=== PATIENT | female | born 1965 | race Caucasian/White ===

== ENCOUNTER 2016-12-15 19:32 | Emergency (ER) | payer OTHER ==
[2016-12-15 19:42] VITALS: BP 156/74; PULSE 81; RESP 16; TEMP 9
--- NOTE | 2016-12-15 20:02 | ED ---
Fall HPI - General Chief Complaint: Fall Stated Complaint: FALL Time Seen by Provider: 12/15/16 19:35 Source: patient, EMS, RN notes reviewed Mode of arrival: EMS - History of Present Illness Initial Comments: 51 yo female presents to the ER with cc of right elbow pain after a fall. Patient states [place] the [place] she missed a step and she fell onto her butt in her right elbow. Patient states she has little bit of right gluteal pain as well as right elbow pain. Worsening movement or touch at the back of the elbow. Patient states she's never had there is no loss of consciousness. Patient denies any lightheadedness or dizziness prior to the fall. Patient states she's other injuries from the fall. Patient denies any skin trauma.Patient denies any recent fever, chills, shortness of breath, chest pain, back pain, abdominal pain, nausea vomiting, numbness or tingling, dysuria or hematuria, constipation or diarrhea, headaches or visual changes, or any other current symptoms. - Related Data Home Medications Medication Instructions Recorded Confirmed Albuterol Inhaler [Ventolin 2 puff INHALATION RT-Q4H PRN 07/25/14 12/15/16 Inhaler] Omeprazole 40 mg PO DAILY 07/25/14 12/15/16 Ascorbic Acid [Vitamin C] 500 mg PO DAILY 12/15/16 12/15/16 Cholecalciferol [Vitamin D3] 1,000 unit PO DAILY 12/15/16 12/15/16 Citalopram Hydrobromide [CeleXA] 20 mg PO DAILY 12/15/16 12/15/16 Cyanocobalamin [Vitamin B-12] 500 mcg PO DAILY 12/15/16 12/15/16 Loratadine [Claritin] 10 mg PO DAILY 12/15/16 12/15/16 Magnesium 200 mg PO DAILY 12/15/16 12/15/16 Ranitidine HCl [Zantac] 150 mg PO DAILY 12/15/16 12/15/16 Previous Rx's Medication Instructions Recorded Hydrocodone/Acetaminophen [[place] 1 each PO Q6HR PRN #20 tab 12/15/16 5-325] Allergies Allergy/AdvReac Type Severity Reaction Status Date / Time clarithromycin [From Biaxin] Allergy Dyspnea Verified 12/15/16 19:58 Review of Systems ROS Statement: Those systems with pertinent positive or pertinent negative responses have been documented in the HPI. ROS Other: All systems not noted in ROS Statement are negative. Past Medical History Past Medical History: Asthma, GERD/Reflux, Hypertension Additional Past Medical History / Comment(s): frequent right ankle swelling History of Any Multi-Drug Resistant Organisms: None Reported Past Surgical History: Section, Hernia Repair, Hysterectomy, Orthopedic Surgery Additional Past Surgical History / Comment(s): right ankle surg Past Anesthesia/Blood Transfusion Reactions: Motion Sickness, Postoperative Nausea & Vomiting (PONV) Past Psychological History: Anxiety, Depression Smoking Status: Former smoker Past Alcohol Use History: None Reported Past Drug Use History: None Reported General Exam - General Exam Comments Initial Comments: General: The patient is awake and alert, in no distress, and does not appear acutely ill. Neck: The neck is supple, there is no tenderness. Cardiovascular: There is a regular rate and rhythm. No murmur, rub or gallop is appreciated. Respiratory: Lungs are clear to auscultation, respirations are non-labored, breath sounds are equal. No wheezes, stridor, rales, or rhonchi. Musculoskeletal: Sensation intact with 2+ pulses. Right upper joint. Full range motion of right shoulder right wrist and right hand with less than 2 capillary refill no bony deformity. Patient does have some tenderness to the posterior aspect of right elbow over the olecranon process as well as the needle epicondyles. There is no deformity noted. No skin trauma. Patient resists range of motion due to pain. Back: Patient does have some tenderness and abrasion over the right gluteal area. No tenderness over the lumbar midline. No paraspinal tenderness. No saddle anesthesia. Neurological: CN II-XII intact, There are no obvious motor or sensory deficits. Coordination appears grossly intact. Speech is normal. Skin: Skin is warm and dry and no rashes or lesions are noted. Psychiatric: Normal mood and affect. Limitations: no limitations Course Vital Signs 12/15/16 19:35 Temperature 9.0 F L Pulse Rate 81 Respiratory 16 Rate Blood Pressure 156/74 O2 Sat by Pulse 94 L Oximetry Medical Decision Making - Medical Decision Making 51-year-old female presents emergency Department chief complaint of fall. Patient's x-ray was reviewed that does not show any acute fracture at this time. Discussed with that she is right elbow contusion and lumbar strain from the fall. We did discuss that due to her tenderness on touch and unwillingness to range of motion of her sling to help with comfort we discussed the risk of frozen shoulder and when and how to use this as well as we discussed follow-up [place]. Patient stated that she understood she has been. The plan and all questions have been answered. She will be discharged. - Radiology Data Radiology results: report reviewed, image reviewed Disposition Clinical Impression: Fall, Contusion of right elbow, Lumbar strain Disposition: HOME SELF-CARE Condition: Stable Instructions: Contusion in Adults (ED) Additional Instructions: Please use medication as discussed. Please follow up with family doctor if symptoms have not improved over the next two days. Please return to the emergency room if your symptoms increase or worsen or for any other concerns. Prescriptions: Hydrocodone/Acetaminophen [[place] 5-325] 1 each PO Q6HR PRN #20 tab PRN Reason: Pain Referrals: Scottie De La Cruz DO [Primary Care Provider] - 1-2 days Obdulio Starkey DO [Doctor of Osteopathic Medicine] - 1-2 days Time of Disposition: 20:43
--- NOTE | 2016-12-15 20:33 | XR ---
Right elbow HISTORY: Trauma and pain 3 views of the right elbow Correlation to prior right elbow 19 December 2014 Bone mineralization, joint spaces and alignment are stable. Suspect an anterior fat pad sign, joint e ffusion. No acute fracture or dislocation is evident. IMPRESSION: Nonstandard views. No acute fracture or dislocation is evident. There may be joint effusi on, consider alternate imaging, elbow MRI as indicated for persistent symptoms.
--- NOTE | 2016-12-15 20:34 | XR ---
Lumbar spine HISTORY: Trauma and pain Correlation to prior exam December 3 views of the lumbar spine There is a dextroscoliosis centered at L2. Lumbar vertebral bodies show stable height, alignment, and bone mineralization. There is multilevel spondylosis. Sclerosis present in the posterior elements. IMPRESSION: Stable exam, no acute fracture or subluxation is evident
[2016-12-15] MEDS ORDERED: HYDROcodone/APAP 5-325MG 1 EACH TAB PO STA (20:56)
== END 2016-12-15 21:10 | disposition home or self-care (01) ==
LOC: EC 19:32
DX: S39.012A Strain of muscle, fascia and tendon of lower back, initial encounter (principal); S50.01XA Contusion of right elbow, initial encounter; J45.909 Unspecified asthma, uncomplicated; K21.9 Gastro-esophageal reflux disease without esophagitis; I10 Essential (primary) hypertension; F41.9 Anxiety disorder, unspecified; F32.9 Major depressive disorder, single episode, unspecified; Z87.891 Personal history of nicotine dependence; Z79.899 Other long term (current) drug therapy; Z88.1 Allergy status to other antibiotic agents; W10.9XXA Fall (on) (from) unspecified stairs and steps, initial encounter; Y92.254 Theater (live) as the place of occurrence of the external cause
CPT/HCPCS: 72100; 99284

== ENCOUNTER → 2016-12-21 | Outpatient (CLI) | payer OTHER ==
--- NOTE | 2016-12-21 17:32 | XR ---
EXAMINATION TYPE: XR lumbar spine 2 or 3V DATE OF EXAM: 12/21/2016 5:28 PM COMPARISON: 12/15/2016 HISTORY: Fell a week ago. Back pain. TECHNIQUE: 3 views FINDINGS: There is slight lumbar dextroscoliosis. The posterior elements are intact. I see no shari niko fracture. There is no significant disc space narrowing. There is mild spurring of the endplates. Sacroiliac joints appear normal. IMPRESSION: Minimal degenerative changes and dextroscoliosis. No fracture. No change compared to old exam.
== END | disposition home or self-care (01) ==
LOC: RADXRMAIN 17:13
PROVIDERS: ATTEND Family Medicine
DX: S39.92XD Unspecified injury of lower back, subsequent encounter (principal); M47.816 Spondylosis without myelopathy or radiculopathy, lumbar region; M41.9 Scoliosis, unspecified
CPT/HCPCS: 72100

== ENCOUNTER → 2017-11-12 | Outpatient (CLI) | payer OTHER ==
--- NOTE | 2017-11-14 13:53 | US ---
EXAMINATION TYPE: US carotid duplex BILAT DATE OF EXAM: 11/12/2017 COMPARISON: NONE CLINICAL HISTORY: R42 Dizziness and giddiness. htn EXAM MEASUREMENTS: RIGHT: Peak Systolic Velocity (PSV) cm/sec ----- Right CCA: 104.0 ----- Right ICA: 144.7 ----- Right ECA: 123.7 ICA/CCA ratio: 1.4 RIGHT: End Diastole cm/sec ----- Right CCA: 29.9 ----- Right ICA: 57.5 ----- Right ECA: 26.8 LEFT: Peak Systolic Velocity (PSV) cm/sec ----- Left CCA: 85.0 ----- Left ICA: 108.4 ----- Left ECA: 95.2 ICA/CCA ratio: 1.3 LEFT: End Diastole cm/sec ----- Left CCA: 24.5 ----- Left ICA: 45.8 ----- Left ECA: 18.3 VERTEBRALS (direction of flow): Right Vertebral: Antegrade Left Vertebral: Antegrade Rhythm: Normal Mild homogeneous plaque seen IMPRESSION: 1. Elevated peak systolic velocity and end-diastolic velocity in the right internal carotid artery in dicating a stenosis of 50-69%. This favored to be closer to 50% given the aleman scale images although further evaluation with CT neck could be performed for more accurate assessment. 2. No hemodynamically significant stenosis within the left visualized carotid arterial system.
== END | disposition home or self-care (01) ==
LOC: RADUSWWP 16:19
PROVIDERS: ATTEND Family Medicine
DX: I65.21 Occlusion and stenosis of right carotid artery (principal)
CPT/HCPCS: 93880

== ENCOUNTER → 2018-02-08 | Outpatient (CLI) | payer OTHER ==
--- NOTE | 2018-02-10 08:54 | MM ---
Reason for exam: screening (asymptomatic). Last mammogram was performed 14 years and 1 month ago. History: Family history of breast cancer. Excisional biopsy of the left breast. Excisional biopsy of the right breast. Physical Findings: A clinical breast exam by your physician is recommended on an annual basis and results should be correlated with mammographic findings. MG 3D Screening Mammo W/Cad Bilateral CC and MLO view(s) were taken. Prior study comparison: August 30, 2015, mammogram. August 08, 2014, mammogram. The breast tissue is extremely dense which could obscure a lesion on mammography. Finding: There are stable typically benign fine, grouped/clustered calcifications in the upper quadrant, middle position of the left breast seen on MLO view. There is a chronic nodularity bilaterally. No significant changes in finding since August 30, 2015 and August 08, 2014. ASSESSMENT: Benign, BI-RAD 2 RECOMMENDATION: Routine screening mammogram of both breasts in 1 year.
== END | disposition home or self-care (01) ==
LOC: RADMAMWWP 12:38
PROVIDERS: ATTEND Family Medicine
DX: Z12.31 Encounter for screening mammogram for malignant neoplasm of breast (principal)
CPT/HCPCS: 77063; 77067

== ENCOUNTER → 2018-05-23 | Outpatient (CLI) | payer OTHER ==
--- NOTE | 2018-05-23 12:36 | US ---
EXAMINATION TYPE: US gallbladder DATE OF EXAM: 05/23/2018 COMPARISON: NONE CLINICAL HISTORY: 52-year-old female Gallstones K80.20. Intermittent abdominal pain and heartburn x c ouple months TECHNIQUE: Multiple sonographic images of the right upper quadrant are obtained. FINDINGS: EXAM MEASUREMENTS: Liver Length: 15.4 cm Gallbladder Wall: 0.1 cm CBD: 0.3 cm Right Kidney: 11.4 x 4.7 x 6.2 cm Pancreas: visualized portions appear within normal limits. The tail is limited by overlying midline bowel gas Liver: Echogenic and slightly heterogeneous. No focal lesion is seen. Gallbladder: wnl Evidence for sonographic De La Cruz's sign: yes CBD: visualized portions wnl, limited by overlying bowel gas Right Kidney: Small cortical-based 1.2 x 0.9 x 1.3cm hypoechoic area medial mid pole. There is mild pelvicaliectasis. IMPRESSION: 1. Echogenic and slightly heterogeneous appearance to the liver suggests underlying fatty infiltratio n or nonspecific hepatocellular disease. Correlate with LFTs, lipid profile, and patient risk factors . 2. Positive sonographic De La Cruz's sign despite the normal appearance of the gallbladder. This could re flect referred pain. If further imaging evaluation of the gallbladder is desired, consider HIDA scan with ejection fraction. 3. Mild right-sided pelvicaliectasis, probably transient. Short interval follow-up could be considere d. 4. A 6 month follow-up renal ultrasound recommended to reassess the 1.3 cm right kidney mid pole lesi on, probable cyst. Internal echoes could be artifactual or could represent debris.
== END | disposition home or self-care (01) ==
LOC: RADUSWWP 06:52
PROVIDERS: ATTEND Surgery Plastic and Reconstructive Surgery
DX: K80.20 Calculus of gallbladder without cholecystitis without obstruction (principal)
CPT/HCPCS: 76705

== ENCOUNTER → 2018-06-07 | Outpatient (CLI) | payer OTHER ==
--- NOTE | 2018-06-07 16:31 | NM ---
EXAMINATION TYPE: NM hepatobiliary w EF DATE OF EXAM: 06/07/2018 COMPARISON: NONE INDICATION: Gallstones TECHNIQUE: After the intravenous administration of 5.2 mCi Tc 99m Mebrofenin hepatobiliary scintigrap hy is performed. Images were obtained immediately post injection. FINDINGS: There is prompt uptake and excretion of radiotracer by the liver. Extrahepatic ducts are identified at 7 minutes. The gallbladder is visualized within 7 minutes. Small bowel activity is noted within 63 minutes. At one hour 8 ounces of oral ensure plus is given to mimic CCK and gallbladder ejection fraction is c alculated at 79 %, which is in the normal range. (Normal >35% and <80%.). IMPRESSION: 1. Normal hepatobiliary scan 2. Ejection fraction 79% is at the upper limits of normal. Consider biliary hyperkinesia potentially within the differential
== END | disposition home or self-care (01) ==
LOC: RADNMMAIN 12:47
PROVIDERS: ATTEND Surgery Plastic and Reconstructive Surgery
DX: K80.20 Calculus of gallbladder without cholecystitis without obstruction (principal); Z88.1 Allergy status to other antibiotic agents
CPT/HCPCS: 78226; A9537

== ENCOUNTER 2018-06-08 11:28 | Emergency (ER) | payer OTHER ==
[2018-06-08 11:32] VITALS: RESP 18
[2018-06-08 12:01] LABS: Basophils # (A) 0.1 k/uL (0-0.2); Basophils % (A) 1 %; Eosinophils # (A) 0.2 k/uL (0-0.7); Eosinophils % (A) 3 %; HCT 40.5 % (34.0-46.0); HGB 13.2 gm/dL (11.4-16.0); Lymphocytes # (A) 1.9 k/uL (1.0-4.8); Lymphocytes % (A) 25 %; MCH 26.6 pg (25.0-35.0); MCHC 32.7 g/dL (31.0-37.0); MCV 81.5 fL (80.0-100.0); Mean Platelet Volume 6.6; Monocytes # (A) 0.4 k/uL (0-1.0); Monocytes % (A) 6 %; Neutrophils # (A) 4.9 k/uL (1.3-7.7); Neutrophils % (A) 64 %; Platelet Count 264 k/uL (150-450); RBC 4.97 m/uL (3.80-5.40); RDW 13.5 % (11.5-15.5); WBC 7.6 k/uL (3.8-10.6)
[2018-06-08 12:05] LABS: ALT 27 U/L (9-52); AST 18 U/L (14-36); Albumin 4.1 g/dL (3.5-5.0); Alkaline Phosphatase 121 U/L (38-126); Amylase 79 U/L (30-110); Anion Gap 9 mmol/L; Blood Urea Nitrogen 12 mg/dL (7-17); Calcium 9.4 mg/dL (8.4-10.2); Carbon Dioxide 23 mmol/L (22-30); Chloride 105 mmol/L (98-107); Glucose 160 mg/dL (74-99); Lipase 232 U/L (23-300); Potassium 4.4 mmol/L (3.5-5.1); Sodium 137 mmol/L (137-145); Total Bilirubin 0.4 mg/dL (0.2-1.3); Total Protein 6.5 g/dL (6.3-8.2)
[2018-06-08] MEDS ORDERED: ONDANSETRON 4 MG/2 ML VIAL IVP STA ×2 (12:48→12:53)
[2018-06-08] MEDS ORDERED: PANTOPRAZOLE 40 MG/10 ML VIAL IVP STA (12:48)
[2018-06-08] MEDS ORDERED: SODIUM CHLORIDE 0.9% 1,000 ML IV STA (12:48)
[2018-06-08] MEDS ORDERED: MAG HYDROX/AL HYDROX/SIMETH 30 ML, HYOSCYAMINE ELIXIR 10 ML, CIMETIDINE HCL 300 MG PO STA ×3 (12:53)
[2018-06-08] MEDS ORDERED: KETOROLAC 30 MG/ML 1 ML VIAL IVP STA (12:53)
--- NOTE | 2018-06-08 12:56 | ED ---
Abdominal Pain HPI - General Chief Complaint: Abdominal Pain Stated Complaint: abdominal pain, vomiting, diarrhea Time Seen by Provider: 06/08/18 12:46 Source: patient, RN notes reviewed Mode of arrival: wheelchair Limitations: no limitations - History of Present Illness Initial Comments: This a 53-year-old female presents emergency Department with chief complaint of upper abdominal pain. Patient's been having ongoing pain and heartburn issues in which she's had ultrasound of the gallbladder, HIDA scan yesterday. Patient states since morning she's had severe upper abdominal pain, nausea vomiting diarrhea. Patient states that this is different than her normal symptoms. Patient denies any chest pain, shortness breath. Patient states that she is scheduled for an EGD next week. Patient states her surgeon is Dr. Cannon. - Related Data Home Medications Medication Instructions Recorded Confirmed Citalopram Hydrobromide 40 mg PO DAILY 10/03/17 06/08/18 [Citalopram HBr] Omeprazole 20 mg PO BID 10/03/17 06/08/18 Albuterol Sulfate [Proair Hfa] 2 puff INHALATION RT-Q6H PRN 06/08/18 06/08/18 Aspirin 81 mg PO Q48H 06/08/18 06/08/18 Cetirizine HCl/Pseudoephedrine 1 tab PO Q12H 06/08/18 06/08/18 [Zyrtec-D Tablet] Irbesartan/Hydrochlorothiazide 1 tab PO DAILY 06/08/18 06/08/18 [Irbesartan-Hctz 300-12.5 mg Tb] L.acidoph,Paracasei, B.lactis 1 cap PO DAILY 06/08/18 06/08/18 [Probiotic] Ranitidine HCl [Zantac] 150 mg PO BID 06/08/18 06/08/18 Umeclidinium Brm/Vilanterol Tr 1 puff INHALATION RT-DAILY 06/08/18 06/08/18 [Anoro Ellipta 62.5-25 Mcg INH] Previous Rx's Medication Instructions Recorded Ondansetron Odt [Zofran Odt] 4 mg PO Q8HR PRN #10 tab 06/08/18 Allergies Allergy/AdvReac Type Severity Reaction Status Date / Time clarithromycin [From Biaxin] Allergy Severe Dyspnea Verified 08/08/18 13:24 Review of Systems ROS Statement: Those systems with pertinent positive or pertinent negative responses have been documented in the HPI. ROS Other: All systems not noted in ROS Statement are negative. Past Medical History Past Medical History: Asthma, GERD/Reflux, Hypertension Additional Past Medical History / Comment(s): frequent right ankle swelling History of Any Multi-Drug Resistant Organisms: None Reported Past Surgical History: Section, Hernia Repair, Hysterectomy, Orthopedic Surgery Additional Past Surgical History / Comment(s): right ankle surg Past Anesthesia/Blood Transfusion Reactions: Motion Sickness, Postoperative Nausea & Vomiting (PONV) Past Psychological History: Anxiety, Depression Smoking Status: Former smoker Past Alcohol Use History: None Reported Past Drug Use History: None Reported - Past Family History Mother Family Medical History: No Reported History General Exam Limitations: no limitations General appearance: alert, in no apparent distress Head exam: Present: atraumatic, normocephalic, normal inspection Respiratory exam: Present: normal lung sounds bilaterally. Absent: respiratory distress, wheezes, rales, rhonchi, stridor Cardiovascular Exam: Present: regular rate, normal rhythm, normal heart sounds. Absent: systolic murmur, diastolic murmur, rubs, gallop, clicks GI/Abdominal exam: Present: soft, tenderness (Moderate epigastric tenderness), normal bowel sounds. Absent: distended, guarding, rebound, rigid Back exam: Absent: CVA tenderness (R), CVA tenderness (L) Course Vital Signs 06/08/18 06/08/18 11:29 13:50 Temperature 98.3 F Pulse Rate 75 59 L Respiratory 18 18 Rate Blood Pressure 164/76 140/66 O2 Sat by Pulse 97 94 L Oximetry Medical Decision Making - Medical Decision Making 53-year-old female presented for ongoing abdominal issues, nausea vomiting. Patient had a HIDA scan yesterday which shows dysfunctional gallbladder. Patient will given antiemetics, Toradol and Protonix in her symptoms have resolved. Patient will be discharged with Zofran and she'll follow-up with her surgeon. - Lab Data Result diagrams: 06/08/18 11:36 06/08/18 11:36 Lab Results 06/08/18 06/08/18 06/08/18 Range/Units 11:36 11:36 13:45 WBC 7.6 (3.8-10.6) k/uL RBC 4.97 (3.80-5.40) m/uL Hgb 13.2 (11.4-16.0) gm/dL Hct 40.5 (34.0-46.0) % MCV 81.5 (80.0-100.0) fL MCH 26.6 (25.0-35.0) pg MCHC 32.7 (31.0-37.0) g/dL RDW 13.5 (11.5-15.5) % Plt Count 264 (150-450) k/uL Neutrophils % 64 % Lymphocytes % 25 % Monocytes % 6 % Eosinophils % 3 % Basophils % 1 % Neutrophils # 4.9 (1.3-7.7) k/uL Lymphocytes # 1.9 (1.0-4.8) k/uL Monocytes # 0.4 (0-1.0) k/uL Eosinophils # 0.2 (0-0.7) k/uL Basophils # 0.1 (0-0.2) k/uL Sodium 137 (137-145) mmol/L Potassium 4.4 (3.5-5.1) mmol/L Chloride 105 (98-107) mmol/L Carbon Dioxide 23 (22-30) mmol/L Anion Gap 9 mmol/L BUN 12 (7-17) mg/dL Creatinine 0.61 (0.52-1.04) mg/dL Est GFR (CKD-EPI)AfAm >90 (>60 ml/min/1.73 sqM) Est GFR (CKD-EPI)NonAf >90 (>60 ml/min/1.73 sqM) Glucose 160 H (74-99) mg/dL Calcium 9.4 (8.4-10.2) mg/dL Total Bilirubin 0.4 (0.2-1.3) mg/dL AST 18 (14-36) U/L ALT 27 (9-52) U/L Alkaline Phosphatase 121 (38-126) U/L Total Protein 6.5 (6.3-8.2) g/dL Albumin 4.1 (3.5-5.0) g/dL Amylase 79 (30-110) U/L Lipase 232 (23-300) U/L Urine Color Light Yellow Urine Appearance Clear (Clear) Urine pH 6.5 (5.0-8.0) Ur Specific [place] 1.007 (1.001-1.035) Urine Protein Negative (Negative) Urine Glucose (UA) Negative (Negative) Urine Ketones Negative (Negative) Urine Blood Negative (Negative) Urine Nitrite Negative (Negative) Urine Bilirubin Negative (Negative) Urine Urobilinogen <2.0 (<2.0) mg/dL Ur Leukocyte Esterase Small H (Negative) Urine WBC 2 (0-5) /hpf Ur Squamous Epith Cells <1 (0-4) /hpf Urine Mucus Rare H (None) /hpf Disposition Clinical Impression: Nausea & vomiting, Biliary dyskinesia Disposition: HOME SELF-CARE Condition: Stable Instructions: Acute Nausea and Vomiting (ED) Additional Instructions: Please return to the Emergency Department if symptoms worsen or any other concerns. Prescriptions: Ondansetron Odt [Zofran Odt] 4 mg PO Q8HR PRN #10 tab PRN Reason: Nausea Is patient prescribed a controlled substance at d/c from ED?: No Referrals: Scottie De La Cruz DO [Primary Care Provider] - 1-2 days Dora Knapp MD [STAFF PHYSICIAN] - 1-2 days Time of Disposition: 14:44
[2018-06-08 14:17] LABS: Appearance,Urine Clear (Clear); Bilirubin,Urine Negative (Negative); Blood,Urine Negative (Negative); Color,Urine Light Yellow; Glucose,Urine (UA) Negative (Negative); Ketones,Urine Negative (Negative); Leukocyte Esterase,Urine Small (Negative); Mucus,Urine Rare /hpf; Nitrite,Urine Negative (Negative); PH, Urine 6.5 (5.0-8.0); Protein,Urine Negative (Negative); Specific Gravity,Urine 1.007 (1.001-1.035); Squamous Epithelial Cell,Urine <1 /hpf (0-4); Urobilinogen,Urine <2.0 mg/dL (<2.0); WBC,Urine 2 /hpf (0-5)
[2018-06-08 15:02] VITALS: BP 126/77; PULSE 86; TEMP 98.5
== END 2018-06-08 15:01 | disposition home or self-care (01) ==
LOC: EC 11:28
DX: K82.8 Other specified diseases of gallbladder (principal); R11.2 Nausea with vomiting, unspecified; R19.7 Diarrhea, unspecified; R10.13 Epigastric pain; J45.909 Unspecified asthma, uncomplicated; K21.9 Gastro-esophageal reflux disease without esophagitis; I10 Essential (primary) hypertension; F32.9 Major depressive disorder, single episode, unspecified; F41.9 Anxiety disorder, unspecified; Z87.891 Personal history of nicotine dependence; Z79.82 Long term (current) use of aspirin; Z79.51 Long term (current) use of inhaled steroids; Z79.899 Other long term (current) drug therapy; Z88.1 Allergy status to other antibiotic agents
CPT/HCPCS: 36415; 80053; 82150; 83690; 85025; 81001; 99284; 96374; 96375 ×2; 96361; J2405; J1885; C9113

== ENCOUNTER 2018-06-20 13:01 | Day surgery (SDC) | payer OTHER ==
[2018-06-16 14:48] VITALS: BMI 31.7
--- NOTE | 2018-06-19 17:02 | P.GSHP ---
History of Present Illness H&P Date: 06/20/18 CHIEF COMPLAINT: GERD HISTORY OF PRESENT ILLNESS: The patient is a 53-year-old female who presents reports gastroesophageal reflux disease. Upper endoscopy was offered for further evaluation and management. PAST MEDICAL HISTORY: Please see list. PAST SURGICAL HISTORY: Please see list. MEDICATIONS: Please see list. ALLERGIES: Please see list. SOCIAL HISTORY: No illicit drug use FAMILY HISTORY: No reports of Crohn disease or ulcerative colitis. REVIEW OF ORGAN SYSTEMS: CONSTITUTIONAL: No reports of fevers or chills. GI: Denies any blood in stools or constipation. PHYSICAL EXAM: VITAL SIGNS: Stable GENERAL: Well-developed and pleasant in no acute distress. HEENT: No scleral icterus. Extraocular movements grossly intact. Moist buccal mucosa. NECK: Supple without lymphadenopathy. CHEST: Unlabored respirations. Equal bilateral excursions. CARDIOVASCULAR: Regular rate and rhythm. Distal 2+ pulses. ABDOMEN: Soft, nondistended. MUSCULOSKELETAL: No clubbing, cyanosis, or edema. ASSESSMENT: 1. Gastroesophageal reflux disease PLAN: 1. Recommend proceeding with an upper endoscopy Past Medical History Past Medical History: Asthma, GERD/Reflux, Hypertension Additional Past Medical History / Comment(s): frequent right ankle swelling. ABD PAIN WITH N/V History of Any Multi-Drug Resistant Organisms: None Reported Past Surgical History: Section, Hernia Repair, Hysterectomy, Orthopedic Surgery Additional Past Surgical History / Comment(s): right ankle surg Past Anesthesia/Blood Transfusion Reactions: Motion Sickness, Postoperative Nausea & Vomiting (PONV) Smoking Status: Former smoker - Past Family History Mother Family Medical History: No Reported History Medications and Allergies Home Medications Medication Instructions Recorded Confirmed Type Citalopram Hydrobromide 40 mg PO DAILY 10/03/17 06/16/18 History [Citalopram HBr] Omeprazole 20 mg PO BID 10/03/17 06/16/18 History Albuterol Sulfate [Proair Hfa] 2 puff INHALATION RT-Q6H PRN 06/08/18 06/16/18 History Aspirin 81 mg PO Q48H 06/08/18 06/16/18 History Cetirizine HCl/Pseudoephedrine 1 tab PO Q12H 06/08/18 06/16/18 History [Zyrtec-D Tablet] Irbesartan/Hydrochlorothiazide 1 tab PO DAILY 06/08/18 06/16/18 History [Irbesartan-Hctz 300-12.5 mg Tb] L.acidoph,Paracasei, B.lactis 1 cap PO DAILY 06/08/18 06/16/18 History [Probiotic] Ondansetron Odt [Zofran Odt] 4 mg PO Q8HR PRN #10 tab 06/08/18 06/16/18 Rx Ranitidine HCl [Zantac] 150 mg PO BID 06/08/18 06/16/18 History Umeclidinium Brm/Vilanterol Tr 1 puff INHALATION RT-DAILY 06/08/18 06/16/18 History [Anoro Ellipta 62.5-25 Mcg INH] Allergies Allergy/AdvReac Type Severity Reaction Status Date / Time clarithromycin [From Biaxin] Allergy Severe Dyspnea Verified 06/16/18 14:45
[2018-06-20 13:57] VITALS: RESP 18; TEMP 98.2
[2018-06-20] MEDS: LACTATED RINGERS 1,000 ML IV SCH ×2 (13:58→15:05)
[2018-06-20] MEDS ORDERED: LIDOCAINE 1% 20 ML VIAL (10MG/ML) FOR IV START INTRADERMA ONE (13:58)
[2018-06-20] MEDS ORDERED: PROPOFOL 10 MG/ML 20 ML VIAL IV ONE (15:10)
--- NOTE | 2018-06-20 15:27 | P.PCN ---
Date of Procedure: 06/20/18 Description of Procedure: PREOPERATIVE DIAGNOSIS: Gastroesophageal reflux disease. Epigastric abdominal pain POSTOPERATIVE DIAGNOSIS: Gastritis, with recent bleeding Acute gastric ulcer along antrum Gastroesophageal reflux disease. OPERATION: Esophagogastroduodenoscopy with biopsies along antrum. SURGEON: Dora Knapp MD ANESTHESIA: MAC. INDICATIONS: The patient is a 53-year-old female who presents with a history of reflux disease and epigastric abdominal pain. Benefits and risks of the procedure were described. Informed consent was obtained. DESCRIPTION: The patient was brought into the endoscopy suite and laid in the left lateral decubitus position. An Olympus gastroscope was passed along the posterior oropharynx down to the distal esophagus where the squamocolumnar junction was encountered at 41 cm from the incisors. The stomach was entered and no bile reflux was found. Additional findings are listed below. Biopsies with cold forceps were obtained of the antrum. The first through third portion of the duodenum was examined and unremarkable. Retroflexion of the scope confirmed Hill grade 1 lower esophageal valve. The squamocolumnar junction demonstrated no LA grade A erosive esophagitis. The stomach was desufflated. The patient tolerated the procedure well. FINDINGS: Squamocolumnar junction 41 cm from the incisors. Diaphragmatic hiatus at 41 cm. Hill grade 1 lower esophageal valve. No LA grade A erosive esophagitis. Gastric ulcer, acute along antrum biopsy obtained No active duodenitis. RECOMMENDATIONS: Upper endoscopy as needed. Plan - Discharge Summary New Discharge Prescriptions: No Action Omeprazole 20 mg PO BID Citalopram Hydrobromide [Citalopram HBr] 40 mg PO DAILY Ranitidine HCl [Zantac] 150 mg PO BID L.acidoph,Paracasei, B.lactis [Probiotic] 1 cap PO DAILY Albuterol Sulfate [Proair Hfa] 2 puff INHALATION RT-Q6H PRN PRN Reason: Shortness Of Breath Irbesartan/Hydrochlorothiazide [Irbesartan-Hctz 300-12.5 mg Tb] 1 tab PO DAILY Umeclidinium Brm/Vilanterol Tr [Anoro Ellipta 62.5-25 Mcg INH] 1 puff INHALATION RT-DAILY Cetirizine HCl/Pseudoephedrine [Zyrtec-D Tablet] 1 tab PO Q12H Aspirin 81 mg PO Q48H Ondansetron Odt [Zofran Odt] 4 mg PO Q8HR PRN #10 tab PRN Reason: Nausea Discharge Medication List Citalopram Hydrobromide [Citalopram HBr] 40 mg PO DAILY 10/03/17 [History] Omeprazole 20 mg PO BID 10/03/17 [History] Albuterol Sulfate [Proair Hfa] 2 puff INHALATION RT-Q6H PRN 06/08/18 [History] Aspirin 81 mg PO Q48H 06/08/18 [History] Cetirizine HCl/Pseudoephedrine [Zyrtec-D Tablet] 1 tab PO Q12H 06/08/18 [History ] Irbesartan/Hydrochlorothiazide [Irbesartan-Hctz 300-12.5 mg Tb] 1 tab PO DAILY 06/08/18 [History] L.acidoph,Paracasei, B.lactis [Probiotic] 1 cap PO DAILY 06/08/18 [History] Ondansetron Odt [Zofran Odt] 4 mg PO Q8HR PRN #10 tab 06/08/18 [Rx] Ranitidine HCl [Zantac] 150 mg PO BID 06/08/18 [History] Umeclidinium Brm/Vilanterol Tr [Anoro Ellipta 62.5-25 Mcg INH] 1 puff INHALATION RT-DAILY 06/08/18 [History]
[2018-06-20 15:34] VITALS: BP 138/78
[2018-06-20 15:48] VITALS: PULSE 68
== END 2018-06-20 16:03 | disposition home or self-care (01) ==
LOC: ORWHC2ENDO 13:01
PROVIDERS: ATTEND Surgery Plastic and Reconstructive Surgery
DX: K22.10 Ulcer of esophagus without bleeding (principal); K25.3 Acute gastric ulcer without hemorrhage or perforation; K29.71 Gastritis, unspecified, with bleeding; K21.9 Gastro-esophageal reflux disease without esophagitis; J45.909 Unspecified asthma, uncomplicated; I10 Essential (primary) hypertension; Z87.891 Personal history of nicotine dependence; Z79.899 Other long term (current) drug therapy; Z79.82 Long term (current) use of aspirin; Z88.1 Allergy status to other antibiotic agents
CPT/HCPCS: 43239; J2704; 88305

== ENCOUNTER 2018-07-14 10:19 | Day surgery (SDC) | payer OTHER ==
[2018-07-13 10:30] VITALS: BMI 31.7
--- NOTE | 2018-07-13 19:11 | P.GSHP ---
History of Present Illness H&P Date: 07/14/18 CHIEF COMPLAINT: Cholecystitis HISTORY OF PRESENT ILLNESS: The patient is a 53-year-old female who presents with history of epigastric including right upper quadrant abdominal pain. She underwent diagnostic studies for her gallbladder. Separately her clinical picture was consistent with cholecystitis. Now she presents for surgical intervention. PAST MEDICAL HISTORY: Please see list PAST SURGICAL HISTORY: Please see list MEDICATIONS: Please see list ALLERGIES: Denies. SOCIAL HISTORY: No illicit drug use or recent tobacco use FAMILY HISTORY: Pertinent for gallbladder disease REVIEW OF ORGAN SYSTEMS: CONSTITUTIONAL: No reports of fevers or chills. HEENT: Denies any troubles with the vision or hearing. PHYSICAL EXAM: VITAL SIGNS: Afebrile vital signs stable GENERAL: Well-developed pleasant in no acute distress. HEENT: No scleral icterus. Extraocular movements grossly intact. Moist buccal mucosa. NECK: Supple without lymphadenopathy. CHEST: Unlabored respirations. Equal bilateral excursions. CARDIOVASCULAR: Regular rate regular rhythm rhythm. Distal 2+ pulses. ABDOMEN: Soft, nondistended. Tender along the epigastrium and right upper quadrant. MUSCULOSKELETAL: No clubbing, cyanosis, or edema. NEURO: Cranial nerves II to XII within normal limits. No focal or lateralizing signs. PSYCH: Alert and oriented to person, place and time. SKIN: Well-perfused good skin turgor. ASSESSMENT: 1. Epigastric and right upper quadrant abdominal pain 2. Chronic cholecystitis 3. Symptomatic gallstones. PLAN: 1. Will need a robotic cholecystectomy possible open. Benefits and risks were described. 2. Heparin for DVT prophylaxis 5000 units. 3. Antibiotic prophylaxis. Past Medical History Past Medical History: Asthma, GERD/Reflux, Hypertension Additional Past Medical History / Comment(s): frequent right ankle swelling. ABD PAIN WITH N/V History of Any Multi-Drug Resistant Organisms: None Reported Past Surgical History: Section, Hernia Repair, Hysterectomy, Orthopedic Surgery Additional Past Surgical History / Comment(s): right ankle surg Past Anesthesia/Blood Transfusion Reactions: Motion Sickness, Postoperative Nausea & Vomiting (PONV) Smoking Status: Former smoker - Past Family History Mother Family Medical History: No Reported History Medications and Allergies Home Medications Medication Instructions Recorded Confirmed Type Citalopram Hydrobromide 40 mg PO QAM 10/03/17 07/13/18 History [Citalopram HBr] Albuterol Sulfate [Proair Hfa] 2 puff INHALATION RT-Q6H PRN 06/08/18 07/13/18 History Cetirizine HCl/Pseudoephedrine 1 tab PO Q12H PRN 06/08/18 07/13/18 History [Zyrtec-D Tablet] Irbesartan/Hydrochlorothiazide 1 tab PO QAM 06/08/18 07/13/18 History [Irbesartan-Hctz 300-12.5 mg Tb] L.acidoph,Paracasei, B.lactis 1 cap PO DAILY 06/08/18 07/13/18 History [Probiotic] Ondansetron Odt [Zofran Odt] 4 mg PO Q8HR PRN #10 tab 06/08/18 07/13/18 Rx Umeclidinium Brm/Vilanterol Tr 1 puff INHALATION RT-DAILY 06/08/18 07/13/18 History [Anoro Ellipta 62.5-25 Mcg INH] Omeprazole 40 mg PO QAM 07/13/18 07/13/18 History Sucralfate [Carafate] 1 gm PO ACHS 07/13/18 07/13/18 History Allergies Allergy/AdvReac Type Severity Reaction Status Date / Time clarithromycin [From Biaxin] Allergy Severe Dyspnea Verified 07/13/18 10:19
[~2018-07-14 10:19] MED LIST: DEXAMETHASONE SOD PHOSPHATE 10 MG/ML 1 ML VIAL IV ONE; HEPARIN SODIUM,PORCINE 5,000 UNIT/ML 1 ML VIAL SQ ONE; HEPARIN SODIUM,PORCINE 5,000 UNIT/ML 1 ML VIAL SQ STA; INDOCYANINE GREEN 25 MG VIAL IV STA; LACTATED RINGERS 1,000 ML IV SCH; MIDAZOLAM 2 MG/2 ML VIAL IV PRN; ONDANSETRON 4 MG/2 ML VIAL IVP ONE; SCOPOLAMINE 1.5MG/72HR PATCH TRANSDERM ONE; ceFAZolin IN SWFI 2 GM/20 ML SYRINGE IVP ONE
[2018-07-14] MEDS ORDERED: LIDOCAINE 1% 20 ML VIAL (10MG/ML) FOR IV START INTRADERMA ONE (11:05)
[2018-07-14] MEDS ORDERED: ePHEDrine SULFATE/0.9% NACL/PF 50 MG/5 ML SYRINGE IV ONE (12:26)
[2018-07-14] MEDS ORDERED: PROPOFOL 10 MG/ML 20 ML VIAL IV ONE (12:26)
[2018-07-14] MEDS ORDERED: INDOCYANINE GREEN 25 MG VIAL IV ONE (12:26)
[2018-07-14] MEDS ORDERED: GLYCOPYRROLATE 0.2 MG/ML 2 ML VIAL ONE (12:26)
[2018-07-14] MEDS ORDERED: NEOSTIGMINE 1 MG/ML 10 ML VIAL ONE (12:26)
[2018-07-14] MEDS ORDERED: fentaNYL (PF) 50 MCG/ML 2 ML AMP ONE (12:26)
[2018-07-14] MEDS ORDERED: HYDROmorphone (PF) 1 MG/ML ONE (12:26)
[2018-07-14] MEDS ORDERED: MIDAZOLAM 2 MG/2 ML VIAL ONE (12:26)
[2018-07-14] MEDS ORDERED: ROCURONIUM BROMIDE 10 MG/ML 10 ML VIAL IV ONE (12:26)
[2018-07-14] MEDS ORDERED: SUCCINYLCHOLINE CHLORIDE 100 MG/5 ML SYR IV ONE (12:26)
[2018-07-14] MEDS ORDERED: LIDOCAINE 1% INJ 10MG/ML (20 ML MDV) ONE (12:26)
[2018-07-14] MEDS ORDERED: BUPIVACAIN-EPI 0.25%-1:200,000 30 ML VIAL SQ ONE (12:48)
--- NOTE | 2018-07-14 13:45 | P.OP ---
Date of Procedure: 07/14/18 Description of Procedure: SURGEON: KARY KELLEY MD PREOPERATIVE DIAGNOSES: 1. Right upper quadrant abdominal pain 2. Chronic cholecystitis 3. Hypertensive heart disease 4. Depression 5. Asthma 6. Gastroesophageal reflux disease POSTOPERATIVE DIAGNOSES: 1. Right upper quadrant abdominal pain 2. Chronic cholecystitis 3. Hypertensive heart disease 4. Depression 5. Asthma 6. Gastroesophageal reflux disease 7. Severe peritoneal adhesions, midline and right upper quadrant OPERATION: 1. Robotic-assisted da Rachel Xi laparoscopic extensive lysis of adhesions 2. Robotic-assisted da Rachel Xi laparoscopic cholecystectomy, multiport with FIREFLY ESTIMATED BLOOD LOSS: 5 mL. SPECIMENS REMOVED: Gallbladder. COMPLICATIONS: None. OPERATIVE FINDINGS: 1. Chronic cholecystitis INDICATIONS: The patient is a 53-year-old female who presents with cholelcystitis. Surgical intervention with a laparoscopic cholecystectomy was described at length including injury to the biliary tree, bleeding, infection, need for further surgery. Informed consent was obtained. Robotic assisted laparoscopic approach was described. Benefits and risks of the procedure including but not limited to bleeding, infection, injury to the biliary tree was described. Informed consent was obtained. DESCRIPTION OF PROCEDURE: Patient was brought to the operating room, placed in supine position. After general induction, the abdomen had been prepped and draped in standard sterile fashion. The robotic da Rachel XI system was primed. After a timeout protocol was performed, the patient had been prepped and draped in standard sterile fashion. The patient was injected with indocyanine green. A 5 mm 0 degrees laparoscopic trocar entry was performed along the left upper quadrant. The abdomen insufflated to 15 mmHg pressure which she tolerated well. Diagnostic laparoscopy demonstrated no injury to bowel viscera or mesentery. Severe midline peritoneal adhesions of greater omentum to abdominal wall was found from previous open laparotomy. Severe adhesions involving the liver including shan-hepatic lesions were found. Next, two 8 mm robotic ports were placed along the right upper abdomen. The camera 8-mm port was maintained along the epigastrium. Another 8 mm port was placed along the left upper abdominal wall after exchanging the 5 mm port. Please note that the ports were placed at least 10 to 15 cm away from the target anatomy of the gallbladder. The robot was docked along the left lateral abdomen. The patient was repositioned in reverse Trendelenburg position. Using a grasper for arm 3, a grasper for arm 4, including hook cautery for arm 1 , the robotic system was docked and primed as described. Instruments were interchanged by the preschool teacher assistant including vessel sealer, Bovie cautery and clip appliers. I had sat at the console. Extensive lysis of adhesions over 10 minutes were performed using vessel sealer to address the midline, right upper quadrant and shan-hepatic adhesions. Adhesions were identified along the infundibulum of the gallbladder and addressed using hook cautery. The gallbladder fundus was retracted over the dome of the liver. Initial attention was brought to the infundibulum which was gently retracted in the inferior lateral approach. Using a grasper, the cystic duct including the cystic artery was carefully skeletonized. FIREFLY was used to identify the cystic artery and cystic structures. Large PLASTIC clips were used throughout the entire case. Using a clip ramp flight attendant 2 clips were placed proximally, and 1 clip was placed distally along the cystic duct and then cauterized with the cautery. Again care was taken to avoid any injury to the biliary tree as the common bile duct was clearly visualized during this portion of dissection. Next, the cystic artery was similarly clipped and cauterized. Electro-Bovie cautery was used to remove the gallbladder from the hepatic fossa. Hemostasis was checked and found to be adequate. The robot was undocked. I re-scrubbed into the case. Using a 10 mm Endo Catch bag via the left upper quadrant incision, the specimen was removed from the abdominal cavity. All pneumoperitoneum instruments were evacuated from the abdominal cavity. The incisions were reapproximated using 4-0 Monocryl in an interrupted subcuticular fashion. Fascial defects were less than 8 mm in size. Please note along the trocar sites, local anesthetic was placed as a field block prior to insertion of all instruments. Liquid glue was applied to the skin. At the end of the procedure needle, sponge, and instrument count had been verified correct by the ophthalmic surgical assistant. The patient was transferred to postanesthesia care unit in stable condition. Intraoperative films were shared with the patient's family who were very pleased with the level of care. Console time 29 minutes Plan - Discharge Summary New Discharge Prescriptions: New HYDROcodone/APAP 7.5-325MG [[place] 7.5-325] 1 tab PO Q4H PRN 3 Days #18 tab PRN Reason: Pain No Action Citalopram Hydrobromide [Citalopram HBr] 40 mg PO QAM L.acidoph,Paracasei, B.lactis [Probiotic] 1 cap PO DAILY Albuterol Sulfate [Proair Hfa] 2 puff INHALATION RT-Q6H PRN PRN Reason: Shortness Of Breath Irbesartan/Hydrochlorothiazide [Irbesartan-Hctz 300-12.5 mg Tb] 1 tab PO QAM Umeclidinium Brm/Vilanterol Tr [Anoro Ellipta 62.5-25 Mcg INH] 1 puff INHALATION RT-DAILY Cetirizine HCl/Pseudoephedrine [Zyrtec-D Tablet] 1 tab PO Q12H PRN PRN Reason: Allergy Symptoms Ondansetron Odt [Zofran Odt] 4 mg PO Q8HR PRN #10 tab PRN Reason: Nausea Sucralfate [Carafate] 1 gm PO ACHS Omeprazole 40 mg PO QAM Discharge Medication List Citalopram Hydrobromide [Citalopram HBr] 40 mg PO QAM 10/03/17 [History] Albuterol Sulfate [Proair Hfa] 2 puff INHALATION RT-Q6H PRN 06/08/18 [History] Cetirizine HCl/Pseudoephedrine [Zyrtec-D Tablet] 1 tab PO Q12H PRN 06/08/18 [ History] Irbesartan/Hydrochlorothiazide [Irbesartan-Hctz 300-12.5 mg Tb] 1 tab PO QAM 06/18 [History] L.acidoph,Paracasei, B.lactis [Probiotic] 1 cap PO DAILY 06/08/18 [History] Ondansetron Odt [Zofran Odt] 4 mg PO Q8HR PRN #10 tab 06/08/18 [Rx] Umeclidinium Brm/Vilanterol Tr [Anoro Ellipta 62.5-25 Mcg INH] 1 puff INHALATION RT-DAILY 06/08/18 [History] Omeprazole 40 mg PO QAM 07/13/18 [History] Sucralfate [Carafate] 1 gm PO ACHS 07/13/18 [History] HYDROcodone/APAP 7.5-325MG [[place] 7.5-325] 1 tab PO Q4H PRN 3 Days #18 tab 07/14 [Rx] Patient Instructions/Handouts: *Surgery [facility] - Scopalamine Patch Instructions
[2018-07-14 13:53] VITALS: TEMP 98.7
[2018-07-14 14:03] VITALS: RESP 16
[2018-07-14] MEDS: fentaNYL (PF) 50 MCG/ML 2 ML AMP IV PRN ×2 (14:22→14:59)
[2018-07-14] MEDS ORDERED: HYDROcodone/APAP 7.5-325MG 1 EACH TAB PO ONE (16:45)
[2018-07-14] MEDS ORDERED: HALOPERIDOL LACTATE 5 MG/ML 1 ML VIAL IVP ONE (17:49)
[2018-07-14] MEDS ORDERED: ONDANSETRON 4 MG/2 ML VIAL IVP ONE (17:55)
[2018-07-14] MEDS ORDERED: LACTATED RINGERS 1,000 ML IV ONE (18:14)
[2018-07-14 18:27] VITALS: BP 137/76; PULSE 76
== END 2018-07-14 19:51 | disposition home or self-care (01) ==
LOC: OR 10:19
PROVIDERS: ATTEND Surgery Plastic and Reconstructive Surgery
DX: K81.1 Chronic cholecystitis (principal); K66.0 Peritoneal adhesions (postprocedural) (postinfection); I11.9 Hypertensive heart disease without heart failure; F32.9 Major depressive disorder, single episode, unspecified; J45.909 Unspecified asthma, uncomplicated; K21.9 Gastro-esophageal reflux disease without esophagitis; Z79.899 Other long term (current) drug therapy; Z88.1 Allergy status to other antibiotic agents; Z87.891 Personal history of nicotine dependence
CPT/HCPCS: 47562; J2250; J1644; J1100; J2710; J2405; J2001; J3010; J1170; J0330; J2704; J0690; 88304

== ENCOUNTER → 2018-11-08 | Outpatient (CLI) | payer OTHER ==
--- NOTE | 2018-11-08 14:41 | XR ---
EXAMINATION TYPE: XR chest 2V DATE OF EXAM: 11/08/2018 COMPARISON: 10/04/2017 HISTORY: 53-year-old female moderate persistent asthma TECHNIQUE: Frontal and lateral views FINDINGS: Heart normal size. Aorta and pulmonary vasculature within normal limits. Some strandy atelectasis at the left base. Mild hyperinflation. No consolidation or pleural effusion. IMPRESSION: Mild hyperinflation may reflect asthma. Strandy atelectasis at the left base. No acute cardiopulmonar y process.
== END ==
LOC: RADXRMAIN 10:38
PROVIDERS: ATTEND Family Medicine
DX: J98.11 Atelectasis (principal)
CPT/HCPCS: 71046

== ENCOUNTER → 2018-11-21 | Outpatient (CLI) | payer OTHER ==
--- NOTE | 2018-11-21 13:54 | US ---
EXAMINATION TYPE: US carotid duplex BILAT DATE OF EXAM: 11/21/2018 COMPARISON: 11/12/2017 CLINICAL HISTORY: 53-year-old female I65.29 occlusion stenosis. TECHNIQUE: Carotid duplex ultrasound examination. Indirect Doppler criteria was utilized. FINDINGS: EXAM MEASUREMENTS: RIGHT: Peak Systolic Velocity (PSV) cm/sec ----- Right CCA: 92.8 ----- Right ICA: 117.4 ----- Right ECA: 88.6 ICA/CCA ratio: 1.3 RIGHT: End Diastole cm/sec ----- Right CCA: 24.1 ----- Right ICA: 44.8 ----- Right ECA: 10.0 LEFT: Peak Systolic Velocity (PSV) cm/sec ----- Left CCA: 80.3 ----- Left ICA: 98.0 ----- Left ECA: 80.3 ICA/CCA ratio: 1.2 LEFT: End Diastole cm/sec ----- Left CCA: 22.2 ----- Left ICA: 41.2 ----- Left ECA: 10.9 VERTEBRALS (direction of flow): Right Vertebral: Antegrade Left Vertebral: Antegrade Rhythm: Normal IMPRESSION: No hemodynamically significant stenosis appreciated in either internal carotid artery. Criteria for Assigning % of Stenosis / Diameter reduction (Estimation based on the indirect measurements of the internal carotid artery velocities (ICA PSV). 1. Normal (no stenosis)=ICA PSV < 125 cm/s: ratio < 2.0: ICA EDV<40 cm/s. 2. Less than 50% stenosis=ICA PSV < 125 cm/s: ratio < 2.0: ICA EDV<40 cm/s. 3. 50 to 69% stenosis=ICA PSV of 125 to 230 cm/s: ration 2.0 ? 4.0: ICA EDV 40-100 cm/s. 4. Greater than 70% stenosis to near occlusion= ICA PSV > 230 cm/s: ratio > 4.0: ICA EDV > 100 cm/s. 5. Near occlusion= ICA PSV velocities may be low or undetectable: variable ratio and ICA EDV. 6. Total occlusion=unable to detect flow.
== END | disposition home or self-care (01) ==
LOC: RADUSWWP 08:21
PROVIDERS: ATTEND Family Medicine
DX: I65.29 Occlusion and stenosis of unspecified carotid artery (principal)
CPT/HCPCS: 93880

== ENCOUNTER 2019-01-26 13:10 | Emergency (ER) | payer OTHER ==
--- NOTE | 2019-01-26 14:27 | XR ---
EXAMINATION TYPE: XR ribs LT w pa chest xray DATE OF EXAM: 01/26/2019 COMPARISON: November 08, 2018 HISTORY: Pain TECHNIQUE: Single view of the chest and 5 views of the ribs are submitted. FINDINGS: Left basilar linear atelectasis and pleural thickening noted. No Evidence for pneumothorax. No evidence for focal contusion. Mediastinal structures are midline. Evaluation of the ribs fails to demonstrate evidence for displaced rib fracture or secondary sign of rib fracture. IMPRESSION: No evidence for displaced rib fracture or left-sided pneumothorax. Left basilar atelectas is and mild pleural thickening.
--- NOTE | 2019-01-26 14:48 | ED ---
Chest Pain HPI - General Chief Complaint: Chest Pain Stated Complaint: Rib pain Time Seen by Provider: 01/26/19 13:27 Source: patient, RN notes reviewed, old records reviewed Mode of arrival: ambulatory Limitations: no limitations - History of Present Illness Initial Comments: This is a 32-year-old female the ER for evaluation. This patient resents today for evaluation regarding left-sided rib pain. Patient did have traumatic injury while trying to put a been a chronic car seat, did have injury to left rib. No shortness of breath she has been doing with upper a for infection and chronic cough which is also causing her worsening pain there. Patient's help with Motrin, no fevers. No other complaints of pain or injury MD Complaint: chest pain (R rib pain) -: days(s) Onset: during rest, during exertion Pain Location: left chest Pain Radiation: none Severity: moderate Severity scale (1-10): 4 Quality: aching Consistency: constant Improves With: nothing Worsens With: nothing Context: trauma/injury Anginal Symptoms: dyspnea Other Symptoms: cough Treatments Prior to Arrival: none - Related Data Home Medications Medication Instructions Recorded Confirmed Citalopram Hydrobromide 40 mg PO QAM 10/03/17 01/26/19 [Citalopram HBr] Albuterol Sulfate [Proair Hfa] 2 puff INHALATION RT-Q6H PRN 06/08/18 01/26/19 Cetirizine HCl/Pseudoephedrine 1 tab PO Q12H PRN 06/08/18 01/26/19 [Zyrtec-D Tablet] Irbesartan/Hydrochlorothiazide 1 tab PO QAM 06/08/18 01/26/19 [Irbesartan-Hctz 300-12.5 mg Tb] L.acidoph,Paracasei, B.lactis 1 cap PO DAILY 06/08/18 01/26/19 [Probiotic] Umeclidinium Brm/Vilanterol Tr 1 puff INHALATION RT-DAILY 06/08/18 01/26/19 [Anoro Ellipta 62.5-25 Mcg INH] Omeprazole 40 mg PO QAM 07/13/18 01/26/19 Sucralfate [Carafate] 1 gm PO ACHS 07/13/18 01/26/19 Previous Rx's Medication Instructions Recorded Ondansetron Odt [Zofran Odt] 4 mg PO Q8HR PRN #10 tab 06/08/18 HYDROcodone/APAP 7.5-325MG [[place] 1 tab PO Q4H PRN 3 Days #18 tab 07/14/18 7.5-325] Allergies Allergy/AdvReac Type Severity Reaction Status Date / Time clarithromycin [From Biaxin] Allergy Severe Dyspnea Verified 01/26/19 13:26 Review of Systems ROS Statement: Those systems with pertinent positive or pertinent negative responses have been documented in the HPI. ROS Other: All systems not noted in ROS Statement are negative. Past Medical History Past Medical History: Asthma, GERD/Reflux, Hypertension Additional Past Medical History / Comment(s): frequent right ankle swelling. ABD PAIN WITH N/V History of Any Multi-Drug Resistant Organisms: None Reported Past Surgical History: Section, Hernia Repair, Hysterectomy, Orthopedic Surgery Additional Past Surgical History / Comment(s): right ankle surg Past Anesthesia/Blood Transfusion Reactions: Motion Sickness, Postoperative Nausea & Vomiting (PONV) Past Psychological History: Anxiety, Depression Smoking Status: Former smoker - Past Family History Mother Family Medical History: No Reported History General Exam Limitations: no limitations General appearance: alert, in no apparent distress Head exam: Present: atraumatic, normocephalic, normal inspection Eye exam: Present: normal appearance, PERRL, EOMI. Absent: scleral icterus, conjunctival injection, periorbital swelling ENT exam: Present: normal exam, mucous membranes moist Neck exam: Present: normal inspection. Absent: tenderness, meningismus, lymphadenopathy Respiratory exam: Present: normal lung sounds bilaterally. Absent: respiratory distress, wheezes, rales, rhonchi, stridor Cardiovascular Exam: Present: regular rate, normal rhythm, normal heart sounds. Absent: systolic murmur, diastolic murmur, rubs, gallop, clicks GI/Abdominal exam: Present: soft, normal bowel sounds. Absent: distended, tenderness, guarding, rebound, rigid Extremities exam: Present: normal inspection, full ROM, normal capillary refill. Absent: tenderness, pedal edema, joint swelling, calf tenderness Back exam: Present: normal inspection Neurological exam: Present: alert, oriented X3, CN II-XII intact Psychiatric exam: Present: normal affect, normal mood Skin exam: Present: warm, dry, intact, normal color. Absent: rash Course Vital Signs 01/26/19 13:24 Temperature 98.4 F Pulse Rate 64 Respiratory 20 Rate Blood Pressure 150/79 O2 Sat by Pulse 99 Oximetry Chest Pain MDM - MDM 53 female the ER for evaluation presents today for evaluation with regards to rib pain left rib pain x-rays negative for traumatic injury. Patient to continue take Motrin Tylenol for pain at home and can be discharged home Disposition Clinical Impression: Contusion of rib on left side Disposition: HOME SELF-CARE Condition: Good Instructions (If sedation given, give patient instructions): Costochondritis (ED), Rib Contusion (ED) Is patient prescribed a controlled substance at d/c from ED?: No Referrals: Scottie De La Cruz DO [Primary Care Provider] - 1-2 days
[2019-01-26 15:12] VITALS: BP 141/74; PULSE 56; RESP 18; TEMP 98.3
== END 2019-01-26 15:00 | disposition home or self-care (01) ==
LOC: EC 13:10
DX: S20.212A Contusion of left front wall of thorax, initial encounter (principal); J45.909 Unspecified asthma, uncomplicated; K21.9 Gastro-esophageal reflux disease without esophagitis; I10 Essential (primary) hypertension; F41.9 Anxiety disorder, unspecified; F32.9 Major depressive disorder, single episode, unspecified; Z79.899 Other long term (current) drug therapy; Z88.1 Allergy status to other antibiotic agents; Z87.891 Personal history of nicotine dependence; X58.XXXA Exposure to other specified factors, initial encounter
CPT/HCPCS: 99285

== ENCOUNTER → 2019-03-28 | Outpatient (CLI) | payer OTHER ==
--- NOTE | 2019-03-28 20:59 | CONS ---
CONSULTATION REASON FOR CONSULTATION: Sleep apnea. This patient is 53, she reports loud snoring. She reports fragmented sleep and she wakes up on multiple occasions throughout the night. She goes to bed around 9 p.m., wakes up at 6 a.m. in the morning. She has trouble waking up in the morning and she is waking up very tired and sleepy and somnolent during the day. No history of motor vehicular accident because of feeling drowsy or sleepy. The patient is known to have hypertension, acid reflux and depression and she is currently on Celexa. She has been involved in thumb sucking and this is a behavior that she has done for many years while asleep. She suckles on her thumb. She is a nose breather. Her weight has been up over the years and currently she carries a BMI of 32.0. PAST MEDICAL HISTORY: Of hypertension, acid reflux, and depression. PAST SURGICAL HISTORY: Includes cholecystectomy, torn rotator cuff, partial hysterectomy and . DRUG ALLERGIES: TO MACROBID. SOCIAL HISTORY: The patient is a ex-smoker. No history of alcohol. No history of IV drugs. FAMILY HISTORY: Negative for sleep apnea. REVIEW OF SYSTEMS: Fourteen-point review of system was done. Positive findings are mentioned above in history of present illness. PHYSICAL EXAMINATION: BP 144/76, pulse 72, respirations 16, temperature 98.4. Saturation 97% on room air. Height 5 feet 8 inches, weight is 214. BMI of 22. Neck size 16 inches. General appearance: Calm, comfortable. HEENT: Head is atraumatic, normocephalic. NECK: Supple. There is no JVD. No goiter or neck masses. LUNGS: Clear to auscultation. HEART: Sounds are regular rate and rhythm. Normal S1, S2. No S3. No murmurs. ABDOMEN: Soft, nontender. No organomegaly. EXTREMITIES: No edema. No cyanosis or clubbing. IMPRESSION: 1. Loud snoring. 2. Hypersomnia [place] score of 11. 3. Sleep fragmentation. 4. Thumb suckling, (nighttime behaviors that may promote sleep in this patient.). 5. Hypertension. 6. Acid reflux. 7. Depression. PLAN: 1. Proceed with a screening polysomnogram. 2. Encourage weight loss. 3. Implement good sleep hygiene measures. 4. We will continue to follow and make further recommendations based on results of the sleep study. MMODL / IJN: [id number] /
== END | disposition home or self-care (01) ==
LOC: SLEEP 13:15
PROVIDERS: ATTEND Internal Medicine Critical Care Medicine
DX: G47.10 Hypersomnia, unspecified (principal); R06.83 Snoring; I10 Essential (primary) hypertension; K21.9 Gastro-esophageal reflux disease without esophagitis; F32.9 Major depressive disorder, single episode, unspecified; F91.8 Other conduct disorders; Z87.891 Personal history of nicotine dependence
CPT/HCPCS: 99211

== ENCOUNTER 2019-06-03 13:54 | Emergency (ER) | payer OTHER ==
[2019-06-03 13:58] VITALS: BP 141/80; PULSE 78; RESP 16; TEMP 99.5
[2019-06-03] MEDS ORDERED: predniSONE 50 MG TAB PO STA (14:35)
--- NOTE | 2019-06-03 14:50 | ED ---
General Adult HPI - General Chief complaint: Skin/Abscess/Foreign Body Stated complaint: rash Time Seen by Provider: 06/03/19 14:05 Source: patient Mode of arrival: ambulatory Limitations: no limitations - History of Present Illness Initial comments: Patient is a 54-year-old male presenting to the emergency department with a chief complaint of a rash on her legs. Patient reports the rash started 2 days ago and has not resolved. Patient reports the rash is very itchy. Patient reports the rash is above the sock line bilaterally. Patient denies fever, nausea or vomiting. Patient denies any recent changes to her detergent or hygiene products. Patient reports she was not exposed to any insects recently. Patient is not on blood thinners. Patient does not report using any new medications. - Related Data Home Medications Medication Instructions Recorded Confirmed Citalopram Hydrobromide 40 mg PO QAM 10/03/17 01/26/19 [Citalopram HBr] Albuterol Sulfate [Proair Hfa] 2 puff INHALATION RT-Q6H PRN 06/08/18 01/26/19 Cetirizine HCl/Pseudoephedrine 1 tab PO Q12H PRN 06/08/18 01/26/19 [Zyrtec-D Tablet] Irbesartan/Hydrochlorothiazide 1 tab PO QAM 06/08/18 01/26/19 [Irbesartan-Hctz 300-12.5 mg Tb] L.acidoph,Paracasei, B.lactis 1 cap PO DAILY 06/08/18 01/26/19 [Probiotic] Umeclidinium Brm/Vilanterol Tr 1 puff INHALATION RT-DAILY 06/08/18 01/26/19 [Anoro Ellipta 62.5-25 Mcg INH] Omeprazole 40 mg PO QAM 07/13/18 01/26/19 Sucralfate [Carafate] 1 gm PO ACHS 07/13/18 01/26/19 Previous Rx's Medication Instructions Recorded Ondansetron Odt [Zofran Odt] 4 mg PO Q8HR PRN #10 tab 06/08/18 HYDROcodone/APAP 7.5-325MG [[place] 1 tab PO Q4H PRN 3 Days #18 tab 07/14/18 7.5-325] predniSONE 10 mg PO DAILY #3 tab 06/03/19 Allergies Allergy/AdvReac Type Severity Reaction Status Date / Time clarithromycin [From Biaxin] Allergy Severe Dyspnea Verified 06/03/19 13:58 Review of Systems ROS Statement: Those systems with pertinent positive or pertinent negative responses have been documented in the HPI. ROS Other: All systems not noted in ROS Statement are negative. Past Medical History Past Medical History: Asthma, GERD/Reflux, Hypertension Additional Past Medical History / Comment(s): frequent right ankle swelling. ABD PAIN WITH N/V History of Any Multi-Drug Resistant Organisms: None Reported Past Surgical History: Section, Hernia Repair, Hysterectomy, Orthopedic Surgery Additional Past Surgical History / Comment(s): right ankle surg Past Anesthesia/Blood Transfusion Reactions: Motion Sickness, Postoperative Nausea & Vomiting (PONV) Past Psychological History: Anxiety, Depression Smoking Status: Former smoker - Past Family History Mother Family Medical History: No Reported History General Exam Limitations: no limitations General appearance: alert, in no apparent distress Head exam: Present: atraumatic, normocephalic, normal inspection Eye exam: Present: normal appearance, PERRL, EOMI Pupils: Present: normal accommodation ENT exam: Present: normal exam, mucous membranes moist, normal external ear exam Neck exam: Present: normal inspection, full ROM Respiratory exam: Present: normal lung sounds bilaterally Cardiovascular Exam: Present: regular rate, normal rhythm, normal heart sounds GI/Abdominal exam: Present: soft, normal bowel sounds Extremities exam: Present: normal inspection, full ROM Back exam: Present: normal inspection, full ROM Neurological exam: Present: alert, oriented X3 Psychiatric exam: Present: normal affect, normal mood Skin exam: Present: warm, intact, normal color, rash (Petechial rash on bilateral lower legs that appears only above the sock line.) Course Vital Signs 06/03/19 13:56 Temperature 99.5 F Pulse Rate 78 Respiratory 16 Rate Blood Pressure 141/80 O2 Sat by Pulse 97 Oximetry Medical Decision Making - Medical Decision Making Patient is a 54-year-old male presenting to emergency Department with a chief complaint of a rash on her feet. Based on physical examination the rash appears to be vasculitis possibly due to wearing tight socks and standing for prolonged periods of time. I suspect the itchiness to resolve of mild edema collecting above the sock line. Patient advised to follow-up with primary care. Strict return parameters were thoroughly discussed patient was understanding and agreeable. Case discussed with physician. Disposition Clinical Impression: Vasculitis limited to the skin, unspecified Disposition: HOME SELF-CARE Condition: Stable Instructions (If sedation given, give patient instructions): [place] (ED) Additional Instructions: Please take prescribed medication as directed. Please follow up with primary care. Please return to emergency department if symptoms worsen. Prescriptions: predniSONE 10 mg PO DAILY #3 tab Is patient prescribed a controlled substance at d/c from ED?: No Referrals: Scottie De La Cruz DO [Primary Care Provider] - 1-2 days Time of Disposition: 14:50
== END 2019-06-03 14:55 | disposition home or self-care (01) ==
LOC: EC 13:54
DX: L95.9 Vasculitis limited to the skin, unspecified (principal); J45.909 Unspecified asthma, uncomplicated; K21.9 Gastro-esophageal reflux disease without esophagitis; I10 Essential (primary) hypertension; F32.9 Major depressive disorder, single episode, unspecified; F41.9 Anxiety disorder, unspecified; Z87.891 Personal history of nicotine dependence; Z88.1 Allergy status to other antibiotic agents; Z79.899 Other long term (current) drug therapy
CPT/HCPCS: 99282; J7512

== ENCOUNTER 2019-08-26 08:04 | Emergency (ER) | payer OTHER ==
[2019-08-26 08:10] VITALS: BP 130/70; PULSE 68; RESP 18; TEMP 98.3
[2019-08-26] MEDS ORDERED: IBUPROFEN 600 MG STARTER PACK 4 TAB BTL PO STA (08:18)
--- NOTE | 2019-08-26 08:27 | ED ---
Burn/Smoke HPI - General Chief complaint: Burn/Smoke Inhalation Stated complaint: [facility] - burn rt hand Time Seen by Provider: 08/26/19 08:11 Source: patient, RN notes reviewed, old records reviewed Mode of arrival: ambulatory Limitations: no limitations - History of Present Illness Initial comments: Patient is a 54-year-old female, presents emergency room stay for a burn over her right wrist and the dorsum of her right third fourth and fifth digit after some grease splattered and injured her hand. Patient reports she is right- handed. She denies any palmar solorio. Patient states she has full range of motion of her fingers and sensation distally. She does complain of some pain over the dorsum of the third digit mostly. Patient states that she is up-to-date on tetanus vaccine. - Related Data Home Medications Medication Instructions Recorded Confirmed Citalopram Hydrobromide 40 mg PO QAM 10/03/17 01/26/19 [Citalopram HBr] Albuterol Sulfate [Proair Hfa] 2 puff INHALATION RT-Q6H PRN 06/08/18 01/26/19 Cetirizine HCl/Pseudoephedrine 1 tab PO Q12H PRN 06/08/18 01/26/19 [Zyrtec-D Tablet] Irbesartan/Hydrochlorothiazide 1 tab PO QAM 06/08/18 01/26/19 [Irbesartan-Hctz 300-12.5 mg Tb] L.acidoph,Paracasei, B.lactis 1 cap PO DAILY 06/08/18 01/26/19 [Probiotic] Umeclidinium Brm/Vilanterol Tr 1 puff INHALATION RT-DAILY 06/08/18 01/26/19 [Anoro Ellipta 62.5-25 Mcg INH] Omeprazole 40 mg PO QAM 07/13/18 01/26/19 Sucralfate [Carafate] 1 gm PO ACHS 07/13/18 01/26/19 Previous Rx's Medication Instructions Recorded Ondansetron Odt [Zofran Odt] 4 mg PO Q8HR PRN #10 tab 06/08/18 HYDROcodone/APAP 7.5-325MG [[place] 1 tab PO Q4H PRN 3 Days #18 tab 07/14/18 7.5-325] predniSONE 10 mg PO DAILY #3 tab 06/03/19 Mupirocin 2% Oint [Bactroban 2% 1 applic TOPICAL TID #60 gm 08/26/19 Oint] Allergies Allergy/AdvReac Type Severity Reaction Status Date / Time clarithromycin [From Biaxin] Allergy Severe Dyspnea Verified 08/26/19 08:06 Review of Systems ROS Statement: Those systems with pertinent positive or pertinent negative responses have been documented in the HPI. ROS Other: All systems not noted in ROS Statement are negative. Past Medical History Past Medical History: Asthma, GERD/Reflux, Hypertension Additional Past Medical History / Comment(s): frequent right ankle swelling. ABD PAIN WITH N/V History of Any Multi-Drug Resistant Organisms: None Reported Past Surgical History: Section, Hernia Repair, Hysterectomy, Orthopedic Surgery Additional Past Surgical History / Comment(s): right ankle surg Past Anesthesia/Blood Transfusion Reactions: Motion Sickness, Postoperative Nausea & Vomiting (PONV) Past Psychological History: Anxiety, Depression Smoking Status: Former smoker Past Alcohol Use History: None Reported Past Drug Use History: None Reported - Past Family History Mother Family Medical History: No Reported History General Exam - General Exam Comments Initial Comments: This patient's a 54-year-old female. No distress. Limitations: no limitations General appearance: alert, in no apparent distress Head exam: Present: atraumatic, normocephalic, normal inspection Eye exam: Present: normal appearance, PERRL, EOMI. Absent: scleral icterus, conjunctival injection, periorbital swelling ENT exam: Present: normal exam, mucous membranes moist Neck exam: Present: normal inspection. Absent: tenderness, meningismus, lymphadenopathy Respiratory exam: Present: normal lung sounds bilaterally. Absent: respiratory distress, wheezes, rales, rhonchi, stridor Cardiovascular Exam: Present: regular rate, normal rhythm, normal heart sounds. Absent: systolic murmur, diastolic murmur, rubs, gallop, clicks GI/Abdominal exam: Present: soft, normal bowel sounds. Absent: distended, tenderness, guarding, rebound, rigid Extremities exam: Present: full ROM, other (partial 1st degree burn over right 3-5 digit and dorsum of r wrist. Patient has full ROM. ) Back exam: Present: normal inspection Neurological exam: Present: alert, oriented X3, CN II-XII intact Psychiatric exam: Present: normal affect, normal mood Skin exam: Present: warm, dry, intact, normal color Course Vital Signs 08/26/19 08:06 Temperature 98.3 F Pulse Rate 68 Respiratory 18 Rate Blood Pressure 130/70 O2 Sat by Pulse 99 Oximetry Medical Decision Making - Medical Decision Making Patient is a 54-year-old female with first-degree burn over the right third fourth and fifth digit and wrist. A splatter burn from grease while at work. Patient has full range of motion. Discussed if her cerebrum. He can put bacitracin and wet-to-dry dressings. Discussed Motrin and Tylenol. Discussed monitoring for any signs of infection or severe blistering. Disposition Clinical Impression: First degree burn of hand Disposition: HOME SELF-CARE Condition: Good Instructions (If sedation given, give patient instructions): Superficial Burn (ED) Additional Instructions: Please use medication as discussed. Please follow up with family doctor if symptoms have not improved over the next two days. Please return to the emergency room if your symptoms increase or worsen or for any other concerns. Prescriptions: Mupirocin 2% Oint [Bactroban 2% Oint] 1 applic TOPICAL TID #60 gm Is patient prescribed a controlled substance at d/c from ED?: No Referrals: Scottie De La Cruz DO [Primary Care Provider] - 1-2 days Time of Disposition: 08:27
== END 2019-08-26 08:40 | disposition home or self-care (01) ==
LOC: EC 08:04
DX: T23.191A Burn of first degree of multiple sites of right wrist and hand, initial encounter (principal); J45.909 Unspecified asthma, uncomplicated; K21.9 Gastro-esophageal reflux disease without esophagitis; I10 Essential (primary) hypertension; F32.9 Major depressive disorder, single episode, unspecified; F41.9 Anxiety disorder, unspecified; Z87.891 Personal history of nicotine dependence; Z88.1 Allergy status to other antibiotic agents; Z79.899 Other long term (current) drug therapy; X10.2XXA Contact with fats and cooking oils, initial encounter; Y92.69 Other specified industrial and construction area as the place of occurrence of the external cause; Y99.0 Civilian activity done for income or pay
CPT/HCPCS: 99283

== ENCOUNTER → 2019-09-12 | Outpatient (CLI) | payer OTHER ==
--- NOTE | 2019-09-12 13:14 | PN ---
PROGRESS NOTE Mera is 54 and coming to see me for followup regarding her obstructive sleep apnea. The patient is doing extremely well. She has severe CLAUS with an AHI of 36 and she is currently being treated with a CPAP pressure of 12 cm of water. This is her compliancy check and the first evaluation after she was given her CPAP machine. She is doing great. Her only issue is the leak around the mask which is a DreamWear full face mask. I checked the compliance data and the patient is able to approach 6.8 hours of CPAP use per night and her CPAP use for more than 4 hours is 26 out of 30. The leak is 66 liters per minute. An AHI is down to 2.3. As such, despite her leak she is well treated and she has been feeling better. REVIEW OF SYSTEMS: Fourteen-point review of system was done. Negative other than things mentioned above. Her snoring has subsided and resolved. She is a mouth breather. She is using a full- face mask. Blood pressure is under good control. No nighttime chest pain, shortness of breath or heartburn. No major hypersomnia or sleepiness during the day. Her [place] score is still elevated despite some subjective improvement that was reported today by the patient. PHYSICAL EXAMINATION: VITAL SIGNS: BP is 138/72, pulse 72, respirations 16, temperature is 97.9, saturation 95% on room air. Weight was 232. GENERAL APPEARANCE: Calm, comfortable. HEAD: Atraumatic. Normocephalic. NECK: Supple. There is no JVD. There is no goiter or neck mass. LUNGS: Clear to auscultation. HEART: Heart sounds regular rate and rhythm. Normal S1, S2. No S3, S4. No murmurs. ABDOMEN: Soft, nontender. No organomegaly. EXTREMITIES: No edema. No cyanosis or clubbing. NEUROLOGICALLY: Awake and alert. There is no focal neurological deficit. PSYCHIATRIC: Negative for anxiety and depression. IMPRESSION: 1. Severe symptomatic obstructive sleep apnea AHI of 36, currently currently on CPAP pressure of 12 cm of water. 2. Hypersomnia, improving. 3. Increased leak around the mask. PLAN: 1. Encourage weight loss. 2. Switch this patient to a small size DreamWear mask which should improve her mask fit. 3. Implement good sleep hygiene measures. 4. Compliance data was checked. 5. Treatment is successful. 6. We will continue to follow and see the patient back in my office in a year's time and followup earlier if needed. MMODL / IJN: [id number] / ALAN
== END ==
LOC: SLEEP 10:56
PROVIDERS: ATTEND Internal Medicine Critical Care Medicine
DX: G47.33 Obstructive sleep apnea (adult) (pediatric) (principal); Z99.89 Dependence on other enabling machines and devices

== ENCOUNTER → 2019-09-14 | Outpatient (CLI) | payer OTHER ==
--- NOTE | 2019-09-14 14:32 | XR ---
EXAMINATION TYPE: XR shoulder complete RT DATE OF EXAM: 09/14/2019 CLINICAL HISTORY: pain TECHNIQUE: Three views of the right shoulder are obtained. COMPARISON: None FINDINGS: There is no acute fracture/dislocation evident. The acromioclavicular and glenohumeral franklin int spaces appear within normal limits. The visualized ribs are intact and unremarkable. IMPRESSION: 1. There is no acute fracture or dislocation. ICD 10 NO FRACTURE, INITIAL EVALUATION
== END | disposition home or self-care (01) ==
LOC: RADXRMAIN 14:10
PROVIDERS: ATTEND Family Medicine
DX: M25.511 Pain in right shoulder (principal)

== ENCOUNTER → 2019-11-27 | Outpatient (CLI) | payer OTHER ==
--- NOTE | 2019-11-27 13:03 | XR ---
EXAMINATION TYPE: XR chest 2V DATE OF EXAM: 11/27/2019 COMPARISON: 01/18/2019 HISTORY: Pneumonia. Shortness of breath. TECHNIQUE: Frontal and lateral views of the chest are obtained. FINDINGS: Patchy opacity at the left lung base is chronic and seen on the prior. Remainder the lungs are clear. Cardiomediastinal silhouette is within normal limits. Osseous structures are grossly inta ct. Minimal degenerative disc disease of the spine. IMPRESSION: Chronic left basilar opacity as seen on the prior of 2018. This likely represents chroni c atelectasis. No new focal consolidation.
== END | disposition home or self-care (01) ==
LOC: RADXRMAIN 12:20
PROVIDERS: ATTEND Family Medicine
DX: J98.4 Other disorders of lung (principal)
CPT/HCPCS: 71046

== ENCOUNTER → 2019-12-12 | Outpatient (CLI) | payer OTHER ==
--- NOTE | 2019-12-12 22:30 | PN ---
PROGRESS NOTE DATE OF SERVICE: 12/12/2019 This is a very pleasant 54-year-old female patient who is seen today at the sleep center for CPAP compliance evaluation. She was diagnosed as having very severe obstructive sleep apnea with an AHI of 36, which was worse in the supine position. Her [place] score was 11 with hypersomnia. She was recommended CPAP with initial pressure of 12 cm of water with a C-Flex of 3. She was fitted with a medium size DreamWear full face mask and encouraged regarding weight loss. She is seen today in followup. She is doing fairly well. She is having some issues with the mask and is frequently needing to adjust it. Compliance evaluation revealed 16 out of 30 days use with 13 out of 30 at 4+ hours averaging about 6 hours. There was a leak of 55 L/minute. Her AHI is down to 3.2, however. Total AHI is 2.2 with central AHI of 0.5. She feels she is sleeping better and is feeling less daytime sleepiness. PHYSICAL EXAM: She is alert and oriented, in no acute distress. Vital signs revealed blood pressure 134/73, heart rate 76, respirations 16, temperature is 98. She is 95% O2 saturation on room air. She is 5 feet 9 inches tall with a weight of 230 and a BMI of 33.9. However, her [place] Sleepiness Scale score remains elevated at 19. Her head is normocephalic. Sclerae anicteric. There is crowding of the posterior pharynx. Her neck is supple. Trachea midline. Her lungs are clear anterior and posteriorly. Her heart is regular S1, S2. Abdomen is obese, soft, nontender. Bowel sounds are present. There is no significant peripheral edema. No clubbing. No cyanosis. Peripheral pulses are intact. CURRENT MEDICATIONS: Simvastatin 20 mg daily, Ventolin HFA p.r.n., citalopram 40 mg daily, losartan 50 mg daily, simvastatin 20 mg at bedtime, hydrochlorothiazide 25 mg daily, omeprazole 40 mg daily. IMPRESSION: 1. Severe obstructive sleep apnea with an AHI of 36 with successful CPAP titration and the AHI improved to 3.2. 2. Hypersomnia with [place] score of 19 secondary to obstructive sleep apnea. 3. Hypertension. 4. Gastroesophageal reflux disease. 5. Depression. 6. Hyperlipidemia. PLAN: The patient's case was reviewed and discussed with Dr. Dailey. We have adjusted her medium-sized DreamWear full face mask and it is working better for her here in the office. She is educated regarding its use and how to adjust the straps to fit more comfortably. She will continue to utilize this and continue her CPAP at 12 cm of water with a C-Flex of 3. If she continues to have any issues she will return to that clinic for further evaluation and possible other types of sleepwear for her CPAP. We need to improve on the leak score. Her AHI remains at 3.2. She verbalizes understanding and is agreeable to the plan. I, the cosigning physician, performed a history and physical examination on the patient. Lungs are clear. Maintain O2 saturation at 95% on room air. I discussed the assessment and plan of care with my nurse practitioner, Danika Morris. I attest to the above note as dictated by her. MMALAINA / JOANN: [id number] /
== END | disposition home or self-care (01) ==
LOC: SLEEP 13:20
PROVIDERS: ATTEND Internal Medicine Critical Care Medicine
DX: G47.33 Obstructive sleep apnea (adult) (pediatric) (principal); I10 Essential (primary) hypertension; K21.9 Gastro-esophageal reflux disease without esophagitis; F32.9 Major depressive disorder, single episode, unspecified; E78.5 Hyperlipidemia, unspecified; Z79.899 Other long term (current) drug therapy; Z99.89 Dependence on other enabling machines and devices

== ENCOUNTER → 2020-05-02 | Outpatient (CLI) | payer OTHER ==
--- NOTE | 2020-05-03 09:43 | MM ---
Reason for exam: screening (asymptomatic). Last mammogram was performed 2 years and 3 months ago. History: Patient history of other cancer. Family history of breast cancer in aunt. Excisional biopsy of the left breast. Excisional biopsy of the right breast. Physical Findings: A clinical breast exam by your physician is recommended on an annual basis and results should be correlated with mammographic findings. MG 3D Screening Mammo W/Cad Bilateral CC and MLO view(s) were taken. Prior study comparison: February 08, 2018, bilateral MG 3d screening mammo w/cad. August 30, 2015, mammogram. The breast tissue is heterogeneously dense. This may lower the sensitivity of mammography. Stable oil cyst calcifications, some are new. Stable central punctate calcifications on the left. Asymmetric densities on the right incompletely disperse on 3D. ASSESSMENT: Incomplete: need additional imaging evaluation, BI-RAD 0 RECOMMENDATION: Special view mammogram of the right breast. (3D) If lesion persists on supplemental views, image directed ultrasound is recommended. [facility] will attempt to contact patient to return for supplemental views and ultrasound if indicated.
== END | disposition home or self-care (01) ==
LOC: RADMAMWWP 14:12
PROVIDERS: ATTEND Family Medicine
DX: Z12.31 Encounter for screening mammogram for malignant neoplasm of breast (principal)
CPT/HCPCS: 77063; 77067

== ENCOUNTER 2020-05-07 23:39 | Emergency (ER) | payer OTHER ==
--- NOTE | 2020-05-08 00:56 | US ---
EXAMINATION TYPE: US venous doppler duplex LE RT DATE OF EXAM: 05/08/2020 12:09 AM COMPARISON: NONE CLINICAL HISTORY: calf pain. Right calf pain x 1 week. No hx of DVT. Patient does not take blood thin ners. SIDE PERFORMED: Right TECHNIQUE: The lower extremity deep venous system is examined utilizing real time linear array sonog adilia with graded compression, doppler sonography and color-flow sonography. VESSELS IMAGED: External Iliac Vein (EIV) Common Femoral Vein Deep Femoral Vein Greater Saphenous Vein * Femoral Vein Popliteal Vein Small Saphenous Vein * Proximal Calf Veins (* superficial vessels) Right Leg: No evidence of DVT in veins imaged at this time from prox calf veins to EIV. IMPRESSION: No sign of deep vein thrombosis in the right leg.
[2020-05-08 01:27] LABS: ALT 33 U/L (4-34); AST 29 U/L (14-36); African American GFR (CKD) >90 (>60 ml/min/1.73 sqM); Albumin 3.9 g/dL (3.5-5.0); Alkaline Phosphatase 135 U/L (38-126); Anion Gap 7 mmol/L; Blood Urea Nitrogen 14 mg/dL (7-17); Carbon Dioxide 28 mmol/L (22-30); Chloride 101 mmol/L (98-107); Glucose 111 mg/dL (74-99); Non-African American GFR(CKD) >90 (>60 ml/min/1.73 sqM); Potassium 3.6 mmol/L (3.5-5.1); Sodium 136 mmol/L (137-145); Total Bilirubin 0.5 mg/dL (0.2-1.3); Total Protein 6.2 g/dL (6.3-8.2)
--- NOTE | 2020-05-08 01:29 | ED ---
Extremity Problem HPI - General Chief complaint: Extremity Problem,Nontraumatic Stated complaint: Rt leg pain Time Seen by Provider: 05/07/20 23:48 Source: patient Mode of arrival: ambulatory Limitations: no limitations - History of Present Illness Initial comments: 54-year-old female presenting for right calf pains patient states the past 2 days she has had right calf pain. Patient denies any coolness pallor loss of sensation or weakness of the extremity. Denies any low back pain. Patient denies any direct injury trauma or falls. Denies any redness or breaks the skin. Patient denies chest pain, SOB or history of DVT/PE/clotting disorders. Patient dneies known peripheral vascular disease. Patient has no additional complaints. Patient is ambulatory and does not appear in acute distress on arrival. - Related Data Home Medications Medication Instructions Recorded Confirmed Citalopram Hydrobromide 40 mg PO QAM 10/03/17 01/26/19 [Citalopram HBr] Albuterol Sulfate [Proair Hfa] 2 puff INHALATION RT-Q6H PRN 06/08/18 01/26/19 Cetirizine HCl/Pseudoephedrine 1 tab PO Q12H PRN 06/08/18 01/26/19 [Zyrtec-D Tablet] Irbesartan/Hydrochlorothiazide 1 tab PO QAM 06/08/18 01/26/19 [Irbesartan-Hctz 300-12.5 mg Tb] L.acidoph,Paracasei, B.lactis 1 cap PO DAILY 06/08/18 01/26/19 [Probiotic] Umeclidinium Brm/Vilanterol Tr 1 puff INHALATION RT-DAILY 06/08/18 01/26/19 [Anoro Ellipta 62.5-25 Mcg INH] Omeprazole 40 mg PO QAM 07/13/18 01/26/19 Sucralfate [Carafate] 1 gm PO ACHS 07/13/18 01/26/19 Previous Rx's Medication Instructions Recorded Ondansetron Odt [Zofran Odt] 4 mg PO Q8HR PRN #10 tab 06/08/18 HYDROcodone/APAP 7.5-325MG [[place] 1 tab PO Q4H PRN 3 Days #18 tab 07/14/18 7.5-325] predniSONE 10 mg PO DAILY #3 tab 06/03/19 Mupirocin 2% Oint [Bactroban 2% 1 applic TOPICAL TID #60 gm 08/26/19 Oint] Allergies Allergy/AdvReac Type Severity Reaction Status Date / Time clarithromycin [From Biaxin] Allergy Severe Dyspnea Verified 05/07/20 23:48 Review of Systems ROS Statement: Those systems with pertinent positive or pertinent negative responses have been documented in the HPI. ROS Other: All systems not noted in ROS Statement are negative. Past Medical History Past Medical History: Asthma, GERD/Reflux, Hypertension Additional Past Medical History / Comment(s): frequent right ankle swelling. ABD PAIN WITH N/V. emphysema History of Any Multi-Drug Resistant Organisms: None Reported Past Surgical History: Section, Hernia Repair, Hysterectomy, Orthopedic Surgery Additional Past Surgical History / Comment(s): right ankle surg Past Anesthesia/Blood Transfusion Reactions: Motion Sickness, Postoperative Nausea & Vomiting (PONV) Past Psychological History: Anxiety, Depression Smoking Status: Former smoker Past Alcohol Use History: None Reported Past Drug Use History: None Reported - Past Family History Mother Family Medical History: No Reported History General Exam - General Exam Comments Initial Comments: General: The patient is awake and alert, in no distress Eye: Pupils are equal, round and reactive to light, extra-ocular movements are intact. No nystagmus. There is normal conjunctiva bilaterally. No signs of icterus. Cardiovascular: There is a regular rate and rhythm. No murmur, rub or gallop is appreciated. Respiratory: Lungs are clear to auscultation, respirations are non-labored, breath sounds are equal. No wheezes, stridor, rales, or rhonchi. Musculoskeletal: Normal ROM, no tenderness. Strength 5/5. Sensation intact. + DP pulses equal bilaterally 2+. No LE edema appreciated.Leg appear symmetrical. Patient has tenderness to palpation of the eright calf. NO masses. No lesions noted. Neurological: A&O x 3. CN II-XII intact grossly, There are no obvious motor or sensory deficits. Coordination appears grossly intact. Speech is normal. Skin: Skin is warm and dry and no rashes or lesions are noted. Psychiatric: Cooperative, appropriate mood & affect, normal judgment. Limitations: no limitations Course Vital Signs 05/07/20 23:46 Temperature 98.7 F Pulse Rate 72 Respiratory 18 Rate Blood Pressure 151/80 O2 Sat by Pulse 95 Oximetry Medical Decision Making - Medical Decision Making 54yo female presenting for right calf pain. No injury. No redness, no signif icant changes in comparison to two legs. no edema. Patient achillles appears intact. No masses. Patient US (-) for DVT. Patient pulses normal strong b/l. No coolness or pallor b/l Patient evaluated by attending Dr. Tay who is agreeable to discharge with PCP f/u. CMP no significant derrangement. Patient is agreeable to outpatient symptomatic treatment and f/u. - Lab Data Result diagrams: 05/08/20 01:04 Lab Results 05/08/20 Range/Units 01:04 Sodium 136 L (137-145) mmol/L Potassium 3.6 (3.5-5.1) mmol/L Chloride 101 (98-107) mmol/L Carbon Dioxide 28 (22-30) mmol/L Anion Gap 7 mmol/L BUN 14 (7-17) mg/dL Creatinine 0.67 (0.52-1.04) mg/dL Est GFR (CKD-EPI)AfAm >90 (>60 ml/min/1.73 sqM) Est GFR (CKD-EPI)NonAf >90 (>60 ml/min/1.73 sqM) Glucose 111 H (74-99) mg/dL Calcium 9.0 (8.4-10.2) mg/dL Total Bilirubin 0.5 (0.2-1.3) mg/dL AST 29 (14-36) U/L ALT 33 (4-34) U/L Alkaline Phosphatase 135 H (38-126) U/L Total Protein 6.2 L (6.3-8.2) g/dL Albumin 3.9 (3.5-5.0) g/dL Disposition Clinical Impression: Calf pain Disposition: HOME SELF-CARE Condition: Good Instructions (If sedation given, give patient instructions): Leg Pain (ED) Additional Instructions: Please use medication as discussed. Please follow-up with family doctor in the next 2 days.. Please return to emergency room if the symptoms increase or worsen or for any other concerns. Is patient prescribed a controlled substance at d/c from ED?: No Referrals: Scottie De La Cruz DO [Primary Care Provider] - 1-2 days Time of Disposition: 01:28
[2020-05-08 02:12] VITALS: BP 141/77; PULSE 69; RESP 17; TEMP 98.6
== END 2020-05-08 02:11 | disposition home or self-care (01) ==
LOC: EC 23:39
DX: M79.661 Pain in right lower leg (principal); J45.909 Unspecified asthma, uncomplicated; K21.9 Gastro-esophageal reflux disease without esophagitis; I10 Essential (primary) hypertension; F41.9 Anxiety disorder, unspecified; F32.9 Major depressive disorder, single episode, unspecified; Z87.891 Personal history of nicotine dependence; Z79.899 Other long term (current) drug therapy; Z88.1 Allergy status to other antibiotic agents
CPT/HCPCS: 36415; 80053; 99284

== ENCOUNTER → 2020-05-16 | Outpatient (CLI) | payer OTHER ==
--- NOTE | 2020-05-17 08:38 | MM ---
Reason for exam: additional evaluation requested from abnormal screening. Last mammogram was performed less than 1 month ago. History: Patient history of other cancer. Family history of breast cancer in aunt. Excisional biopsy of the left breast. Excisional biopsy of the right breast. Physical Findings: Nurse did not find any significant physical abnormalities on exam. MG 3D Work Up W/Cad RT Spot compression CC, spot compression MLO, and LM view(s) were taken of the right breast. Prior study comparison: May 02, 2020, bilateral MG 3d screening mammo w/cad. February 08, 2018, bilateral MG 3d screening mammo w/cad. The breast tissue is heterogeneously dense. This may lower the sensitivity of mammography. There is no discrete abnormality. These results were verbally communicated with the patient and result sheet given to the patient on 05/16/20. ASSESSMENT: Negative, BI-RAD 1 RECOMMENDATION: Return to routine screening mammogram schedule for both breasts.
== END | disposition home or self-care (01) ==
LOC: RADMAMWWP 14:57
PROVIDERS: ATTEND Family Medicine
DX: R92.8 Other abnormal and inconclusive findings on diagnostic imaging of breast (principal)
CPT/HCPCS: 77065; G0279; 77061

== ENCOUNTER 2020-06-05 10:40 | Observation (INO) | payer OTHER ==
[2020-06-05] MEDS ORDERED: SODIUM CHLORIDE 0.9% 1,000 ML IV STA (11:00)
[2020-06-05] MEDS ORDERED: IPRATROPIUM-ALBUTEROL 3 ML NEB INHALATION STA (11:03)
--- NOTE | 2020-06-05 11:03 | ED ---
SOB HPI - General Chief Complaint: Shortness of Breath Stated Complaint: SOB, cough Time Seen by Provider: 06/05/20 10:48 Source: patient Mode of arrival: ambulatory Limitations: no limitations - History of Present Illness Initial Comments: Patient is a 55-year-old female with history of emphysema presenting to the emergency department with a chief complaint of shortness of breath, sore throat and runny nose. Patient states initially symptoms began with a sore throat and some sinus congestion approximately one week ago. She states there has been a gradual increase in severity of the past week. Patient does report taking [id number] antihistamines and Tylenol with minimal improvement in her symptoms. Patient reports a few days after the onset of symptoms, she developed a nonproductive cough and shortness of breath. Patient reports using her inhaled steroids daily along with albuterol with no significant improvement in symptoms. She denies any chest pain, back pain, nausea, vomiting. She does report chills but no fevers at home. - Related Data Home Medications Medication Instructions Recorded Confirmed Citalopram Hydrobromide 40 mg PO QAM 10/03/17 06/05/20 [Citalopram HBr] Albuterol Sulfate [Proair Hfa] 2 puff INHALATION RT-QID PRN 06/08/18 06/05/20 Biotin 5,000 mcg PO DAILY 06/05/20 06/05/20 Fluticasone/Salmeterol 1 puff INHALATION RT-DAILY 06/05/20 06/05/20 [Fluticasone-Salmeterol 232-14] Furosemide [Lasix] 20 mg PO BID 06/05/20 06/05/20 Ketobooster Vitamin 1 cap PO DAILY 06/05/20 06/05/20 Ketofit Vitamin 1 cap PO DAILY 06/05/20 06/05/20 Losartan Potassium 50 mg PO DAILY 06/05/20 06/05/20 Multivitamins, Thera [Multivitamin 1 tab PO DAILY 06/05/20 06/05/20 (formulary)] Omeprazole 20 mg PO DAILY 06/05/20 06/05/20 Simvastatin [Zocor] 20 mg PO HS 06/05/20 06/05/20 Umeclidinium [place] [Incruse 1 puff INHALATION RT-DAILY 08/05/20 08/05/20 Ellipta] hydroCHLOROthiazide [Hydrodiuril] 25 mg PO DAILY 06/05/20 06/05/20 Previous Rx's Medication Instructions Recorded Amoxicillin/Potassium Clav 1 tab PO Q12HR #20 tab 06/05/20 [Augmentin 875-125 Tablet] Allergies Allergy/AdvReac Type Severity Reaction Status Date / Time clarithromycin [From Biaxin] Allergy Severe Dyspnea Verified 06/05/20 12:00 Review of Systems ROS Statement: Those systems with pertinent positive or pertinent negative responses have been documented in the HPI. ROS Other: All systems not noted in ROS Statement are negative. Past Medical History Past Medical History: Asthma, GERD/Reflux, Hypertension Additional Past Medical History / Comment(s): frequent right ankle swelling, emphysema History of Any Multi-Drug Resistant Organisms: None Reported Past Surgical History: Section, Hernia Repair, Hysterectomy, Orthopedic Surgery Additional Past Surgical History / Comment(s): right ankle surg Past Anesthesia/Blood Transfusion Reactions: Motion Sickness, Postoperative Nausea & Vomiting (PONV) Past Psychological History: Anxiety, Depression Smoking Status: Never smoker Past Alcohol Use History: None Reported Past Drug Use History: None Reported - Past Family History Mother Family Medical History: No Reported History General Exam Limitations: no limitations General appearance: alert, in no apparent distress, obese Head exam: Present: atraumatic, normocephalic, normal inspection Eye exam: Present: normal appearance, PERRL, EOMI Pupils: Present: normal accommodation ENT exam: Present: normal exam, normal oropharynx, mucous membranes moist, TM's normal bilaterally (Hearing aids bilaterally), normal external ear exam Neck exam: Present: normal inspection, full ROM. Absent: tenderness Respiratory exam: Present: prolonged expiratory (Course breath sounds bilaterally). Absent: respiratory distress Cardiovascular Exam: Present: regular rate, normal rhythm, normal heart sounds Extremities exam: Present: normal inspection, full ROM, normal capillary refill, other (+2 ulnar and radial pulses bilateral.) Back exam: Present: normal inspection, full ROM. Absent: tenderness Neurological exam: Present: alert, oriented X3, CN II-XII intact, normal gait Psychiatric exam: Present: normal affect, normal mood Skin exam: Present: warm, dry, intact, normal color Course Vital Signs 06/05/20 06/05/20 06/05/20 10:43 11:13 11:18 Temperature 99.3 F Pulse Rate 90 96 Respiratory 18 22 Rate Blood Pressure 134/80 O2 Sat by Pulse 99 Oximetry 06/05/20 06/05/20 11:25 12:23 Temperature 100.7 F H Pulse Rate 90 72 Respiratory 18 Rate Blood Pressure 132/64 O2 Sat by Pulse 96 Oximetry Medical Decision Making - Medical Decision Making Patient is a 55 year old female presenting to the emergency department with a chief complaint of shortness of breath. Patient does have history of emphysema and is a former smoker. On exam patient did have bilateral coarse breathing but no signs of wheezing. Patient was not in any respiratory distress. Cough with sputum production along with sinus congestion and sore throat. ENT examination unremarkable. Patient was given a DuoNeb treatment and started on IV steroids. Patient also given antibiotics. X-ray reveals subsegmental basilar atelectasis. Covid testing pending. D-dimer negative. CBC unremarkable. Patient is hypokalemic at 3.4. k-dur 10 given. Patient will be admitted for further medical management. Case discussed with admitting is Dr tinsley. - Lab Data Result diagrams: 06/05/20 11:17 06/05/20 11:17 Lab Results 06/05/20 06/05/20 06/05/20 Range/Units 11:17 11:17 11:17 WBC 10.0 (3.8-10.6) k/uL RBC 5.05 (3.80-5.40) m/uL Hgb 13.5 (11.4-16.0) gm/dL Hct 42.3 (34.0-46.0) % MCV 83.7 (80.0-100.0) fL MCH 26.7 (25.0-35.0) pg MCHC 31.9 (31.0-37.0) g/dL RDW 14.7 (11.5-15.5) % Plt Count 244 (150-450) k/uL Neutrophils % 82 % Lymphocytes % 10 % Monocytes % 6 % Eosinophils % 1 % Basophils % 1 % Neutrophils # 8.2 H (1.3-7.7) k/uL Lymphocytes # 1.0 (1.0-4.8) k/uL Monocytes # 0.6 (0-1.0) k/uL Eosinophils # 0.1 (0-0.7) k/uL Basophils # 0.1 (0-0.2) k/uL D-Dimer 0.34 (<0.60) mg/L FEU Sodium 136 L (137-145) mmol/L Potassium 3.4 L (3.5-5.1) mmol/L Chloride 101 (98-107) mmol/L Carbon Dioxide 26 (22-30) mmol/L Anion Gap 9 mmol/L BUN 11 (7-17) mg/dL Creatinine 0.56 (0.52-1.04) mg/dL Est GFR (CKD-EPI)AfAm >90 (>60 ml/min/1.73 sqM) Est GFR (CKD-EPI)NonAf >90 (>60 ml/min/1.73 sqM) Glucose 129 H (74-99) mg/dL Calcium 8.6 (8.4-10.2) mg/dL Total Bilirubin 0.5 (0.2-1.3) mg/dL AST 38 H (14-36) U/L ALT 56 H (4-34) U/L Alkaline Phosphatase 161 H (38-126) U/L Total Protein 6.6 (6.3-8.2) g/dL Albumin 4.0 (3.5-5.0) g/dL - EKG Data EKG Comments: Sinus rhythm with QTC prolonged issue. Ventricular rate 70, MO 150, QRS 82, QTC 481. Disposition Clinical Impression: Shortness of breath, COPD exacerbation, Hypokalemia, Fever Disposition: ADMITTED IP TO THIS HOSP Condition: Stable Additional Instructions: Patient will be admitted Prescriptions: Amoxicillin/Potassium Clav [Augmentin 875-125 Tablet] 1 tab PO Q12HR #20 tab Is patient prescribed a controlled substance at d/c from ED?: No Referrals: Scottie De La Cruz DO [Primary Care Provider] - 1-2 days Time of Disposition: 13:02
[2020-06-05 11:44] LABS: Basophils # (A) 0.1 k/uL (0-0.2); Basophils % (A) 1 %; Eosinophils # (A) 0.1 k/uL (0-0.7); Eosinophils % (A) 1 %; HCT 42.3 % (34.0-46.0); HGB 13.5 gm/dL (11.4-16.0); Lymphocytes % (A) 10 %; MCH 26.7 pg (25.0-35.0); MCHC 31.9 g/dL (31.0-37.0); MCV 83.7 fL (80.0-100.0); Monocytes # (A) 0.6 k/uL (0-1.0); Monocytes % (A) 6 %; Neutrophils # (A) 8.2 k/uL (1.3-7.7); Neutrophils % (A) 82 %; Platelet Count 244 k/uL (150-450); RBC 5.05 m/uL (3.80-5.40); RDW 14.7 % (11.5-15.5)
--- NOTE | 2020-06-05 11:47 | XR ---
EXAMINATION TYPE: XR chest 2V DATE OF EXAM: 06/05/2020 COMPARISON: 11/27/2019 INDICATION: Difficulty breathing TECHNIQUE: Frontal and lateral views of the chest are obtained. FINDINGS: The heart size is normal. The pulmonary vasculature is normal. Minimal infiltrate is along the bilateral diaphragms more so on the left. Correlate for subsegmental atelectasis. IMPRESSION: 1. Minimal bibasilar subsegmental atelectasis.
[2020-06-05 11:52] LABS: ALT 56 U/L (4-34); AST 38 U/L (14-36); African American GFR (CKD) >90 (>60 ml/min/1.73 sqM); Alkaline Phosphatase 161 U/L (38-126); Anion Gap 9 mmol/L; Blood Urea Nitrogen 11 mg/dL (7-17); Calcium 8.6 mg/dL (8.4-10.2); Carbon Dioxide 26 mmol/L (22-30); Chloride 101 mmol/L (98-107); Glucose 129 mg/dL (74-99); Non-African American GFR(CKD) >90 (>60 ml/min/1.73 sqM); Potassium 3.4 mmol/L (3.5-5.1); Sodium 136 mmol/L (137-145); Total Bilirubin 0.5 mg/dL (0.2-1.3); Total Protein 6.6 g/dL (6.3-8.2)
[2020-06-05] MEDS ORDERED: POTASSIUM CHLORIDE ER 10 MEQ TAB.ER.PRT PO STA (12:14)
[2020-06-05] MEDS ORDERED: ACETAMINOPHEN TAB 500 MG TAB PO STA (12:20)
[2020-06-05] MEDS ORDERED: AMOXIC-POT CLAV 875-125MG 1 EACH TAB PO STA (12:22)
[2020-06-05] MEDS ORDERED: predniSONE 20 MG TAB PO STA (12:56)
[2020-06-05] MEDS ORDERED: NALOXONE 0.4 MG/ML 1 ML VIAL IV PRN (12:56)
[2020-06-05] MEDS ORDERED: MORPHINE SULFATE 4 MG/ML SYRINGE IV PRN (12:56)
[2020-06-05] MEDS ORDERED: LORazepam 2 MG/ML INJ IV PRN (12:56)
[2020-06-05] MEDS ORDERED: methylPREDNISolone SOD SUCCI 125 MG/2 ML VIAL IV STA (12:59)
[2020-06-05] MEDS ORDERED: cefTRIAXone IN SWFI 1,000 MG/10 ML SYRINGE IVP STA (12:59)
[2020-06-05] MEDS: SODIUM CHLORIDE 0.9% 1,000 ML IV SCH (16:52)
[2020-06-05] MEDS ORDERED: ALBUTEROL NEBULIZED 2.5 MG/3 ML INHALATION PRN (18:05)
[2020-06-05] MEDS: FUROSEMIDE 20 MG TAB PO SCH (18:36)
[2020-06-05 19:54] LABS: Glucose,Whole Blood 243 mg/dL (75-99)
[2020-06-05] MEDS: ATORVASTATIN 10 MG TAB PO SCH (21:44)
[2020-06-05] MEDS: INSULIN ASPART (NovoLOG) 100 UNIT/ML VIAL SQ SCH (21:44)
[2020-06-05] MEDS: methylPREDNISolone SOD SUCCI 125 MG/2 ML VIAL IV SCH (23:28)
[2020-06-06] MEDS: SODIUM CHLORIDE 0.9% 1,000 ML IV SCH ×2 (03:39→15:03)
[2020-06-06] MEDS: ACETAMINOPHEN TAB 325 MG TAB PO PRN ×2 (03:42→20:38)
[2020-06-06] MEDS: methylPREDNISolone SOD SUCCI 125 MG/2 ML VIAL IV SCH (05:01)
[2020-06-06 06:03] LABS: Glucose,Whole Blood 178 mg/dL (75-99)
[2020-06-06] MEDS: IPRATROPIUM 0.5 MG/2.5 ML NEBU INHALATION SCH ×2 (08:01→10:41)
[2020-06-06] MEDS: SYMBICORT 160-4.5 MCG INHALER INHALATION SCH ×3 (08:10→21:50)
[2020-06-06] MEDS: MULTIVITAMINS, THERA 1 EACH TAB PO SCH (08:33)
[2020-06-06] MEDS: PANTOPRAZOLE 40 MG TABLET PO SCH (08:34)
[2020-06-06] MEDS: hydroCHLOROthiazide 25 MG TAB PO SCH (08:34)
[2020-06-06] MEDS: FUROSEMIDE 20 MG TAB PO SCH ×2 (08:34→15:20)
[2020-06-06] MEDS: LOSARTAN 50 MG TAB PO SCH (08:34)
[2020-06-06] MEDS: CITALOPRAM HYDROBROMIDE 20 MG TAB PO SCH (08:34)
[2020-06-06] MEDS: INSULIN ASPART (NovoLOG) 100 UNIT/ML VIAL SQ SCH ×4 (08:35→22:32)
[2020-06-06] MEDS: ENOXAPARIN 40 MG/0.4 ML SYRINGE SQ SCH (11:28)
[2020-06-06] MEDS: LORATADINE-PSEUDOEPH 5-120 MG 1 EACH TAB.ER.12H PO SCH ×2 (11:29→20:39)
[2020-06-06 11:47] LABS: Glucose,Whole Blood 207 mg/dL (75-99)
[2020-06-06] MEDS: IPRATROPIUM-ALBUTEROL 3 ML NEB INHALATION SCH ×3 (14:27→21:50)
[2020-06-06] MEDS: methylPREDNISolone SOD SUCCI 40 MG/ML 1 ML VIAL IV SCH (15:20)
[2020-06-06 16:35] LABS: Glucose,Whole Blood 141 mg/dL (75-99)
--- NOTE | 2020-06-06 18:29 | P.HPIM ---
History of Present Illness H&P Date: 06/06/20 Chief Complaint: Short of breath History of presenting complaint: This is a pleasant [address] De La Cruz. Tonic stable medical conditions include GERD, hypertension, anxiety depression. Patient is ex-smoker. Patient about a week ago started off with a sore throat. Short of breath and wheezing. Also to fever and some chills. Cough with yellow sputum. Decreased appetite. Not getting better. Decided to present to the ER. Found to have COPD exacerbation. Started on bronchodilators. This morning some improvement. Still short of breath cough wheezing. Tired Review of systems: GEN.: Tired fever or chills EYES: None HEENT: Nasal stuffiness NECK: None RESPIRATORY: As above CARDIOVASCULAR: None GASTROINTESTINAL: None GENITOURINARY: None MUSCULOSKELETAL: None LYMPHATICS: None HEMATOLOGICAL: None PSYCHIATRY: Anxiety NEUROLOGICAL: None Past medical history to include: COPD, GERD, hypertension, anxiety depression, Social history: . Smoked about 3 packs a day for 28 years stopped about 15 years ago. No alcohol. Family history: Reviewed, noncontributory to presentation Physical examination: VITAL SIGNS: 100.7, 72, 18, 132/64, 96% room air GENERAL: BMI 35.1, sitting up, tired. EYES: Pupils equal. Conjunctiva normal. HEENT: External appearance of nose and ears normal, oral cavity grossly normal. NECK: JVD not raised; masses not palpable. HEART: First and second heart sounds are normal; no edema. LUNGS: Respiratory rate increased, diminished breath sounds on expiration wheezing. ABDOMEN: Soft, nontender, liver spleen not palpable, no masses palpable. PSYCH: Alert and oriented x3; mood and affect anxiousl. NEUROLOGICAL: Cranial nerves grossly intact; no facial asymmetry, power and sensation grossly intact. LYMPHATICS: No lymph nodes palpable in the axilla and neck INVESTIGATIONS, reviewed in the clinical context: White count and hemoglobin 13.5 platelets 244 potassium 3.4 creatinine 0.56 Accu-Cheks 243, 178 AST 38 ALT 56 EKG tracing personally reviewed by me-shows normal sinus rhythm some prolonged Q T interval. Chest x-ray film personally reviewed by me-prominent pulmonary artery, a bit coarse vasculature/interstitium Assessment: -Acute COPD exacerbation in an ex-smoker -Acute tracheal bronchitis -GERD -Essential hypertension -Anxiety depression not otherwise specified Plan: Patient be started on DuoNeb, Symbicort, IV Solu-Medrol in his steroids. Gentle hydration. For nasal stuffiness and itching the lactic Claritin-D. Patient needs at least 1 more night stay in the hospital. Care was discussed with the patient question also. Out of bed as tolerated. Lovenox for DVT prophylaxis. Past Medical History Past Medical History: Asthma, GERD/Reflux, Hypertension Additional Past Medical History / Comment(s): frequent right ankle swelling, emphysema History of Any Multi-Drug Resistant Organisms: None Reported Past Surgical History: Section, Cholecystectomy, Hernia Repair, Hysterectomy, Orthopedic Surgery Additional Past Surgical History / Comment(s): right ankle surg Past Anesthesia/Blood Transfusion Reactions: Motion Sickness, Postoperative Nausea & Vomiting (PONV) Past Psychological History: Anxiety, Depression Smoking Status: Never smoker Past Alcohol Use History: None Reported Past Drug Use History: None Reported - Past Family History Mother Family Medical History: No Reported History Medications and Allergies Home Medications Medication Instructions Recorded Confirmed Type Citalopram Hydrobromide 40 mg PO QAM 10/03/17 06/05/20 History [Citalopram HBr] Albuterol Sulfate [Proair Hfa] 2 puff INHALATION RT-QID PRN 06/08/18 06/05/20 History Amoxicillin/Potassium Clav 1 tab PO Q12HR #20 tab 06/05/20 Rx [Augmentin 875-125 Tablet] Biotin 5,000 mcg PO DAILY 06/05/20 06/05/20 History Fluticasone/Salmeterol 1 puff INHALATION RT-DAILY 06/05/20 06/05/20 History [Fluticasone-Salmeterol 232-14] Furosemide [Lasix] 20 mg PO BID 06/05/20 06/05/20 History Ketobooster Vitamin 1 cap PO DAILY 06/05/20 06/05/20 History Ketofit Vitamin 1 cap PO DAILY 06/05/20 06/05/20 History Losartan Potassium 50 mg PO DAILY 06/05/20 06/05/20 History Multivitamins, Thera [Multivitamin 1 tab PO DAILY 06/05/20 06/05/20 History (formulary)] Omeprazole 20 mg PO DAILY 06/05/20 06/05/20 History Simvastatin [Zocor] 20 mg PO HS 06/05/20 06/05/20 History Umeclidinium [place] [Incruse 1 puff INHALATION RT-DAILY 06/05/20 06/05/20 History Ellipta] hydroCHLOROthiazide [Hydrodiuril] 25 mg PO DAILY 06/05/20 06/05/20 History Allergies Allergy/AdvReac Type Severity Reaction Status Date / Time clarithromycin [From Biaxin] Allergy Severe Dyspnea Verified 06/05/20 12:00 Physical Exam Vitals: Vital Signs Temp Pulse Pulse Resp BP BP Pulse Ox 06/06/20 08:42 98.5 F 83 18 140/66 95 06/06/20 08:17 80 06/06/20 08:08 84 06/06/20 03:50 79 16 06/06/20 03:00 98.2 F 79 15 143/69 93 L 06/05/20 19:45 98.2 F 79 16 124/71 96 06/05/20 15:00 99.2 F 78 16 130/62 93 L 06/05/20 14:14 98.2 F 72 16 125/62 93 L 06/05/20 12:23 100.7 F H 72 18 132/64 96 06/05/20 11:25 90 06/05/20 11:18 22 06/05/20 11:13 96 06/05/20 10:43 99.3 F 90 18 134/80 99 Intake and Output 06/05/20 06/06/20 06/06/20 22:59 06:59 14:59 Intake Total 240 2000 Balance 240 2000 Intake: Intake, IV Titration 450 Amount Sodium Chloride 0.9% 1, 450 000 ml @ 75 mls/hr IV . [id number] [facility] Rx#:[id number] Oral 240 1550 Other: Voiding Method Toilet # Voids 2 1 2 Weight 107.955 kg Results CBC & Chem 7: 06/05/20 11:17 06/05/20 11:17 Labs: Abnormal Lab Results - Last 24 Hours (Table) 06/05/20 06/05/20 06/05/20 Range/Units 11:17 11:17 19:52 Neutrophils # 8.2 H (1.3-7.7) k/uL Sodium 136 L (137-145) mmol/L Potassium 3.4 L (3.5-5.1) mmol/L Glucose 129 H (74-99) mg/dL POC Glucose (mg/dL) 243 H (75-99) mg/dL AST 38 H (14-36) U/L ALT 56 H (4-34) U/L Alkaline Phosphatase 161 H (38-126) U/L 06/06/20 Range/Units 06:02 Neutrophils # (1.3-7.7) k/uL Sodium (137-145) mmol/L Potassium (3.5-5.1) mmol/L Glucose (74-99) mg/dL POC Glucose (mg/dL) 178 H (75-99) mg/dL AST (14-36) U/L ALT (4-34) U/L Alkaline Phosphatase (38-126) U/L
[2020-06-06] MEDS: ATORVASTATIN 10 MG TAB PO SCH (20:38)
[2020-06-06 22:29] LABS: Glucose,Whole Blood 143 mg/dL (75-99)
[2020-06-07] MEDS: ONDANSETRON 4 MG/2 ML VIAL IVP PRN ×2 (00:30→09:31)
[2020-06-07] MEDS: SODIUM CHLORIDE 0.9% 1,000 ML IV SCH (06:10)
[2020-06-07 06:18] LABS: Glucose,Whole Blood 133 mg/dL (75-99)
[2020-06-07] MEDS: IPRATROPIUM-ALBUTEROL 3 ML NEB INHALATION SCH ×3 (08:03→16:42)
[2020-06-07] MEDS: SYMBICORT 160-4.5 MCG INHALER INHALATION SCH (08:03)
[2020-06-07] MEDS: LOSARTAN 50 MG TAB PO SCH (09:29)
[2020-06-07] MEDS: CITALOPRAM HYDROBROMIDE 20 MG TAB PO SCH (09:29)
[2020-06-07] MEDS: MULTIVITAMINS, THERA 1 EACH TAB PO SCH (09:29)
[2020-06-07] MEDS: FUROSEMIDE 20 MG TAB PO SCH ×2 (09:29→15:37)
[2020-06-07] MEDS: PANTOPRAZOLE 40 MG TABLET PO SCH (09:30)
[2020-06-07] MEDS: hydroCHLOROthiazide 25 MG TAB PO SCH (09:30)
[2020-06-07] MEDS: LORATADINE-PSEUDOEPH 5-120 MG 1 EACH TAB.ER.12H PO SCH (09:30)
[2020-06-07] MEDS: ENOXAPARIN 40 MG/0.4 ML SYRINGE SQ SCH (09:31)
[2020-06-07] MEDS: INSULIN ASPART (NovoLOG) 100 UNIT/ML VIAL SQ SCH ×2 (09:31→14:29)
[2020-06-07] MEDS: methylPREDNISolone SOD SUCCI 40 MG/ML 1 ML VIAL IV SCH ×2 (09:31)
[2020-06-07] MEDS ORDERED: predniSONE 20 MG TAB PO SCH (10:45)
[2020-06-07 10:58] VITALS: TEMP 98.2
[2020-06-07 11:59] LABS: Glucose,Whole Blood 126 mg/dL (75-99)
[2020-06-07] MEDS: ACETAMINOPHEN TAB 325 MG TAB PO PRN (15:36)
[2020-06-07 15:44] VITALS: BP 178/86; PULSE 85; RESP 16
[2020-06-07 17:04] LABS: Glucose,Whole Blood 134 mg/dL (75-99)
--- NOTE | 2020-06-07 23:23 | P.DS ---
Providers Date of admission: 06/05/20 12:57 Expected date of discharge: 06/07/20 Attending physician: Jayjay Thomas Primary care physician: Scottie De La Cruz [facility] Course: Chief Complaint: Short of breath History of presenting complaint: This is a pleasant [address] De La Cruz. Tonic stable medical conditions include GERD, hypertension, anxiety depression. Patient is ex-smoker. Patient about a week ago started off with a sore throat. Short of breath and wheezing. Also to fever and some chills. Cough with yellow sputum. Decreased appetite. Not getting better. Decided to present to the ER. Found to have COPD exacerbation. Started on bronchodilators. steroids. Claritin-D. Today-from pulmonary status improved greatly. Did have some nausea vomiting felt to be from morphine she received. later in the day she improved quite a bit. Discussed with the patient.stable for discharge. Discussion and discharge planning more than 35 minutes Physical examination: VITAL SIGNS: 98.2, 85, 16, 162/81, 97% room air GENERAL:sitting up awake EYES: Pupils equal. Conjunctiva normal. HEENT: External appearance of nose and ears normal, oral cavity grossly normal. NECK: JVD not raised; masses not palpable. HEART: First and second heart sounds are normal; no edema. LUNGS: Respiratory rate increased, diminished breath sounds on expiration ABDOMEN: Soft, nontender, liver spleen not palpable, no masses palpable. PSYCH: Alert and oriented x3; mood and affect anxiousl. INVESTIGATIONS, reviewed in the clinical context: White count and hemoglobin 13.5 platelets 244 potassium 3.4 creatinine 0.56 Accu-Cheks 243, 178 AST 38 ALT 56 EKG tracing personally reviewed by me-shows normal sinus rhythm some prolonged QT interval. Chest x-ray film personally reviewed by me-prominent pulmonary artery, a bit coarse vasculature/interstitium COVID 19 PCR-not detected Assessment: -Acute COPD exacerbation in an ex-smoker -Acute tracheal bronchitis -GERD -Essential hypertension -Anxiety depression not otherwise specified -Nausea vomiting as side effect of morphine disposition: Home Patient Condition at Discharge: Stable Plan - Discharge Summary New Discharge Prescriptions: New Loratadine-Pseudoeph 5-120 mg [Claritin-D 12 Hour] 1 each PO Q12HR #10 tab.er.12h predniSONE 10 mg PO DAILY #30 tab guaiFENesin [Mucinex] 1,200 mg PO BID #30 tbmp.12hr Continue Citalopram Hydrobromide [Citalopram HBr] 40 mg PO QAM Albuterol Sulfate [Proair Hfa] 2 puff INHALATION RT-QID PRN PRN Reason: Shortness Of Breath Ketobooster Vitamin 1 cap PO DAILY Simvastatin [Zocor] 20 mg PO HS Multivitamins, Thera [Multivitamin (formulary)] 1 tab PO DAILY Biotin 5,000 mcg PO DAILY Umeclidinium [place] [Incruse Ellipta] 1 puff INHALATION RT-DAILY Omeprazole 20 mg PO DAILY Losartan Potassium 50 mg PO DAILY Furosemide [Lasix] 20 mg PO BID Fluticasone/Salmeterol [Fluticasone-Salmeterol 232-14] 1 puff INHALATION RT- DAILY Ketofit Vitamin 1 cap PO DAILY Discontinued hydroCHLOROthiazide [Hydrodiuril] 25 mg PO DAILY Discharge Medication List Citalopram Hydrobromide [Citalopram HBr] 40 mg PO QAM 10/03/17 [History] Albuterol Sulfate [Proair Hfa] 2 puff INHALATION RT-QID PRN 06/08/18 [History] Biotin 5,000 mcg PO DAILY 06/05/20 [History] Fluticasone/Salmeterol [Fluticasone-Salmeterol 232-14] 1 puff INHALATION RT- DAILY 06/05/20 [History] Furosemide [Lasix] 20 mg PO BID 06/05/20 [History] Ketobooster Vitamin 1 cap PO DAILY 06/05/20 [History] Ketofit Vitamin 1 cap PO DAILY 06/05/20 [History] Losartan Potassium 50 mg PO DAILY 06/05/20 [History] Multivitamins, Thera [Multivitamin (formulary)] 1 tab PO DAILY 06/05/20 [History] Omeprazole 20 mg PO DAILY 06/05/20 [History] Simvastatin [Zocor] 20 mg PO HS 06/05/20 [History] Umeclidinium [place] [Incruse Ellipta] 1 puff INHALATION RT-DAILY 06/05/20 [History] Loratadine-Pseudoeph 5-120 mg [Claritin-D 12 Hour] 1 each PO Q12HR #10 tab.er.12h 06/07/20 [Rx] guaiFENesin [Mucinex] 1,200 mg PO BID #30 tbmp.12hr 06/07/20 [Rx] predniSONE 10 mg PO DAILY #30 tab 06/07/20 [Rx] Follow up Appointment(s)/Referral(s): Scottie De La Cruz DO [Primary Care Provider] - 1-2 days Patient Instructions/Handouts: COPD (Chronic Obstructive Pulmonary Disease) (GEN) Activity/Diet/Wound Care/Special Instructions: Patient will be admitted
== END 2020-06-07 18:15 ==
LOC: EC 10:40 → 1SOBS 12:57
PROVIDERS: ADMIT Hospitalist; ATTEND Hospitalist
DX: J20.9 Acute bronchitis, unspecified (principal); J43.9 Emphysema, unspecified; E87.6 Hypokalemia; J45.909 Unspecified asthma, uncomplicated; K21.9 Gastro-esophageal reflux disease without esophagitis; I10 Essential (primary) hypertension; R11.2 Nausea with vomiting, unspecified; T40.2X5A Adverse effect of other opioids, initial encounter; J98.11 Atelectasis; F32.9 Major depressive disorder, single episode, unspecified; F41.9 Anxiety disorder, unspecified; E66.9 Obesity, unspecified; Z68.35 Body mass index [BMI] 35.0-35.9, adult; Z20.828 Contact with and (suspected) exposure to other viral communicable diseases; Z79.51 Long term (current) use of inhaled steroids; Z79.899 Other long term (current) drug therapy; Z88.1 Allergy status to other antibiotic agents; Z90.710 Acquired absence of both cervix and uterus; Z87.891 Personal history of nicotine dependence
CPT/HCPCS: 96361 ×3; 96372 ×2; 96375 ×3; 96376 ×2; 96374; 99285; 36415; 94640 ×3; 93005; 85379; 80053; 85025; 71046; G0378 ×3; U0003; J2270; J2920 ×2; J2930 ×2; J2405; J1650 ×2; 87324

== ENCOUNTER → 2020-08-29 | Outpatient (CLI) | payer OTHER | END | disposition home or self-care (01) | LOC: LABWHC1 15:28 | PROVIDERS: ATTEND Physician Assistant | DX: R05 Cough (principal) | CPT/HCPCS: U0003; C9803 ==

== ENCOUNTER → 2020-12-24 | Outpatient (CLI) | payer OTHER ==
--- NOTE | 2020-12-24 17:23 | PN ---
PROGRESS NOTE This is a progress note regarding sleep apnea. Mera is 55 with severe obstructive sleep apnea. She is coming in for an annual check. Since her last evaluation, her compliance has gone down and the patient has been having difficulty tolerating a full-face mask. She has severe CLAUS with an AHI of 36 and she is currently on a CPAP pressure of 12 cm of water. Note that over the past one year she has gained weight. Her current weight is 248 from a baseline of 232. She is a former smoker and she quit in 2008. I checked the compliance data, and over the past 365 days the patient has utilized the machine 65 days only and she achieved more than 4 hours only 45 days. Average usage is around 5 hours. The leak has been 34 L/minute and AHI is down to 2.7. As such, the treatment is successful as long as the patient is able to tolerate the treatment. I offered different masks today, and my intention is to switch this patient to a nose mask. Otherwise, she has COPD and her COPD is currently inactive and stable. Her blood pressure is also stable. She is somnolent and sleepy, as the patient has not been using her CPAP unit recently. DRUG ALLERGIES: NOT KNOWN. OUTPATIENT MEDICATIONS: Outpatient medications include: 1. Advair 230/21 two puffs twice a day. 2. Spiriva 1 inhalation a day. 3. Albuterol HFA on a p.r.n. basis. 4. Omeprazole 20 mg p.o. daily. 5. Tagamet 200 mg p.o. before dinner. 6. Citalopram 40 mg p.o. daily. 7. Lasix 20 mg p.o. daily. 8. Potassium supplements. 9. Zocor 20 mg p.o. daily. REVIEW OF SYSTEMS: Fourteen-point review of systems was done, and the positive findings are all mentioned in the history of present illness. She is somnolent and sleepy for now, as the patient's sleep apnea is suboptimally treated. SURGICAL HISTORY: Surgical history includes , cholecystectomy and previous history of foot surgery. PHYSICAL EXAMINATION: VITAL SIGNS: BP is 147/89, pulse 72, respirations 16, temperature 98.1, saturation 97% on room air. Height is 5 feet 4 inches, weight is 248 and BMI is 35.7. [place] score is 6. GENERAL APPEARANCE: Obese, calm, comfortable. HEAD: Atraumatic, normocephalic. NECK: Supple. No JVD. No goiter or neck masses. Mallampati class IV. LUNGS: Clear to auscultation. HEART: Heart sounds are regular rate and rhythm. Normal S1, S2. No S3, S4. No murmurs. ABDOMEN: Soft, nontender. No organomegaly. EXTREMITIES: No edema. No cyanosis or clubbing. NEUROLOGIC: Awake and alert. There is no focal neurological deficit. IMPRESSION: 1. Severe symptomatic obstructive sleep apnea with an apnea/hypopnea index of 36, currently on CPAP pressure of 12. Poor compliance has been noted, probably related to an uncomfortable mask. 2. Chronic hypersomnia secondary to above. 3. Obesity with interval weight gain on the order of 16 pounds. Current BMI is 35.7. 4. Hypertension. 5. Hyperlipidemia. 6. Acid reflux. 7. Chronic obstructive pulmonary disease. PLAN: Trialed different masks, and I am recommending switching this patient to a nasal mask. I gave her a sample of an AirFit N20 nasal mask, medium size, and the appropriate adjustments were made. The patient was educated on the use of this mask. We will keep the pressure setting at the same level of 12 cm of water and will proceed with the treatment. The patient will see me back in short-term followup to re-evaluate her compliance and clinical response. Encourage weight loss. She has gained 16 pounds. She was made aware. Rest of the medications were reviewed. No other changes from the pulmonary standpoint. Continue Advair. Continue Spiriva. Continue antihypertensive medications for now. BP is under good control. Will continue to follow. See me back in 2 months' time and hopefully will be able to achieve better compliance on this patient. MMODL / IJN: [id number] /
== END | disposition home or self-care (01) ==
LOC: SLEEP 15:17
PROVIDERS: ATTEND Internal Medicine Critical Care Medicine
DX: G47.33 Obstructive sleep apnea (adult) (pediatric) (principal); I10 Essential (primary) hypertension; E78.5 Hyperlipidemia, unspecified; K21.9 Gastro-esophageal reflux disease without esophagitis; J44.9 Chronic obstructive pulmonary disease, unspecified; E66.9 Obesity, unspecified; Z68.35 Body mass index [BMI] 35.0-35.9, adult; Z99.89 Dependence on other enabling machines and devices; Z79.899 Other long term (current) drug therapy; Z79.51 Long term (current) use of inhaled steroids

== ENCOUNTER → 2021-01-20 | Outpatient (CLI) | payer OTHER ==
--- NOTE | 2021-01-20 13:07 | CTL ---
EXAMINATION TYPE: CT Low Dose Lung DATE OF EXAM ORDERED: 01/20/2021 HISTORY: Personal history tobacco use. Lung cancer screening CT DLP: 105 mGycm Automated exposure control for dose reduction was used. SCREENING VISIT: Initial COMPARISON: None TECHNIQUE: Low dose computed tomography scan was performed through the chest at 1 mm thick sections a nd reconstructed images in the coronal plane at [address] DIAGNOSTIC QUALITY: Limited, but interpretable FINDINGS: LUNG NODULES: Present, detailed below: On reconstructed images at 5 mm thick sections there is a 0.4 cm nodule with lateral right lung. Seri es 3 image 27. LUNGS: COPD: Severity: None Fibrosis: Severity: None Lymph nodes: Non- Other findings: None RIGHT PLEURAL SPACE: Effusion: None Calcification: None Thickening: None Pneumothorax: None LEFT PLEURAL SPACE: Effusion: None Calcification: None Thickening: None Pneumothorax: None HEART: Heart Size: Normal Coronary calcification: None Pericardial effusion: Minimal OTHER FINDINGS: Upper abdomen: Normal Bony thorax: Normal Supraclavicular region: Normal Other: The ascending thoracic aorta at the level of the main pulmonary arteries 3.3 cm. Main pulmonar y artery the bifurcation is 2.8 cm. IMPRESSION: No suspicious changes FOLLOW UP CT CHEST RECOMMENDATION: Follow-up low-dose CT chest one year CT LUNG RAD: Lung-Rad 2 Benign Appearance or Behavior
== END | disposition home or self-care (01) ==
LOC: RADCTMAIN 08:23
PROVIDERS: ATTEND Family Medicine
DX: Z12.2 Encounter for screening for malignant neoplasm of respiratory organs (principal); Z87.891 Personal history of nicotine dependence
CPT/HCPCS: 71271

== ENCOUNTER → 2021-02-10 | Outpatient (CLI) | payer OTHER ==
--- NOTE | 2021-02-10 17:10 | XR ---
EXAMINATION TYPE: XR ankle complete RT DATE OF EXAM: 02/10/2021 COMPARISON: NONE HISTORY: Pain TECHNIQUE: 3 views FINDINGS: Ankle mortise is anatomic. I see no fracture nor dislocation. There is mild soft tissue swe lling around the ankle. There is a pin in the navicular bone. IMPRESSION: Mild soft tissue swelling. No fracture.
== END | disposition home or self-care (01) ==
LOC: RADXRMAIN 16:39
PROVIDERS: ATTEND Family Medicine
DX: M25.471 Effusion, right ankle (principal)

== ENCOUNTER → 2021-02-25 | Outpatient (CLI) | payer OTHER ==
--- NOTE | 2021-02-25 16:24 | PN ---
PROGRESS NOTE This patient was last seen a few months back here at the sleep center. She has severe obstructive sleep apnea with an AHI of 36 and patient has been treated with a CPAP pressure of 12 cm of water. She is overall demonstrating poor compliancy and for that reason, she was given a different mask which is AirFit N20 nose mask and the patient was asked to come back for a followup. I kept her pressure at 12 cm of water at that time. Note that she also has history of COPD, maintained on a combination of Advair and Spiriva on an outpatient basis. Based on a 30-day compliancy data, the patient has been averaging 4.9 hours of CPAP use per night and CPAP use for more than 4 hours is around 50%. AHI is down to 2.6. No significant leaks and the leak in order of 14 L/minute. Over the past 30 days the patient utilized the machine 23 out of 30 days. Upon further questioning, she is still having difficulties with the nose mask. She is still having hard time maintaining sleep, especially with that mask on her nose. She is looking for alternatives. Her weight has been stable. While on the machine, her treatment is successful and the patient is able to reduce her AHI under 5. PHYSICAL EXAMINATION: VITAL SIGNS: BP is 153/82, pulse 74, respirations 12, temperature 98.0, saturation 97% on room air. GENERAL APPEARANCE: Calm, comfortable. HEAD: Atraumatic, normocephalic. NECK: Supple. There is no JVD, no goiter or neck mass. Mallampati class 4. LUNGS: Clear to auscultation. HEART: Sounds are regular rate and rhythm. Normal S1, S2. No S3, no S4. No murmurs. ABDOMEN: Soft, nontender. No organomegaly. EXTREMITIES: No edema. No cyanosis or clubbing. MEDICATIONS: Medications include Spiriva 1 inhalation, Advair 230/21 two puffs twice a day, losartan 50 mg p.o. daily, albuterol HFA on a p.r.n. basis, omeprazole 20 mg p.o. daily, citalopram 40 mg p.o. daily, 20 mg p.o. daily, Lasix 20 mg p.o. daily, and simvastatin 40 mg p.o. daily. Kennedy score of 14. IMPRESSION: 1. Obstructive sleep apnea, severe AHI of 36. Compliance over the past 30 days is improved although still poor. Treatment has been successful as long as the patient is able to keep mask on. 2. Chronic hypersomnia. 3. Obesity with a body mass index of 35.2. 4. Hypertension. 5. Hyperlipidemia. 6. Chronic obstructive pulmonary disease. 7. Acid reflux. PLAN: 1. Offer the patient an AirFit N30i nose mask as an alternative mask. 2. Drop the CPAP pressure down to 10 cm of water. 3. I am hoping these above two mentioned adjustments is going to improve the patient's overall compliancy. 4. Will do a short-term followup in 3 months' time. MMODL / IJN: [id number] /
== END ==
LOC: SLEEP 11:46
PROVIDERS: ATTEND Internal Medicine Critical Care Medicine
DX: G47.33 Obstructive sleep apnea (adult) (pediatric) (principal); E66.9 Obesity, unspecified; Z3A.35 35 weeks gestation of pregnancy; I10 Essential (primary) hypertension; E78.5 Hyperlipidemia, unspecified; J44.9 Chronic obstructive pulmonary disease, unspecified; K21.9 Gastro-esophageal reflux disease without esophagitis

== ENCOUNTER → 2021-03-06 | Outpatient (CLI) | payer OTHER ==
--- NOTE | 2021-03-06 08:14 | US ---
EXAMINATION TYPE: US thyroid st tissue head/neck DATE OF EXAM: 03/06/2021 COMPARISON: NONE CLINICAL HISTORY: E04.9 Nontoxic goiter. Neck swelling x couple months GLAND SIZE: Right Lobe: 4.8 x 2.3 x 2.1 cm Overall Parenchyma: heterogenous Left Lobe: 5.4 x 2.4 x 1.7 cm Overall Parenchyma: heterogeneous Isthmus Thickness: 0.3 cm NODULES RIGHT: # of nodules measured on right: 0 LEFT: # of nodules measured on left: 0 ISTHMUS: # of nodules measured in the isthmus: 0 Bilateral neck scanned, no evidence of lymphadenopathy. Markedly heterogeneous normal-sized thyroid without discrete nodules. IMPRESSION: As above.
== END | disposition home or self-care (01) ==
LOC: RADUSWWP 07:30
PROVIDERS: ATTEND Family Medicine
DX: E04.9 Nontoxic goiter, unspecified (principal)
CPT/HCPCS: 76536

== ENCOUNTER → 2021-06-10 | Outpatient (CLI) | payer OTHER ==
--- NOTE | 2021-06-10 14:37 | PN ---
PROGRESS NOTE This patient was diagnosed having severe obstructive sleep apnea with an AHI of 36. During her last evaluation in January of 2021, the patient was having difficulties in tolerating CPAP therapy and her compliance data was not as good as expected. As such, I did a few changes. I offered the patient a different mask interface and I fitted to an air fit N30I small-sized nasal mask. I also lowered the CPAP pressure down to 10 cm of water. I asked the patient to come in for a followup for reevaluation. She is known to have COPD, maintained on a combination of Advair and Spiriva. During this time, the patient was offered a different blood pressure medication. She was given losartan in combination with amlodipine and she has achieved a tighter blood pressure control. She was also given trazodone for some chronic anxiety and depression and sleepy and she is taking 50 mg at bedtime, typically taking around 10 p.m. She is able to generate sleep. She is sleeping better while on CPAP therapy and currently she has been using her machine every night and compliancy for more than 4 hours has been in the order of 80%. This is based on a 30-day compliancy. The patient is averaging around 6.9 hours of CPAP use per night with a leak factor of 18 L/minute and her AHI is down to 2.0. As such the treatment has become much more successful and the patient is waking up refreshed and alert during the day without any significant hypersomnia or sleepiness. Does not wake up or chest pain, shortness of breath, headaches, or any other complaints otherwise. REVIEW OF SYSTEMS: Fourteen-point review of system was done and the positive findings are mentioned in history of present illness. PHYSICAL EXAMINATION: BP is 133/66, pulse 71, respirations 18, temperature 97.1. Saturation 97% on room air. Height is 5 feet 9 inches. Weight is 253, BMI 36.6. GENERAL APPEARANCE: Calm, comfortable. Head is atraumatic normocephalic. NECK: Supple. No JVD. No goiter or neck masses Mallampati class 4. LUNGS: Clear to auscultation. HEART: Heart sounds are regular rate and rhythm. Normal S1, S2. No S3, S4. No murmurs. ABDOMEN: Soft, nontender. No organomegaly. No direct tenderness. No rebound or guarding. EXTREMITIES: No edema. No cyanosis or clubbing. NEUROLOGIC: Awake and alert. There are no focal neurological deficits. MEDICATION LIST: Includes Advair HFA 230/21 2 puffs twice a day. Spiriva 1 inhalation a day. Albuterol updraft on a p.r.n. basis. Omeprazole 40 mg p.o. daily, Citalopram 40 mg p.o. daily, Lasix 20 mg p.o. daily, Zocor 40 mg p.o. daily, Norvasc 5 mg p.o. daily, trazodone 50 mg at bedtime, losartan 100 mg daily. IMPRESSION: 1. Obstructive sleep apnea severe, AHI of 36. The patient has achieved better control of her obstructive sleep apnea with above-mentioned interventions. Currently improved in terms of her compliance and clinical response. 2. Hypertension, under tighter control. 3. Obesity BMI of 36.6. 4. Hypertension. 5. Hyperlipidemia. 6. Chronic obstructive pulmonary disease. 7. Acid reflux. PLAN: 1. Continue CPAP therapy at a pressure of 10 cm of water. 2. Offer the same AirFit N30I nasal mask. 3. Encourage weight loss. 4. Continue tight control of cardiovascular risk factors. 5. Agree with trazodone in combination with citalopram. Trazodone will be taken at bedtime at 50 mg, which is improved in sleep induction and maintenance. 6. Checked compliance data and the numbers have improved considerably. 7. Will see me back in followup in a year's time. Continue treatment. Refills on her mask interface were given and the patient will be using AirFit N30I small-sized nasal mask. MMODL / IJN: [id number] /
== END ==
LOC: SLEEP 13:13
PROVIDERS: ATTEND Internal Medicine Critical Care Medicine
DX: G47.33 Obstructive sleep apnea (adult) (pediatric) (principal); E66.9 Obesity, unspecified; E78.5 Hyperlipidemia, unspecified; I10 Essential (primary) hypertension; J44.9 Chronic obstructive pulmonary disease, unspecified; K21.9 Gastro-esophageal reflux disease without esophagitis; Z68.36 Body mass index [BMI] 36.0-36.9, adult; Z79.899 Other long term (current) drug therapy; Z79.51 Long term (current) use of inhaled steroids; Z88.1 Allergy status to other antibiotic agents; Z87.891 Personal history of nicotine dependence

== ENCOUNTER 2021-11-01 04:03 | Emergency (ER) | payer OTHER ==
[2021-11-01 04:47] VITALS: BP 125/67; PULSE 71; RESP 16; TEMP 98.6
[2021-11-01] MEDS ORDERED: ORPHENADRINE 30 MG/ML 2 ML VIAL IM STA (05:30)
[2021-11-01] MEDS ORDERED: KETOROLAC 15 MG/ML 1 ML VIAL IM STA (05:31)
--- NOTE | 2021-11-01 06:51 | ED ---
Neck Injury/Pain HPI - General Chief Complaint: Neck Pain/Injury Stated Complaint: L Shoulder/Back Pain Time Seen by Provider: 11/01/21 05:12 Mode of arrival: wheelchair Limitations: no limitations - History of Present Illness Initial Comments: This patient is a 56-year-old woman who presents to be valid for left-sided neck pain. She states that it is been going on since she had been reaching for an object that fell. She feels like something was strained. She has tried some [id number] medication without much relief. She applied a warm compress which only helped a little bit. Patient denies any neurologic symptoms to the neck or arm or back. MD Complaint: neck pain, neck injury -: hour(s) Place: home Radiation: left lateral Severity: moderate Quality: aching Consistency: constant Improves With: remaining still Worsens With: movement of extremity, movement of neck Context: turning/bending Associated Symptoms: none Treatments Prior to Arrival: none - Related Data Home Medications Medication Instructions Recorded Confirmed Citalopram Hydrobromide 40 mg PO QAM 10/03/17 06/05/20 [Citalopram HBr] Albuterol Sulfate [Proair Hfa] 2 puff INHALATION RT-QID PRN 06/08/18 06/05/20 Biotin [Biotin Disolve] 5,000 mcg PO DAILY 06/05/20 06/05/20 Fluticasone/Salmeterol 1 puff INHALATION RT-DAILY 06/05/20 06/05/20 [Fluticasone-Salmeterol 232-14] Furosemide [Lasix] 20 mg PO BID 06/05/20 06/05/20 Ketobooster Vitamin 1 cap PO DAILY 06/05/20 06/05/20 Ketofit Vitamin 1 cap PO DAILY 06/05/20 06/05/20 Losartan Potassium 50 mg PO DAILY 06/05/20 06/05/20 Multivitamins, Thera [Multivitamin 1 tab PO DAILY 06/05/20 06/05/20 (formulary)] Omeprazole 20 mg PO DAILY 06/05/20 06/05/20 Simvastatin [Zocor] 20 mg PO HS 06/05/20 06/05/20 Umeclidinium [place] [Incruse 1 puff INHALATION RT-DAILY 06/05/20 06/05/20 Ellipta] Previous Rx's Medication Instructions Recorded Loratadine-Pseudoeph 5-120 mg 1 each PO Q12HR #10 tab.er.12h 06/07/20 [Claritin-D 12 Hour] guaiFENesin [Mucinex] 1,200 mg PO BID #30 tbmp.12hr 06/07/20 predniSONE 10 mg PO DAILY #30 tab 06/07/20 Ibuprofen 800 mg PO TID #20 tablet 11/01/21 Methocarbamol [Robaxin-750] 750 mg PO TID PRN #30 tablet 11/01/21 Allergies Allergy/AdvReac Type Severity Reaction Status Date / Time clarithromycin [From Biaxin] Allergy Severe Dyspnea Verified 11/01/21 04:47 Review of Systems ROS Statement: Those systems with pertinent positive or pertinent negative responses have been documented in the HPI. ROS Other: All systems not noted in ROS Statement are negative. Constitutional: Denies: fever, chills, weakness Respiratory: Denies: cough, dyspnea Cardiovascular: Denies: chest pain, palpitations Gastrointestinal: Denies: abdominal pain Musculoskeletal: Reports: as per HPI, other (Neck and shoulder pain). Denies: back pain Skin: Denies: rash Neurological: Denies: headache, weakness, numbness, paresthesias Past Medical History Past Medical History: Asthma, GERD/Reflux, Hypertension Additional Past Medical History / Comment(s): frequent right ankle swelling, emphysema History of Any Multi-Drug Resistant Organisms: None Reported Past Surgical History: Section, Cholecystectomy, Hernia Repair, Hyst erectomy, Orthopedic Surgery Additional Past Surgical History / Comment(s): right ankle surg Past Anesthesia/Blood Transfusion Reactions: Motion Sickness, Postoperative Nausea & Vomiting (PONV) Past Psychological History: Anxiety, Depression Smoking Status: Never smoker Past Alcohol Use History: None Reported Past Drug Use History: None Reported - Past Family History Mother Family Medical History: No Reported History General Exam Limitations: no limitations General appearance: alert, in no apparent distress Head exam: Present: atraumatic, normocephalic Neck exam: Present: normal inspection, tenderness (There is tenderness over the lower trapezius on the left as well as the rhomboid muscle area is), full ROM Respiratory exam: Present: normal lung sounds bilaterally. Absent: respiratory distress, wheezes, rales, rhonchi, stridor Cardiovascular Exam: Present: regular rate, normal rhythm, normal heart sounds. Absent: systolic murmur, diastolic murmur, rubs, gallop Back exam: Present: normal inspection, full ROM, muscle spasm, paraspinal tenderness. Absent: vertebral tenderness Neurological exam: Present: alert. Absent: motor sensory deficit Skin exam: Present: warm, dry, intact, normal color. Absent: rash Course Vital Signs 11/01/21 04:43 Temperature 98.6 F Pulse Rate 71 Respiratory 16 Rate Blood Pressure 125/67 O2 Sat by Pulse 96 Oximetry Disposition Clinical Impression: Strain of neck muscle Disposition: HOME SELF-CARE Condition: Good Instructions (If sedation given, give patient instructions): Cervical Strain (ED) Prescriptions: Ibuprofen 800 mg PO TID #20 tablet Methocarbamol [Robaxin-750] 750 mg PO TID PRN #30 tablet PRN Reason: pain Is patient prescribed a controlled substance at d/c from ED?: No Referrals: Scottie De La Cruz DO [Primary Care Provider] - 1-2 days
== END 2021-11-01 07:02 | disposition home or self-care (01) ==
LOC: EC 04:03
DX: S16.1XXA Strain of muscle, fascia and tendon at neck level, initial encounter (principal); J45.909 Unspecified asthma, uncomplicated; K21.9 Gastro-esophageal reflux disease without esophagitis; I10 Essential (primary) hypertension; F41.9 Anxiety disorder, unspecified; F32.A Depression, unspecified; Z88.1 Allergy status to other antibiotic agents; Z90.49 Acquired absence of other specified parts of digestive tract; Z90.710 Acquired absence of both cervix and uterus; X50.0XXA Overexertion from strenuous movement or load, initial encounter
CPT/HCPCS: 99283; 96372 ×2; J2360; J1885

== ENCOUNTER → 2021-11-20 | Outpatient (CLI) | payer MEDICARE, OTHER | END | disposition home or self-care (01) | LOC: LABWHC1 12:01 | PROVIDERS: ATTEND Family Medicine | DX: Z20.822 Contact with and (suspected) exposure to COVID-19 (principal) | CPT/HCPCS: U0003; C9803; U0005 ==

== ENCOUNTER → 2021-12-08 | Outpatient (CLI) | payer MEDICARE, OTHER ==
--- NOTE | 2021-12-08 08:44 | US ---
EXAMINATION TYPE: US abdomen complete DATE OF EXAM: 12/08/2021 COMPARISON: None CLINICAL HISTORY: 56-year-old female N28.1 cyst kidney, R74.8 abnormal enzymes. TECHNIQUE: Multiple sonographic images of the abdomen are obtained. FINDINGS: EXAM MEASUREMENTS: Liver Length: 23.2 cm Gallbladder: Surgically absent CBD: 0.3 cm Spleen: 13.4 cm Right Kidney: 13.1 x 4.5 c 5.9 cm Left Kidney: 12.2 x 5.7 x 4.8 cm Manager Field Sales notes: Morbidly obese patient. Technically difficult, limited study. Pancreas: Obscured by bowel gas Liver: Enlarged and echogenic. Hypoechoic area measuring 1.8 x 1.7 x 2.4cm along the posterior left l iver lobe. Somewhat geographic appearance on the transverse images, possible focal fatty sparing. Gallbladder: Surgically absent Evidence for sonographic De La Cruz's sign: No CBD: wnl Spleen: Borderline in size. Right Kidney: Mild pelvicaliectasis Left Kidney: Small central midpole cyst measuring 0.8 x 0.5 x 0.9cm. No hydronephrosis. Upper IVC: wnl Abd Aorta: very limited visualization, portions visualized appear wnl IMPRESSION: 1. Hepatomegaly (23.2 cm) with at least moderate hepatic steatosis. Correlate with LFTs, lipid profil e, and patient risk factors. 2. A 2.4 cm hypoechoic lesion posterior left liver lobe, suspected focal fatty sparing. Six-month fol low-up ultrasound to reassess. 3. Status post cholecystectomy. No biliary ductal dilatation. 4. Mild right-sided pelvicaliectasis may be transient. Correlate for any right-sided renal colic and with urinalysis to determine between further cross-sectional evaluation versus short interval follow- up ultrasound to reassess. 5. Spleen upper limits of normal in size at 13.4 cm.
== END ==
LOC: RADUSWWP 07:42
PROVIDERS: ATTEND Family Medicine
DX: N28.89 Other specified disorders of kidney and ureter (principal); K76.0 Fatty (change of) liver, not elsewhere classified; R16.0 Hepatomegaly, not elsewhere classified; K76.9 Liver disease, unspecified; Z90.49 Acquired absence of other specified parts of digestive tract
CPT/HCPCS: 76700

== ENCOUNTER → 2022-03-04 | Outpatient (CLI) | payer MEDICARE, OTHER ==
[2022-03-04 14:37] LABS: Basophils # (A) 0.05 X 10*3/uL (0.00-0.10); Basophils % (A) 0.6 %; Eosinophils # (A) 0.17 X 10*3/uL (0.04-0.35); HCT 37.7 % (37.2-46.3); HGB 11.4 g/dL (12.0-15.0); Immature Grans, Automated 1.3 %; Lymphocytes # (A) 1.39 X 10*3/uL (0.90-5.00); Lymphocytes % (A) 16.1 %; MCH 25.3 pg (27.0-32.0); MCHC 30.2 g/dL (32.0-37.0); MCV 83.6 fL (80.0-97.0); Mean Platelet Volume 10.3 fL (9.5-12.2); Monocytes # (A) 0.64 X 10*3/uL (0.20-1.00); Monocytes % (A) 7.4 %; NRBC Per 100 WBC 0 /100 WBCS (0.0-0.0); Neutrophils # (A) 6.28 X 10*3/uL (1.80-7.70); Neutrophils % (A) 72.6 %; Platelet Count 242 X 10*3/uL (140-440); RBC 4.51 X 10*6/uL (4.10-5.20); WBC 8.64 X 10*3/uL (4.50-10.00)
[2022-03-04 15:16] LABS: Protein, Total 6.1 g/dL (6.2-8.2)
[2022-03-04 15:21] LABS: % Iron Saturation 12.95 (12.00-45.00); African American GFR (CKD) 121.1 (60.0-200.0); Albumin 4.1 g/dL (3.8-4.9); Albumin/Globulin Ratio 2.15 (1.60-3.17); Anion Gap 12.7 mmol/L (10.00-18.00); BUN/Creat Ratio 29.6 Ratio (12.00-20.00); Blood Urea Nitrogen 16.1 mg/dL (9.0-27.0); Calcium 9.2 mg/dL (8.7-10.3); Carbon Dioxide 25.2 mmol/L (20.0-27.5); Ferritin 65.7 ng/mL (10.0-291.0); Globulin 1.9 g/dL (1.6-3.3); Non-African American GFR(CKD) 104.5 (60.0-200.0); Potassium 3.6 mmol/L (3.5-5.5); Total Bilirubin 0.2 mg/dL (0.30-1.20)
[2022-03-04 15:34] LABS: Hepatitis B Surface Antigen Nonreactive (Nonreactive); Hepatitis C IgG Antibody Nonreactive (Nonreactive)
[2022-03-04 16:11] LABS: Ceruloplasmin 23.7 mg/dL (20.0-60.0)
[2022-03-05 15:06] LABS: Albumin 3.69 g/dL (3.80-4.90); Gamma Globulin 0.74 g/dL (0.70-1.50)
[2022-03-06 03:33] LABS: ANA Pattern Centromere
== END | disposition home or self-care (01) ==
LOC: LABWHC1 08:23
PROVIDERS: ATTEND Nurse Practitioner Family
DX: R74.8 Abnormal levels of other serum enzymes (principal); R74.01 Elevation of levels of liver transaminase levels
CPT/HCPCS: 36415; 80053; 82103; 82105; 82390; 82728; 83516; 83540; 83550; 84165; 85025; 86038; 86039; 86803; 87340

== ENCOUNTER → 2022-03-10 | Outpatient (CLI) | payer MEDICARE ==
[2022-03-10 15:49] LABS: Basophils # (A) 0.1 k/uL (0-0.2); Basophils % (A) 2 %; Eosinophils # (A) 0.1 k/uL (0-0.7); Eosinophils % (A) 2 %; HCT 39.5 % (34.0-46.0); HGB 12.2 gm/dL (11.4-16.0); Lymphocytes # (A) 0.4 k/uL (1.0-4.8); Lymphocytes % (A) 5 %; MCH 25.5 pg (25.0-35.0); MCHC 30.8 g/dL (31.0-37.0); MCV 82.8 fL (80.0-100.0); Mean Platelet Volume 7.2; Monocytes # (A) 0.6 k/uL (0-1.0); Monocytes % (A) 8 %; Neutrophils # (A) 6.3 k/uL (1.3-7.7); Neutrophils % (A) 83 %; Platelet Count 216 k/uL (150-450); RBC 4.77 m/uL (3.80-5.40); RDW 14.8 % (11.5-15.5); WBC 7.6 k/uL (3.8-10.6)
[2022-03-10 15:58] LABS: ALT 54 U/L (4-34); AST 43 U/L (14-36); African American GFR (CKD) >90 (>60 ml/min/1.73 sqM); Albumin 4.3 g/dL (3.5-5.0); Albumin/Globulin Ratio 1.6; Alkaline Phosphatase 149 U/L (38-126); Anion Gap 8 mmol/L; Blood Urea Nitrogen 12 mg/dL (7-17); Calcium 9.3 mg/dL (8.4-10.2); Carbon Dioxide 30 mmol/L (22-30); Chloride 99 mmol/L (98-107); Globulin 2.7 g/dL; Glucose 113 mg/dL (74-99); Non-African American GFR(CKD) >90 (>60 ml/min/1.73 sqM); Potassium 3.6 mmol/L (3.5-5.1); Sodium 137 mmol/L (137-145); Total Bilirubin 0.6 mg/dL (0.2-1.3)
[2022-03-10 16:09] LABS: Creatine Kinase MB 0.7 ng/mL (0.0-2.4); Troponin I <0.012 ng/mL (0.000-0.034)
== END | disposition home or self-care (01) ==
LOC: LABWHC1 15:31
PROVIDERS: ATTEND Nurse Practitioner Adult Health
DX: R06.00 Dyspnea, unspecified (principal)
CPT/HCPCS: 36415; 80053; 82553; 83880; 84484; 85025; 85379

== ENCOUNTER → 2022-03-13 | Outpatient (CLI) | payer MEDICARE ==
--- NOTE | 2022-03-13 08:40 | XR ---
EXAMINATION TYPE: XR chest 2V DATE OF EXAM: 03/13/2022 COMPARISON: 06/05/2020 HISTORY: Shortness of breath TECHNIQUE: Frontal and lateral views of the chest are obtained. FINDINGS: Scattered senescent parenchymal changes noted. Hyperinflation compatible with COPD. No evidence for infiltrate. No evidence for atelectasis. Heart size is stable. Mediastinal structures are stable and grossly unremarkable. No evidence for hilar prominence. Degenerative changes dorsal spine. IMPRESSION: 1. No evidence for acute pulmonary disease.
== END | disposition home or self-care (01) ==
LOC: RADXRMAIN 08:06
PROVIDERS: ATTEND Family Medicine
DX: R06.02 Shortness of breath (principal)
CPT/HCPCS: 71046

== ENCOUNTER 2022-06-03 06:18 | Day surgery (SDC) | payer MEDICARE ==
--- NOTE | 2022-06-01 13:10 | P.HPOR ---
History of Present Illness H&P Date: 06/01/22 Chief Complaint: left thumb CMC arthritis Subjective: This is a 56 year old female that presents today for a post-operative visit after undergoing a right open carpal tunnel release and right thumb CMC tendon transfer arthroplasty on 01/28/22. She is now over 3 months out and is very happy with her result. She has full normal use of the thumb and has no complaints. She would like to schedule her left side for persistent left base of the thumb pain that is bothering her on a daily basis. Physical Examination: RUE: AIN/PIN/Radial/Ulnar/Median motor intact. Radial/Ulnar/Median SILT. 2+/4 Radial/Ulnar pulses palpated. Incisions well healed with small scab over dorsal thumb CMC incision. No purulence, fluctuance or drainage. No pain with CMC thumb range of motion. NTTP over FCR at wrist. Improved swelling/bruising. LUE: AIN/PIN/Radial/Ulnar/Median motor intact. Radial/Ulnar/Median SILT. 2+/4 Radial/Ulnar pulses palpated. Positive CMC grind with pain at base of thumb. Negative Yosvany Imaging: X-rays of the left hand demonstrate severe degenerative changes at the thumb CMC joint. Impression: 1.) S/P Right thumb CMC tendon transfer arthroplasty and right open carpal release. 2.) Left thumb CMC arthritis, severe. Plan: Diagnosis and treatment options and were discussed with the patient. She has responded well to surgery with her right thumb and wishes to proceed with left thumb CMC tendon transfer arthroplasty now that her right thumb is strong enough to rely on for a short post op period of time after her left procedure. Risks and benefits of surgery including bleeding, infection, damage to surrounding tissue, need for further surgery, residual numbness were discussed and the patient wished to go forward with surgery. -Shivam Vallejo DO Orthopedic Hand/Upper Extremity Surgeon Past Medical History Past Medical History: Asthma, Cancer, COPD, Diabetes Mellitus, GERD/Reflux, Hyperlipidemia, Hypertension, Osteoarthritis (OA), Pneumonia, Sleep Apnea/CPAP/BIPAP Additional Past Medical History / Comment(s): swelling jenny ankles and feet, emphysema, migraines, "bleeds easily", skin cancer History of Any Multi-Drug Resistant Organisms: None Reported Past Surgical History: Section, Cholecystectomy, Hernia Repair, Hysterectomy, Orthopedic Surgery Additional Past Surgical History / Comment(s): skin cancer removed from nose, rt ankle surgery x 3, surgery on upper abdomian -not sure what, jenny eyelid surgery Past Anesthesia/Blood Transfusion Reactions: Motion Sickness, Postoperative Nausea & Vomiting (PONV) Additional Past Anesthesia/Blood Transfusion Reaction / Comment(s): "I was told i bleed easy" after one surgery, severe PONV Smoking Status: Former smoker - Past Family History Mother Family Medical History: No Reported History Medications and Allergies Home Medications Medication Instructions Recorded Confirmed Type Citalopram Hydrobromide 40 mg PO QAM 10/03/17 01/22/22 History [Citalopram HBr] Albuterol Sulfate [Proair Hfa] 2 puff INHALATION RT-QID PRN 06/08/18 01/22/22 History Furosemide [Lasix] 20 mg PO DAILY 06/05/20 01/22/22 History Ibuprofen 800 mg PO TID #20 tablet 11/01/21 01/22/22 Rx methocarbamoL [Robaxin-750] 750 mg PO TID PRN #30 tablet 11/01/21 01/22/22 Rx Fiber Cap 2 cap PO HS 01/22/22 01/22/22 History Fluticasone Propion/Salmeterol 2 puff INHALATION BID 01/22/22 01/22/22 History [Advair Hfa 230-21 Mcg Inhaler] Losartan Potassium [Cozaar] 100 mg PO DAILY 01/22/22 01/22/22 History Omeprazole 40 mg PO QAM 01/22/22 01/22/22 History Simvastatin [Zocor] 40 mg PO HS 01/22/22 01/22/22 History Tiotropium [place] [Spiriva] 1 cap INHALATION DAILY 01/22/22 01/22/22 History hydroCHLOROthiazide [Hydrodiuril] 25 mg PO DAILY 01/22/22 01/22/22 History metFORMIN HCL 500 mg PO W/SUPPER 01/22/22 01/22/22 History traZODone HCL 50 mg PO HS 01/22/22 01/22/22 History HYDROcodone/APAP 5-325MG [[place] 1 tab PO Q6HR PRN 3 Days #24 tab 01/28/22 Rx 5-325] Allergies Allergy/AdvReac Type Severity Reaction Status Date / Time clarithromycin [From Biaxin] Allergy Severe Dyspnea/jessica Verified 01/28/22 06:59 h/swelling Physical Examination Osteopathic Statement: *. No significant issues noted on an osteopathic structural exam other than those noted in the History and Physical/Consult.
[2022-06-01 14:19] VITALS: BMI 34.6
[2022-06-03] MEDS ORDERED: ONDANSETRON 4 MG/2 ML VIAL ONE (06:57)
[2022-06-03 07:06] LABS: Glucose,Whole Blood 114 mg/dL (70-110)
[2022-06-03] MEDS ORDERED: LACTATED RINGERS 1,000 ML IV ONE (07:26)
[2022-06-03] MEDS ORDERED: MIDAZOLAM 2 MG/2 ML VIAL IVP ONE ×2 (07:28→07:42)
[2022-06-03] MEDS ORDERED: DEXAMETHASONE SOD PHOSPHATE 4 MG/ML 1 ML VIAL IVP ONE (07:29)
[2022-06-03] MEDS ORDERED: HYDROmorphone 0.5 MG/0.5 ML SYRINGE IVP PRN (07:51)
[2022-06-03] MEDS ORDERED: LACTATED RINGERS 1,000 ML IV SCH (07:51)
[2022-06-03] MEDS ORDERED: ONDANSETRON 4 MG/2 ML VIAL IVP ONE (07:51)
[2022-06-03] MEDS ORDERED: DEXAMETHASONE SOD PHOSPHATE 4 MG/ML 1 ML VIAL IV ONE (07:51)
[2022-06-03] MEDS ORDERED: PROPOFOL 10 MG/ML 20 ML VIAL IV ONE (07:54)
[2022-06-03] MEDS ORDERED: fentaNYL (PF) 50 MCG/ML 2 ML AMP ONE (07:54)
[2022-06-03] MEDS ORDERED: SUCCINYLCHOLINE CHLORIDE 200 MG/10 ML VIAL IV ONE (07:54)
[2022-06-03] MEDS ORDERED: diphenhydrAMINE 50 MG/ML 1 ML VIAL ONE (07:54)
[2022-06-03] MEDS ORDERED: PHENYLEPHRINE-0.9% NACL SYG 1,000 MCG/10 ML SYRINGE ONE (07:54)
[2022-06-03] MEDS ORDERED: KETAMINE 10 MG/ML 20 ML VIAL ONE (07:54)
[2022-06-03] MEDS ORDERED: ROPIVACAINE 5 MG/ML 30 ML VIAL ONE (07:54)
--- NOTE | 2022-06-03 08:46 | P.ANPRN ---
Procedure Note - Anesthesia - Nerve Block Performed Left Axillary Time Out Performed: Yes (07:41) Date of Procedure: 06/03/22 Procedure Start Time: Procedure Stop Time: :50 Location of Patient: PreOp Indication: Acute Post-Operative Pain, Requested by Surgeon (Dr Vallejo) Sedation Type: Sedate with meaningful contact maintained Preparation: Sterile Prep Position: Supine Catheter: None Needle Types: Pajunk Needle Gauge: Other (see comment) (22g) Ultrasound used to visualize needle placement: Yes Ultrasound used to observe medication spread: Yes Injectate: 0.5% Ropivacaine (see comment for volume) (22cc) Blood Aspirated: No Pain Paresthesia on Injection Noted: No Resistance on Injection: Normal Image Stored and Saved: Yes Events: Uneventful and Well Tolerated
[2022-06-03 09:21] VITALS: TEMP 96.8
--- NOTE | 2022-06-03 09:24 | P.OP ---
Date of Procedure: 06/03/22 Preoperative Diagnosis: Left thumb CMC arthritis Postoperative Diagnosis: Left thumb CMC arthritis Procedure(s) Performed: Left thumb CMC tendon transfer arthroplasty with trapezium resection Anesthesia: regional Surgeon: Shivam Vallejo Customer Care Agent #1: Elder Hutson Estimated Blood Loss (ml): 5 Pathology: none sent Condition: stable Disposition: PACU Description of Procedure: This is a 57 year old female who presents today for a left thumb CMC tendon transfer arthroplasty after having failed conservative treatment in the past. Risks and benefits of surgery were discussed with the patient including bleeding, damage to surrounding tissue, infection, need to convert to open procedure, need for further surgery as well as risks of anesthesia including pulmonary embolism and even and the patient wished to proceed with surgical intervention. The patients was seen in the pre-operative area by myself. Consent and H&P were completed and updated. The correct extremity was marked in the pre-operative area by myself and all other questions were answered . Patient received a pre-operative block by the department of anesthesia. Operative Narrative: The patient was brought to the operating room by the department of anesthesia . They remained on the portable stretcher and a rolling hand table was brought to the side of the operative extremity. Pre-operative time out was performed indicating the correct patient, procedure and laterality. All in the room agreed. The patient was then drifted off to sleep by the department of anesthesia. A nonsterile tourniquet was then applied to the operative extremity and the left upper extremity was then prepped and draped in normal sterile fashion. The operative extremity was the exsanguinated with an esmarch bandage and the tourniquet was inflated to 250mmHg. Attention was then charo to the thumb CMC joint. Longitudinal incision was made over the left thumb CMC joint with a 15 blade scalpel. Blunt dissection was taken down to subcutaneous tissues with littler scissors taking care to preserve the branches of the superficial radial nerve. Dorsal radial artery was identified proximally in the incision and protected throughout the procedure. Scalpel was then made to incise the thumb CMC joint creating full thickness flaps off of the proximal metacarpal base and trapezium, this plane was further developed with a periosteal elevator. Elevator was then utilized to identify the thumb CMC joint and scaphotrapezial joint. Rongeur was then used to excise the trapezium in a piecemeal fashion. After trapeziectomy was performed FCR tendon was identified at the floor of the bed where the trapezium previously was located and the dorsal base of the thumb metacarpal was drilled with a 2.0 drill bit followed by a 3.5 drill bit. Rongeur was used to make a small groove at the dorsal base of metacarpal. Attention was then drawn to the volar wrist. Incision was made over FCR tendon distally and proximally at the level of the musculotendinous junction. FCR sheath was then opened and widened with a small hemostat. 3-0 Ethibond was then used to rea the FCR tendon in half and the ulnar half of FCR tendon was harvested and sharply dissected by passing the 3-0 ethibond through the proximal incision and then sharply cutting the proximal portion of the tendon. The ulnar half of the FCR tendon was then passed through the FCR sheath and separation from the radial half of the tendon was carried all the way down it's insertion at the index metacarpal base. Loop was made with 3-0 suture through previously made drill holes and the FCR tendon was passed through the drill hole at the base of the first metacarpal and tensioned appropriately. 4-0 Ethibond was then used to suture the FCR tendon to itself in a figure of 8 fashion, this was repeated twice. 90 degree curved hemostat was then used to wrap the FCR tendon around itself and secured with multiple 4-0 ethibond figure of 8 stitches. The wound was then irrigated. Capsular closure was performed with 4-0 monocryl. Skin was closed with running 4-0 nylon sutures. Sterile dressing consisting of adaptic and, 4x4s cast padding, and a thumb spica plaster splint was applied. Tourniquet was let down and the hand had brisk cap refill and normal perfusion immediately. The patient was then woken by the department of anesthesia and transferred to PACU in stable condition. Elder SON was present for the case and assisted in the major portions of the case. Shivam Vallejo D.O. Orthopedic Hand/Upper Extremity Surgeon
[2022-06-03 10:34] VITALS: RESP 20
[2022-06-03] MEDS ORDERED: Acetaminophen-Codeine 300-30mg TAB ONE (10:40)
[2022-06-03] MEDS ORDERED: Acetaminophen-Codeine 300-30mg TAB PO ONE (10:45)
[2022-06-03 11:09] VITALS: BP 126/74; PULSE 69
== END 2022-06-03 11:25 | disposition home or self-care (01) ==
LOC: OR 06:18
PROVIDERS: ATTEND Orthopaedic Surgery Hand Surgery
DX: M18.12 Unilateral primary osteoarthritis of first carpometacarpal joint, left hand (principal); G89.18 Other acute postprocedural pain; E11.69 Type 2 diabetes mellitus with other specified complication; E78.5 Hyperlipidemia, unspecified; K21.9 Gastro-esophageal reflux disease without esophagitis; I10 Essential (primary) hypertension; G47.33 Obstructive sleep apnea (adult) (pediatric); J43.9 Emphysema, unspecified; G43.909 Migraine, unspecified, not intractable, without status migrainosus; Z85.828 Personal history of other malignant neoplasm of skin; Z90.49 Acquired absence of other specified parts of digestive tract; Z87.891 Personal history of nicotine dependence; Z79.899 Other long term (current) drug therapy; Z79.51 Long term (current) use of inhaled steroids; Z79.1 Long term (current) use of non-steroidal anti-inflammatories (NSAID); Z79.84 Long term (current) use of oral hypoglycemic drugs; Z88.3 Allergy status to other anti-infective agents; Z88.5 Allergy status to narcotic agent
CPT/HCPCS: 64415; 76942; 25447; 26480; J2250; J0330; J1200; J1100; J0690; J3010; J2795; J2370; J2704; J1170

== ENCOUNTER → 2022-08-04 | Outpatient (CLI) | payer MEDICARE, OTHER ==
--- NOTE | 2022-08-04 10:10 | MM ---
Reason for Exam: Screening (asymptomatic). Last mammogram was performed 2 year(s) and 3 month(s) ago. Patient History: Menarche at age 12. Hysterectomy at age 31. Other cancer. Excisional Biopsy on the Right side. Excisional Biopsy on the Left side. Maternal aunt had breast cancer. Risk Values: Belkys 5 year model risk: 1.4%. NCI Lifetime model risk: 8.3%. Prior Study Comparison: 02/08/2018 Bilateral Screening Mammogram, [facility]. 05/02/2020 Bilateral Screening Mammogram, [facility]. 05/16/2020 Right Diagnostic Mammogram, [facility]. Tissue Density: The breast tissue is heterogeneously dense. This may lower the sensitivity of mammography. Findings: Analyzed By CAD. Some scattered and loosely grouped benign-appearing round calcifications bilaterally are redemonstrated. Benign-appearing bilateral axillary lymph nodes are again seen. There is no suspicious new group of microcalcifications or new distortion in either breast. Overall Assessment: Benign, BI-RAD 2 Management: Screening Mammogram of both breasts in 1 year. A clinical breast exam by your physician is recommended on an annual basis and results should be correlated with mammographic findings. Electronically signed and approved by: Ghanshyam Loco M.D.
== END | disposition home or self-care (01) ==
LOC: RADMAMWWP 09:15
PROVIDERS: ATTEND Family Medicine
DX: Z12.31 Encounter for screening mammogram for malignant neoplasm of breast (principal); Z80.3 Family history of malignant neoplasm of breast
CPT/HCPCS: 77063; 77067

== ENCOUNTER → 2022-10-01 | Outpatient (CLI) | payer MEDICARE, OTHER ==
--- NOTE | 2022-10-01 11:26 | US ---
EXAMINATION TYPE: US liver DATE OF EXAM: 10/01/2022 COMPARISON: 12/08/2021 CLINICAL HISTORY: 57-year-old female FATTY LIVER K76.0. h/o fatty liver, no symptoms, cholecystectomy TECHNIQUE: Multiple sonographic images of the right upper quadrant are obtained. FINDINGS: EXAM MEASUREMENTS: Liver Length: 22.4 cm Gallbladder: Surgically absent CBD: 0.7 cm, CHD: 3 mm. Right Kidney: 11.8 x 4.7 x 5.2 cm Pancreas: wnl Liver: enlarged, mild to moderately increased echogenicity, area of focal fatty sparing noted at por ta hepatis = 3.5cm Gallbladder: Surgically absent Evidence for sonographic De La Cruz's sign: no CBD: wnl Right Kidney: exophytic superior pole cyst = 1.9 x 1.7 x 1.3cm IMPRESSION: There is moderate hepatic steatosis and hepatomegaly at 22.4 cm. The overall degree of fatty infiltra tion may show slight improvement from 12/08/2021.
[2022-10-01 15:06] LABS: Basophils # (A) 0.08 X 10*3/uL (0.00-0.10); Basophils % (A) 0.8 %; Eosinophils # (A) 0.24 X 10*3/uL (0.04-0.35); Eosinophils % (A) 2.4 %; HCT 40.7 % (37.2-46.3); HGB 12.1 g/dL (12.0-15.0); Immature Grans, Automated 1.7 %; Lymphocytes # (A) 2.04 X 10*3/uL (0.90-5.00); Lymphocytes % (A) 20.4 %; MCH 24.9 pg (27.0-32.0); MCHC 29.7 g/dL (32.0-37.0); MCV 83.7 fL (80.0-97.0); Mean Platelet Volume 9.8 fL (9.5-12.2); Monocytes # (A) 0.74 X 10*3/uL (0.20-1.00); Monocytes % (A) 7.4 %; NRBC Per 100 WBC 0 /100 WBCS (0.0-0.0); Neutrophils # (A) 6.71 X 10*3/uL (1.80-7.70); Neutrophils % (A) 67.3 %; Platelet Count 293 X 10*3/uL (140-440); RBC 4.86 X 10*6/uL (4.10-5.20); RDW 14.8 % (11.5-14.5); WBC 9.98 X 10*3/uL (4.50-10.00)
[2022-10-01 15:31] LABS: African American GFR (CKD) 117.6 (60.0-200.0); Albumin 4.1 g/dL (3.8-4.9); Albumin/Globulin Ratio 1.96 (1.60-3.17); Anion Gap 9.9 mmol/L (10.00-18.00); BUN/Creat Ratio 13.32 Ratio (12.00-20.00); Blood Urea Nitrogen 7.8 mg/dL (9.0-27.0); Calcium 9.1 mg/dL (8.7-10.3); Globulin 2.1 g/dL (1.6-3.3); Non-African American GFR(CKD) 101.5 (60.0-200.0); Potassium 4.3 mmol/L (3.5-5.5); Total Bilirubin 0.3 mg/dL (0.30-1.20); Total Protein 6.2 g/dL (6.2-8.2)
== END | disposition home or self-care (01) ==
LOC: RADUSWWP 08:20
PROVIDERS: ATTEND Internal Medicine Gastroenterology
DX: K76.0 Fatty (change of) liver, not elsewhere classified (principal); R16.0 Hepatomegaly, not elsewhere classified; Z90.49 Acquired absence of other specified parts of digestive tract
CPT/HCPCS: 76705; 80053; 85025

== ENCOUNTER → 2022-11-18 | Outpatient (CLI) | payer MEDICARE, OTHER ==
--- NOTE | 2022-11-18 12:11 | XR ---
EXAMINATION TYPE: XR lumbar spine 2 or 3V DATE OF EXAM: 11/18/2022 11:59 AM INDICATION: Patient age:Female; 57 years old; Reason for study: M54.50; [facility]. COMPARISON: Multiple lumbar spine radiographs TECHNIQUE: Frontal, lateral and coned in L5-S1 lateral views of the spine. FINDINGS: No evidence of any acute osseous pathology. No evidence of loss of vertebral body height i s seen. Mild dextroscoliosis alignment apex L3. Mild scattered disc space narrowing. Multilevel gayla nal osteophyte formation throughout the visualized spine. There is facet joint arthropathy throughout the spine. Scattered at least mild neural foraminal stenosis. Atherosclerosis of the arterial vascul ature. IMPRESSION: 1. No acute fracture. 2. Mild multilevel disc degeneration.
== END | disposition home or self-care (01) ==
LOC: RADXRMAIN 10:35
PROVIDERS: ATTEND Nurse Practitioner Family
DX: M51.36 Other intervertebral disc degeneration, lumbar region (principal)
CPT/HCPCS: 72100

== ENCOUNTER → 2023-03-30 | Outpatient (CLI) | payer MEDICARE, OTHER ==
[2023-03-30 15:14] LABS: Basophils # (A) 0.08 X 10*3/uL (0.00-0.10); Basophils % (A) 0.9 %; Eosinophils # (A) 0.16 X 10*3/uL (0.04-0.35); Eosinophils % (A) 1.8 %; HCT 41.3 % (37.2-46.3); HGB 12.5 g/dL (12.0-15.0); Immature Grans, Automated 0.9 %; Lymphocytes # (A) 1.95 X 10*3/uL (0.90-5.00); Lymphocytes % (A) 22.5 %; MCH 25.4 pg (27.0-32.0); MCHC 30.3 g/dL (32.0-37.0); MCV 83.8 fL (80.0-97.0); Monocytes # (A) 0.75 X 10*3/uL (0.20-1.00); Monocytes % (A) 8.7 %; NRBC Per 100 WBC 0 /100 WBCS (0.0-0.0); Neutrophils # (A) 5.65 X 10*3/uL (1.80-7.70); Neutrophils % (A) 65.2 %; Platelet Count 290 X 10*3/uL (140-440); RBC 4.93 X 10*6/uL (4.10-5.20); RDW 14.2 % (11.5-14.5); WBC 8.67 X 10*3/uL (4.50-10.00)
[2023-03-30 16:09] LABS: African American GFR (CKD) 110.7 (60.0-200.0); Albumin 4.5 g/dL (3.8-4.9); Albumin/Globulin Ratio 1.96 (1.60-3.17); Anion Gap 14.4 mmol/L (10.00-18.00); BUN/Creat Ratio 15.86 Ratio (12.00-20.00); Blood Urea Nitrogen 11.1 mg/dL (9.0-27.0); Calcium 9.7 mg/dL (8.7-10.3); Carbon Dioxide 28.6 mmol/L (20.0-27.5); Globulin 2.3 g/dL (1.6-3.3); Non-African American GFR(CKD) 95.5 (60.0-200.0); Potassium 3.6 mmol/L (3.5-5.5); Total Bilirubin 0.2 mg/dL (0.30-1.20); Total Protein 6.8 g/dL (6.2-8.2)
== END | disposition home or self-care (01) ==
LOC: LABWHC1 10:22
PROVIDERS: ATTEND Nurse Practitioner Family
DX: K76.0 Fatty (change of) liver, not elsewhere classified (principal)
CPT/HCPCS: 36415; 80053; 85025

== ENCOUNTER → 2023-04-29 | Outpatient (CLI) | payer MEDICARE, OTHER ==
--- NOTE | 2023-04-29 12:56 | US ---
EXAMINATION TYPE: US liver DATE OF EXAM: 04/29/2023 COMPARISON: 10/01/2022 CLINICAL INDICATION: Female, 57 years old with history of K76.0FATTY (CHANGE OF) LIVER, NOT ELSEWHERE CLASSI; fatty liver TECHNIQUE: Multiple sonographic images of the right upper quadrant are obtained. FINDINGS: EXAM MEASUREMENTS: Liver Length: 16.2 cm Gallbladder Wall: Surgically absent cm CBD: .33 cm Right Kidney: 12.7x4.1x4.4 cm SHEETFED PRESS OPERATOR NOTES: Pancreas: appears very slightly heterogenous with slightly dilated duct Liver: enlarged, caudate lobe enlarged, fatty sparring from last exam not seen on today's ultrasound Gallbladder: Surgically absent CBD: wnl Right Kidney: anechoic area again seen on mid/medial cortex: 1.7x1.1x1.2cm exam technically difficult due to body habitus Similar appearance of the pancreas from prior examination. The liver is enlarged with caudate lobe hy pertrophy. Previously seen fatty sparing is not visualized. Gallbladder surgically absent. Common jenny e duct within normal limits. No hydronephrosis or nephrolithiasis involving the right kidney. No car d lesion. Redemonstration of a thin wall cyst within the mid/medial cortex of the right kidney measur ing up to 1.7 cm. IMPRESSION: 1. No acute process. Next line 2. Hepatomegaly with previously seen fatty sparing not visualized on today's exam. Improved appearanc e of previously seen hepatic steatosis. 3. Post cholecystectomy changes. 4. Stable simple-appearing right renal cyst.
== END | disposition home or self-care (01) ==
LOC: RADUSWWP 11:59
PROVIDERS: ATTEND Internal Medicine Gastroenterology
DX: N28.1 Cyst of kidney, acquired (principal); K76.0 Fatty (change of) liver, not elsewhere classified; Z90.49 Acquired absence of other specified parts of digestive tract
CPT/HCPCS: 76705

== ENCOUNTER → 2023-09-28 | Outpatient (CLI) | payer MEDICARE, OTHER ==
--- NOTE | 2023-09-29 08:42 | MM ---
Reason for Exam: Screening (asymptomatic). Last mammogram was performed 1 year(s) and 1 month(s) ago. Patient History: Menarche at age 12. First Full-Term at age 17. Hysterectomy at age 31. Postmenopausal. Other cancer. Excisional Biopsy on the Right side. Excisional Biopsy on the Left side. Maternal aunt had breast cancer. Risk Values: Belkys 5 year model risk: 1.5%. NCI Lifetime model risk: 8.1%. Prior Study Comparison: 05/02/2020 Bilateral Screening Mammogram, [facility]. 05/16/2020 Right Diagnostic Mammogram, [facility]. 08/04/2022 Bilateral MG 3D screening mammo w/cad, [facility]. Tissue Density: The breast tissue is heterogeneously dense. This may lower the sensitivity of mammography. Findings: Analyzed By CAD. There is no suspicious group of microcalcifications or new suspicious mass. Benign-appearing calcifications bilaterally. Overall Assessment: Benign, BI-RAD 2 Management: Screening Mammogram of both breasts in [address] [facility] will attempt to contact patient to return for supplemental views and ultrasound if indicated. Patient should continue monthly self-breast exams. A clinical breast exam by your physician is recommended on an annual basis. This exam should not preclude additional follow-up of suspicious palpable abnormalities. Note on Belkys scores and lifetime risk: 1. A Belkys score greater than 3% is considered moderate risk. If this is the case, consider specialist referral to assess eligibility for a risk reducing agent. 2. If overall lifetime risk for the development of breast cancer is 20% or higher, the patient may qualify for future screening with alternating mammogram and breast MRI. Electronically signed and approved by: Chauncey Matthews DO
== END | disposition home or self-care (01) ==
LOC: RADMAMWWP 07:37
PROVIDERS: ATTEND Family Medicine
DX: Z12.31 Encounter for screening mammogram for malignant neoplasm of breast (principal); Z78.0 Asymptomatic menopausal state; Z80.3 Family history of malignant neoplasm of breast
CPT/HCPCS: 77063; 77067

== ENCOUNTER → 2023-09-28 | Outpatient (CLI) | payer MEDICARE, OTHER ==
[2023-09-28 11:02] LABS: Eosinophils # (A) 0.21 X 10*3/uL (0.04-0.35); HGB 12.5 g/dL (12.0-15.0); Lymphocytes # (A) 2.28 X 10*3/uL (0.90-5.00); Lymphocytes % (A) 21.9 %; MCH 26.2 pg (27.0-32.0); MCHC 31.3 g/dL (32.0-37.0); MCV 83.7 FL (80.0-97.0); Mean Platelet Volume 10.1 FL (9.5-12.2); Monocytes # (A) 0.88 X 10*3/uL (0.20-1.00); Monocytes % (A) 8.5 %; NRBC Per 100 WBC 0 X 10*3/uL (0.00-0.01); Neutrophils # (A) 6.82 X 10*3/uL (1.80-7.70); Neutrophils % (A) 65.6 %; Platelet Count 311 X 10*3/uL (140-440); RBC 4.78 X 10*6/uL (4.10-5.20); RDW 14.3 % (11.5-14.5); WBC 10.39 X 10*3/uL (4.50-10.00)
[2023-09-28 11:14] LABS: ALT 22 U/L (8-44); AST 16 U/L (13-35); Alkaline Phosphatase 137 U/L (41-126); Blood Urea Nitrogen 18.9 mg/dL (9.0-27.0); Calcium 9.4 mg/dL (8.7-10.3); Carbon Dioxide 28.8 mmol/L (21.6-31.8); Chloride 104 mmol/L (96-109); Glucose 91 mg/dL (70-110); Potassium 3.4 mmol/L (3.5-5.5); Sodium 142 mmol/L (135-145); Total Bilirubin 0.3 mg/dL (0.3-1.2)
== END | disposition home or self-care (01) ==
LOC: LABWHC1 07:55
PROVIDERS: ATTEND Internal Medicine Gastroenterology
DX: K76.0 Fatty (change of) liver, not elsewhere classified (principal)
CPT/HCPCS: 36415; 80053; 85025

== ENCOUNTER → 2023-10-22 | Outpatient (CLI) | payer MEDICARE, OTHER ==
--- NOTE | 2023-10-22 12:21 | FL ---
EXAMINATION TYPE: FL barium swallow DATE OF EXAM: 10/22/2023 CLINICAL INDICATION: 58-year-old female R1 3.10, unspecified dysphasia, losing voice, trouble swallow ing medication tablets. COMPARISON: None Total Fluoroscopy Time: 2 minutes 3 seconds Total DAP: 433.75 mGycm2 46 images obtained. FINDINGS: The swallowing mechanism is normal. There is moderate hypertrophy of the cricopharyngeus but otherwis e, hypopharyngeal anatomy is preserved. Thoracic portion has a normal course and caliber. There is mild to moderate esophageal dysmotility with markedly blunted secondary stripping waves and retained contrast in the esophagus especially when the patient is prone or supine. Delayed clearance when upright. No hernia is identified. Unable to elicit any gastroesophageal reflux during the course of the exam. IMPRESSION: 1. Moderate CP muscle hypertrophy. Correlate arrested this could be contributing to the patient's sym ptoms. 2. Mild to moderate esophageal dysmotility with blunted secondary stripping waves. 3. No hiatal hernia or reflux identified.
== END | disposition home or self-care (01) ==
LOC: RADUSWWP 09:51
PROVIDERS: ATTEND Internal Medicine Gastroenterology
DX: K22.4 Dyskinesia of esophagus (principal); M62.89 Other specified disorders of muscle; R13.10 Dysphagia, unspecified
CPT/HCPCS: 74220

== ENCOUNTER → 2024-09-04 | Outpatient (CLI) | payer MEDICARE, OTHER ==
[2024-09-04 10:45] LABS: Basophils # (A) 0.09 X 10*3/uL (0.00-0.10); Eosinophils # (A) 0.28 X 10*3/uL (0.04-0.35); Eosinophils % (A) 3.2 %; HCT 39.6 % (37.2-46.3); HGB 12.1 g/dL (12.0-15.0); Lymphocytes % (A) 16.9 %; MCH 25.9 pg (27.0-32.0); MCHC 30.6 g/dL (32.0-37.0); MCV 84.8 FL (80.0-97.0); Mean Platelet Volume 10.1 FL (9.5-12.2); Monocytes # (A) 0.77 X 10*3/uL (0.20-1.00); Monocytes % (A) 8.7 %; NRBC Per 100 WBC 0 X 10*3/uL (0.00-0.01); Neutrophils # (A) 6.08 X 10*3/uL (1.80-7.70); Neutrophils % (A) 68.6 %; Platelet Count 284 X 10*3/uL (140-440); RBC 4.67 X 10*6/uL (4.10-5.20); RDW 14.5 % (11.5-14.5); WBC 8.86 X 10*3/uL (4.50-10.00)
[2024-09-04 10:57] LABS: Erythrocyte Sedimentation Rate 8 mm/Hr (0-30)
[2024-09-04 11:03] LABS: ALT 19 U/L (8-44); AST 18 U/L (13-35); Albumin 4.5 g/dL (3.8-4.9); Albumin/Globulin Ratio 1.96 Ratio (1.60-3.17); Alkaline Phosphatase 154 U/L (41-126); BUN/Creat Ratio 20.71 Ratio (12.00-20.00); Blood Urea Nitrogen 14.5 mg/dL (9.0-27.0); Calcium 9.9 mg/dL (8.7-10.3); Carbon Dioxide 27.7 mmol/L (21.6-31.8); Chloride 100 mmol/L (96-109); Globulin 2.3 g/dL (1.6-3.3); Glucose 95 mg/dL (70-110); Potassium 3.4 mmol/L (3.5-5.5); Sodium 140 mmol/L (135-145); Total Bilirubin 0.3 mg/dL (0.3-1.2); Total Protein 6.8 g/dL (6.2-8.2)
[2024-09-04 14:18] LABS: Prealbumin 26.2 mg/dL (18.0-42.0)
== END | disposition home or self-care (01) ==
LOC: LABWHC1 08:02
PROVIDERS: ATTEND Podiatrist
DX: S91.001D Unspecified open wound, right ankle, subsequent encounter (principal)
CPT/HCPCS: 36415; 80053; 84134; 85025; 85652

== ENCOUNTER 2024-12-06 14:15 | Emergency (ER) | payer MEDICARE, OTHER ==
--- NOTE | 2024-12-06 14:35 | ED ---
General Adult HPI - General Chief complaint: Extremity Injury, Lower Stated complaint: rt leg injury Time Seen by Provider: 12/06/24 14:20 Source: patient, RN notes reviewed, old records reviewed Mode of arrival: ambulatory Limitations: no limitations - History of Present Illness Initial comments: This is a 59-year-old female who presents to the emergency department with previous right foot surgery. Patient states she went out side today slipped on the ice and hurt her right ankle. Patient states the ankle on both sides is painful and she believes swollen. Patient states she is unable to stand on it. Patient denies any upper leg pain. Patient has any knee or hip pain. Patient has hitting her head or neck. Patient has no other complaints. - Related Data Home Medications Medication Instructions Recorded Confirmed Citalopram Hydrobromide 40 mg PO QAM 10/03/17 06/03/22 [Citalopram HBr] Albuterol Sulfate [Proair Hfa] 2 puff INHALATION RT-QID PRN 06/08/18 06/03/22 Furosemide [Lasix] 20 mg PO DAILY 06/05/20 06/03/22 Fiber Cap 5 cap PO QAM 01/22/22 06/03/22 Fluticasone Propion/Salmeterol 2 puff INHALATION BID 01/22/22 06/03/22 [Advair Hfa 230-21 Mcg Inhaler] Losartan Potassium [Cozaar] 100 mg PO QAM 01/22/22 06/03/22 Omeprazole 40 mg PO QAM 01/22/22 06/03/22 Simvastatin [Zocor] 40 mg PO HS 01/22/22 06/03/22 Tiotropium Eden [Spiriva] 1 cap INHALATION QAM 01/22/22 06/03/22 hydroCHLOROthiazide [Hydrodiuril] 25 mg PO DAILY 01/22/22 06/03/22 metFORMIN HCL 500 mg PO W/SUPPER 01/22/22 06/03/22 traZODone HCL 50 mg PO HS 01/22/22 06/03/22 Sucralfate [Carafate] 1 gm PO ACHS 06/01/22 06/03/22 amLODIPine [Norvasc] 10 mg PO QAM 06/01/22 06/03/22 Previous Rx's Medication Instructions Recorded Acetaminophen-Codeine 300-30mg 1 tab PO Q6H PRN 3 Days #24 tablet 06/03/22 [Tylenol w/codeine #3] Allergies Allergy/AdvReac Type Severity Reaction Status Date / Time clarithromycin [From Biaxin] Allergy Severe Dyspnea/jessica Verified 12/06/24 14:21 h/swelling hydrocodone Allergy Dyspnea Verified 12/06/24 14:21 Review of Systems ROS Statement: Those systems with pertinent positive or pertinent negative responses have been documented in the HPI. ROS Other: All systems not noted in ROS Statement are negative. Past Medical History Past Medical History: Asthma, Cancer, COPD, Diabetes Mellitus, GERD/Reflux, Hyperlipidemia, Hypertension, Osteoarthritis (OA), Pneumonia, Sleep Apnea/CPAP/BIPAP Additional Past Medical History / Comment(s): swelling jenny ankles and feet, emphysema, migraines, "bleeds easily", skin cancer,no cpap History of Any Multi-Drug Resistant Organisms: None Reported Past Surgical History: Section, Cholecystectomy, Hernia Repair, Hysterectomy, Orthopedic Surgery Additional Past Surgical History / Comment(s): rt thumb tendon procedure,skin cancer removed from nose, rt ankle surgery x 3, surgery on upper abdomian -not sure what, jenny eyelid surgery Past Anesthesia/Blood Transfusion Reactions: Motion Sickness, Postoperative Na usea & Vomiting (PONV) Additional Past Anesthesia/Blood Transfusion Reaction / Comment(s): "I was told i bleed easy" after one surgery, severe PONV,headache,no problems with prior blood transfusion Past Psychological History: Depression Smoking Status: Former smoker Past Alcohol Use History: None Reported Past Drug Use History: None Reported - Past Family History Mother Family Medical History: No Reported History General Exam - General Exam Comments Initial Comments: GENERAL Patient is well-developed and well-nourished. Patient is in mild distress. EYES Patient's pupils are equal and round. Extraocular motion is intact SKIN Unremarkable NEURO The patient is alert and oriented A&Ox3 PYSCH Patient has normal interpersonal interactions. MUSCULOSKELETAL Right ankle is tender both the lateral and medial malleolus. Both areas are swollen Limitations: no limitations Course Vital Signs 12/06/24 12/06/24 12/06/24 14:18 17:02 17:05 Temperature 98.1 F Pulse Rate 82 72 71 Respiratory 20 18 18 Rate Blood Pressure 114/67 118/72 126/68 O2 Sat by Pulse 99 100 100 Oximetry 0212/06/24 12/06/24 17:10 17:12 17:15 Temperature Pulse Rate 67 68 67 Respiratory 18 17 17 Rate Blood Pressure 138/73 115/57 118/56 O2 Sat by Pulse 100 95 95 Oximetry 12/06/24 12/06/24 12/06/24 17:30 17:45 18:00 Temperature Pulse Rate 71 70 69 Respiratory 17 16 17 Rate Blood Pressure 124/73 138/75 131/71 O2 Sat by Pulse 95 95 95 Oximetry Procedures - Orthopedic Fracture Reduction Fracture #1 Consent Obtained: verbal consent Side: right Fracture Reduction Location: tibia, fibula Analgesia: procedural sedation Technique: direct manipulation Post-Reduction Neuro Exam: intact Post-Reduction Vascular Exam: intact Splint Applied: Yes Patient Tolerated Procedure: well - Orthopedic Splinting/Casting Injury #1 Side: right Lower Extremity Injury Location: short leg Lower Extremity Immobilizer: posterior splint Other Orthopedic Equipment: crutches - Procedural Sedation *Procedural Sedation Start Time: 17:05 *Procedural Sedation Stop Time: 17:30 *Risks,benefits, and alternative therapies discussed?: Yes *Patient indicates understanding of risk/benefit discussion?: Yes *Indications: fracture/dislocation reduction *Previous Adverse Reaction to Anesthesia/Sedation?: No * Testing Complete?: No Reason Test Not Complete:: Emergent Situation *ASA Class: II *Mallampati Airway Score: 2 Preparation: case monitor applied, pulse oximeter, capnometry used, supplemental O2 applied, suction/airway equipment at bedside IV Etomidate Dose (mgs): 125 Complications: none Patient Tolerated Procedure: well Medical Decision Making - Medical Decision Making Was pt. sent in by a medical professional or institution (Dr. PA, APPOINTMENT CLERK, urgent care, hospital, or [place] [facility] facility...) When possible be specific @ -No Did you speak to anyone other than the patient for history (EMS, parent, family, police, friend...)? What history was obtained from this source @ -No Did you review nursing and triage notes (agree or disagree)? Why? @ -I reviewed and agree with nursing and triage notes Were old charts reviewed (outside hosp., previous admission, EMS record, old EKG, old radiological studies, urgent care reports/EKG's, [place] [facility] facility records)? Report findings @ -No old charts were reviewed Differential Diagnosis? @ -Differential Musculoskeletal Muscular strain, contusion, ligament sprain, fracture, arthritis, septic arthritis, bursitis, cellulitis, muscle spasm, nerve compression, DVT, arterial occlusion, herpes zoster, electrolyte abnormality, tumor.... This is not meant to be in all inclusive list EKG interpreted by me (3pts min.). @ -As above X-rays interpreted by me (1pt min.). @ -X-ray of the ankle shows a displaced distal fibula and tibia fracture. Po streduction films show much better alignment but not completely anatomical CT interpreted by me (1pt min.). @ -None done U/S interpreted by me (1pt. min.). @ -None done What testing was considered but not performed or refused? (CT, X-rays, U/S, labs)? Why? @ -None What meds were considered but not given or refused? Why? @ -None Did you discuss the management of the patient with other professionals (professionals i.e. DrJonathan, PA, APPOINTMENT CLERK, lab, RT, psych nurse, manager social responsibility, instructor ground services, teacher, chief contract officer, rn case manager)? Give summary @ -I spoke with Dr. Brown and he wanted the patient to follow-up with Dr. Ac tomorrow Was smoking cessation discussed for >3mins.? @ -No Was critical care preformed (if so, how long)? @ -No Were there social determinants of health that impacted care today? How? (Homelessness, low income, unemployed, alcoholism, drug addiction, transportation, low edu. Level, literacy, decrease access to med. care, [facility], rehab)? @ -No Was there de-escalation of care discussed even if they declined (Discuss DNR or withdrawal of care, Hospice)? DNR status @ -No What co-morbidities impacted this encounter? (DM, HTN, Smoking, COPD, CAD, Cancer, CVA, ARF, Chemo, Hep., AIDS, mental health diagnosis, sleep apnea, morbid obesity)? @ -None Was patient admitted / discharged? Hospital course, mention meds given and route, prescriptions, significant lab abnormalities, going to OR and other pertinent info. @ -I reduced the ankle under conscious sedation and I placed the patient in an OCL splint patient will follow-up tomorrow and she will remain on crutches nonweightbearing until then Undiagnosed new problem with uncertain prognosis? @ -No Drug Therapy requiring intensive monitoring for toxicity (Heparin, Nitro, Insulin, Cardizem)? @ -No Were any procedures done? @ -No Diagnosis/symptom? @ -Distal tib-fib fracture Acute, or Chronic, or Acute on Chronic? @ -Acute Uncomplicated (without systemic symptoms) or Complicated (systemic symptoms)? @ -Complicated Side effects of treatment? @ -No Exacerbation, Progression, or Severe Exacerbation? @ -No Poses a threat to life or bodily function? How? (Chest pain, USA, MS, pneumonia, PE, COPD, DKA, ARF, appy, cholecystitis, CVA, Diverticulitis, Homicidal, Suicidal, threat to staff... and all critical care pts) @ -No Disposition Clinical Impression: Fracture of distal end of tibia with fibula Disposition: HOME SELF-CARE Condition: Good Instructions (If sedation given, give patient instructions): Moderate Sedation (ED), Ankle Fracture (ED) Is patient prescribed a controlled substance at d/c from ED?: No Referrals: Yaya Ac DPM [Doctor of Osteopathic Medicine] - 1-2 days Time of Disposition: 17:58
--- NOTE | 2024-12-06 15:24 | XR ---
EXAMINATION TYPE: XR ankle limited RT DATE OF EXAM: 12/06/2024 3:02 PM COMPARISON: None CLINICAL INDICATION: Female, 59 years old with history of right ankle injury, pain TECHNIQUE: XR ankle limited RT; frontal, lateral and oblique projections. FINDINGS/IMPRESSION: 1. There is fracture through the distal tibia and fibula with associated soft tissue swelling. Consi antionette further evaluation with CT. 2. Extensive surgical changes to the right foot with hardware in place throughout the midfoot hindfo ot and forefoot. Hardware appears intact [facility], , 12/06/2024 3:22 PM
[2024-12-06] MEDS: KETOROLAC 15 MG/ML 1 ML VIAL IVP STA (15:33)
[2024-12-06] MEDS: HYDROmorphone 0.5 MG/0.5 ML SYRINGE IVP STA (15:35)
[2024-12-06] MEDS: PROPOFOL 10 MG/ML 20 ML VIAL IV ONE ×2 (17:05→17:45)
--- NOTE | 2024-12-06 18:00 | XR ---
EXAMINATION TYPE: XR ankle limited RT DATE OF EXAM: 12/06/2024 5:24 PM COMPARISON: Same day CLINICAL INDICATION: Female, 59 years old with history of Fall; PHH, pain TECHNIQUE: XR ankle limited RT; frontal, lateral projections. FINDINGS/IMPRESSION: 1. Improved anatomic alignment with persistent medial malleolus and distal fibular fracture. 2. No new fractures visualized. [facility], , 12/06/2024 5:58 PM
[2024-12-06] MEDS: ACET/COD 300 MG/30 MG STARTER PACK 6 TAB BTL PO STA (19:27)
[2024-12-06] MEDS: IBUPROFEN 600 MG STARTER PACK 4 TAB BTL PO STA (19:28)
[2024-12-06 19:36] VITALS: BP 133/70; PULSE 70; RESP 20; TEMP 98.6
== END 2024-12-06 19:36 | disposition home or self-care (01) ==
LOC: EC 14:15
DX: S82.301A Unspecified fracture of lower end of right tibia, initial encounter for closed fracture (principal); Z87.891 Personal history of nicotine dependence; Z88.1 Allergy status to other antibiotic agents; Z88.5 Allergy status to narcotic agent; W00.0XXA Fall on same level due to ice and snow, initial encounter
CPT/HCPCS: 96376 ×2; 96374 ×2; 96375 ×2; 99284 ×2; 99152 ×2; 99153 ×2; 27825; 73600; 27752; J1885; J2704; J1171; 27788

== ENCOUNTER 2024-12-22 05:57 | Observation (INO) | payer MEDICARE, OTHER ==
[2024-12-20 12:16] VITALS: BMI 32.0
[2024-12-22 06:39] LABS: Glucose,Whole Blood 125 mg/dL (70-110)
[2024-12-22] MEDS: IV FLUID CONTINUATION 1,000 ML IV ONE (06:50)
[2024-12-22] MEDS: LACTATED RINGERS 1,000 ML IV SCH (06:52)
[2024-12-22] MEDS: ONDANSETRON 4 MG/2 ML VIAL IVP ONE (06:53)
[2024-12-22] MEDS: DEXAMETHASONE SOD PHOSPHATE 4 MG/ML 1 ML VIAL IV ONE (06:53)
[2024-12-22] MEDS: fentaNYL (PF) 50 MCG/ML 2 ML AMP IVP STA (06:56)
[2024-12-22] MEDS: MIDAZOLAM 2 MG/2 ML VIAL IV PRN (06:56)
[2024-12-22] MEDS ORDERED: PROPOFOL 10 MG/ML 20 ML VIAL IV ONE (07:24)
[2024-12-22] MEDS ORDERED: ROPIVACAINE 5 MG/ML 30 ML VIAL ONE (07:24)
[2024-12-22] MEDS ORDERED: fentaNYL (PF) 50 MCG/ML 2 ML AMP ONE (07:24)
[2024-12-22] MEDS ORDERED: SODIUM CHLORIDE 0.9% (PF) 10 ML VIAL ONE (07:24)
[2024-12-22] MEDS ORDERED: SUCCINYLCHOLINE CHLORIDE 200 MG/10 ML VIAL IV ONE (07:24)
[2024-12-22] MEDS ORDERED: DEXAMETHASONE SOD PHOSPHATE 4 MG/ML 1 ML VIAL ONE (07:24)
[2024-12-22] MEDS ORDERED: HYDROmorphone (PF) 1 MG/ML ONE (07:24)
[2024-12-22] MEDS ORDERED: LIDOCAINE 1% INJ 10MG/ML (20 ML MDV) ONE (07:24)
[2024-12-22] MEDS: ceFAZolin 1,000 MG in SODIUM CHLORIDE 0.9% 1,000 ML IRRIGATION ONE (07:29)
[2024-12-22] MEDS: LACTATED RINGERS 1,000 ML IV ONE (08:55)
--- NOTE | 2024-12-22 09:06 | XR ---
EXAMINATION TYPE: XR ankle limited RT, [place] guidance operating room Intraoperative/procedural fluorosco pic services were provided. CLINICAL INDICATION:Female, 59 years old with history of BILMALLEOLAR FRACTURE RIGHT ANKLE; , [facility] FINDINGS: Postsurgical changes of ORIF right ankle. Distal fibular fixation plate and distal tibial fixation pl ate along the medial aspect. Multiple postsurgical changes of the foot. Hardware appears intact. No e vident complication. Total fluoroscopy time is 39.7 seconds. DAP: 0.4377 Gycm2 Please see the operative/procedural note for further details. [facility], , 12/22/2024 9:04 AM
[2024-12-22] MEDS ORDERED: MORPHINE SULFATE 2 MG/ML SYRINGE IV PRN ×2 (09:28)
[2024-12-22] MEDS: HYDROmorphone 0.5 MG/0.5 ML SYRINGE IVP PRN (09:46)
[2024-12-22 10:55] LABS: Glucose,Whole Blood 144 mg/dL (70-110)
[2024-12-22] MEDS: SCOPOLAMINE 1 MG/72 HR PATCH TRANSDERM ONE (11:18)
[2024-12-22] MEDS: HYDROcodone/APAP 5-325MG 1 EACH TAB PO PRN ×2 (11:22→22:49)
--- NOTE | 2024-12-22 11:30 | P.OP ---
Date of Procedure: 12/22/24 Preoperative Diagnosis: 1. Displaced right bimalleolar ankle fracture 2. Ruptured syndesmosis right ankle Postoperative Diagnosis: 1. Same 2. Same Procedure(s) Performed: 1. Open reduction with internal fixation right bimalleolar ankle fracture 2. Open reduction with internal fixation right syndesmotic rupture Implants: Arthrex stainless steel precontoured lateral malleoli are plate with 3.5 locking and nonlocking screws and 3.0 locking and nonlocking screws Arthrex medial malleolus hook plate with 3.5 mm locking and nonlocking screws Anesthesia: IMELDA Surgeon: Yaya Ac Estimated Blood Loss (ml): 20 Pathology: none sent Condition: stable Disposition: PACU Description of Procedure: Prior to the patient being brought to the operating room, anesthesia administered a nerve block on the right lower extremity. The patient was brought into the op room and placed on table in supine position. Timeout was taken to confirm correct patient identifiers, correct laterality of surgery, and correct procedure. Once all staff in the room was in agreement with the timeout, the patient was induced and placed under general anesthesia. A well- padded tourniquet was placed on the right thigh and a wedge beneath the left leg. The left leg was prepped and draped in usual manner. The left leg was exsanguinated, the knee flexed, and then the tourniquet inflated to 250 mmHg. Small incision was made over the fracture line. It was deepened down to the subcutaneous tissue careful to identify, void, and retracting neurovascular structures and cauterize any bleeding vessels. Exposure of the fracture was performed for the placement of the reduction clamp. Several attempts were made with a reduction clamp to realign the fracture however it was not able to be done. Therefore the original plan for the fibula canal was abandoned in favor of a more traditional approach. The lateral incision was extended along the fibula. It was deepened down to the subcutaneous tissue careful to identify, void, and retract any neurovascular structures and cauterize any bleeding vessels. The fractures were identified and all the interposing soft tissue was removed. An attempt was made to reduce the fracture however it would not reduce immediately. Further inspection noted a avulsion type fragment at the anterior lateral aspect of the ankle joint there was interposing between the talus and the fibula. Once that was removed the fibula was able to be reduced. An Arthrex precontoured lateral malleoli are plate was then positioned across the fracture. Once it was satisfactorily positioned it was temporarily fixated. Distal locking screws placed through the plate into the tip of the lateral malleolus for an anchor point. Then it is directed back to the proximal aspect of the plate where a eccentric drilling was done in the compression slot. However the drilling was done opposite to allow for some distraction of the fracture. Once drilling was performed the screw was inserted and once engaged plated provides a few millimeters of distraction to bring the fracture out to length. 2 additional locking screws were placed proximally and then 4 more screws were placed distally which were all locking screws. Final fluoroscopic imaging showed near anatomic alignment of the fracture and proper placement of hardware. Then attention directed over the medial malleolus where a linear incision was made down the midline. It was deepened down to the subcutaneous tissue careful to identify, void, and retracting neurovascular structures and cauterize any bleeding vessels. Blunt dissection was carried down to the periosteum over the fracture. Periosteum was incised transversely to expose the fracture. There were 3 fracture fragments present. There was the larger medial malleolus fragment that was reduced the smaller fragments were placed within the defects where they originated. An Arthrex hook plate was then placed over the fracture with the hooks embedded into the medial malleolus. Once the plate was properly positioned it was temporarily fixated. Fluoroscopy was used to make sure that the plate was properly positioned at the fractures remain reduced. Then the tines of the hook plate were impacted into the tip of the lateral malleolus. Nonlocking screw was placed to the proximal compression slot to further compress the fracture. A second nonlocking screw was then placed in the most proximal hole to contour the plate to the tibia. A third locking screw was placed distal to the first 2. Final fluoroscopic imaging showed proper placement of the hardware medially with maintained alignment of the fracture. Then attention was directed laterally again for the placement of the syndesmotic fixation. Appropriate drill hole was chosen and the plate and then the drill hole for the syndesmotic fixation was done lateral to medial parallel to the ankle joint and approximately 1 to 1-1/2 cm superior to the ankle joint. The medial hook plate was in on the portion of the tibia where there would exit so this was a tricortical screw placement. Once drilling was completed the screw was inserted and advanced. Once it engaged the plate the ankle was held maximal dorsiflexion and then the screw fully tightened. Stress views under fluoroscopy performed and there was no abnormal movement of the syndesmosis and no gapping of the medial gutter. All wounds were thoroughly irrigated with antibiotic saline. Deep closure was done with 2-0 Vicryl. Subcutaneous closure done with 3-0 Monocryl. Skin closure done with stainless kalina. Arthrex jumpstart was placed over both incisions and a bulky dry dressing is applied to the ankle. The tourniquet was released and capillary refill returned all digits on the right foot. The patient was placed in a bulky well-padded, well molded plaster posterior mold/sugar-tong splint. The ankle was held in neutral position until the splint was dried. Then anesthesia was reversed and the patient was taken recovery with vital signs stable
--- NOTE | 2024-12-22 12:23 | P.ANPRN ---
Procedure Note - Anesthesia - Nerve Block Performed Right Popliteal Single Time Out Performed: Yes (0656) Date of Procedure: 12/22/24 Procedure Start Time: :57 Procedure Stop Time: 07:02 Location of Patient: PreOp Indication: Acute Post-Operative Pain, Requested by Surgeon Specifically requested for management of pain by DrJonathan: Yaya Ac Sedation Type: Sedate with meaningful contact maintained Preparation: Sterile Prep Position: Left Lateral Catheter: None Needle Types: Pajunk Needle Gauge: 21 Ultrasound used to visualize needle placement: Yes Ultrasound used to observe medication spread: Yes Injectate: 0.5% Ropivacaine (see comment for volume) (15cc+10cc nacl pf+decadron 4mg) Blood Aspirated: No Pain Paresthesia on Injection Noted: No Resistance on Injection: Normal Image Stored and Saved: Yes Events: Uneventful and Well Tolerated
--- NOTE | 2024-12-22 12:24 | P.ANPRN ---
Procedure Note - Anesthesia - Nerve Block Performed Right Adductor Canal Single Time Out Performed: Yes (0656) Date of Procedure: 12/22/24 Procedure Start Time: :03 Procedure Stop Time: 07:06 Location of Patient: PreOp Indication: Acute Post-Operative Pain, Requested by Surgeon Specifically requested for management of pain by DrJonathan: Yaya Ac Sedation Type: Sedate with meaningful contact maintained Preparation: Sterile Prep Position: Supine Catheter: None Needle Types: Pajunk Needle Gauge: 21 Ultrasound used to visualize needle placement: Yes Ultrasound used to observe medication spread: Yes Injectate: 0.5% Ropivacaine (see comment for volume) (15cc+10cc nacl pf+decadron 4mg) Blood Aspirated: No Pain Paresthesia on Injection Noted: No Resistance on Injection: Normal Image Stored and Saved: Yes Events: Uneventful and Well Tolerated
[2024-12-22] MEDS: traZODone HCL 50 MG TAB PO SCH (22:49)
[2024-12-23] MEDS ORDERED: ALBUTEROL NEBULIZED 2.5 MG/3 ML INHALATION PRN (08:12)
[2024-12-23] MEDS ORDERED: DEXTROSE 50% SYRINGE 50 ML IVP PRN ×2 (08:13)
[2024-12-23] MEDS: CITALOPRAM HYDROBROMIDE 20 MG TAB PO SCH (08:43)
[2024-12-23] MEDS: LOSARTAN 50 MG TAB PO SCH (08:43)
[2024-12-23] MEDS: amLODIPine 10 MG TAB PO SCH (08:43)
[2024-12-23] MEDS: hydroCHLOROthiazide 25 MG TAB PO SCH (08:43)
[2024-12-23] MEDS: MORPHINE SULFATE 4 MG/ML SYRINGE IV PRN (08:43)
[2024-12-23] MEDS: PANTOPRAZOLE 40 MG TABLET PO SCH (08:47)
--- NOTE | 2024-12-23 09:47 | P.PN ---
Subjective Progress Note Date: 12/23/24 Patient is postop open reduction with internal fixation of right bimalleolar ankle fracture with syndesmotic fixation. Date of surgery was December 22, 2024. Nerve block has worn off. Patient has fairly significant pain. 1 Mead tablet was used for pain control however it did not manage the pain. Nursing provided 3 mg morphine sulfate injectable for pain control which seems to be helping. Patient denies nausea, vomiting, fever, chills, or shortness of breath Patient is awaiting rehab placement Objective - Vital Signs Vital signs: Vital Signs Temp 99.2 F 12/23/24 07:29 Pulse 69 12/23/24 07:29 Resp 14 12/23/24 07:29 BP 144/67 12/23/24 07:29 Pulse Ox 96 12/23/24 07:29 FiO2 Intake & Output 12/22/24 12/23/24 12/23/24 18:59 06:59 18:59 Intake Total 1231 1090 Output Total 20 Balance 1211 1090 Weight 95.4 kg Intake: IV 751 Oral 480 1090 Output: Estimated Blood Loss 20 Other: Voiding Method Bedpan # Voids 1 4 - Peripheral pulses dorsalis pedis Peripheral Pulses: right: Normal - Neurologic Neurologic Comment(s): Patient has normal light touch sensation to all digits on the right foot - Labs CBC & Chem 7: 12/22/24 06:30 Labs: Abnormal Lab Results - Last 24 Hours (Table) 12/22/24 Range/Units 10:54 POC Glucose (mg/dL) 144 H (70-110) mg/dL Assessment and Plan Assessment: Right bimalleolar ankle fracture with syndesmotic disruption Plan: Percocet was added to medication orders to take the place of Mead for better pain control. Continue elevating the right leg and applying ice. Patient remained nonweightbearing. Awaiting rehab placement. Follow-up appoint with Dr. Ac next week
[2024-12-23] MEDS: SYMBICORT 160-4.5 MCG INHALER INHALATION SCH (10:09)
[2024-12-23] MEDS: TIOTROPIUM 2.5 MCG INHALER INHALATION SCH (10:10)
[2024-12-23 11:36] LABS: Glucose,Whole Blood 124 mg/dL (70-110)
[2024-12-23] MEDS: INSULIN LISPRO (HumaLOG) 100 UNIT/ML 10 mL VL SQ SCH (11:46)
[2024-12-23] MEDS: oxyCODONE-APAP 7.5-325MG 1 EACH TAB PO PRN (12:04)
[2024-12-23] MEDS: SUCRALFATE 1 GM TAB PO SCH (12:04)
--- NOTE | 2024-12-23 14:29 | P.HPIM ---
History of Present Illness H&P Date: 12/23/24 Patient is a 59-year-old female with past medical history of asthma/COPD, hypertension, hyperlipidemia, insulin-dependent diabetes, GERD who was admitted for elective open reduction with internal fixation of right bimalleolar ankle fracture and right syndesmotic rupture. Patient states she is passing flatus but denies bowel movements at this time. Patient denies any fevers, chills, nausea, vomiting, diarrhea, urinary or bowel complaints. Review of systems: Pertinent positives and negatives as discussed in HPI, a complete review of systems was performed and all other systems are negative. Allergies: As listed in chart PCP: Dr. Ct De La Cruz Social history: Tobacco: Former smoker of 3 packs a day, quit in 2007 Alcohol: None Recreational drugs: None Travel: None Sick contacts: None Physical examination: Vital signs reviewed General: nontoxic, no distress, appears at stated age Derm: warm, dry, intact Head: atraumatic, normocephalic, symmetric Eyes: anicteric sclera Mouth: no lip lesion, mucus membranes moist Cardiovascular: S1 S2 reg, no murmur Lungs: CTA bilateral, no rhonchi, no rales, no accessory muscle use Abdominal: soft, non-tender to palpation, nondistended Extremities: No cyanosis, clubbing, or pedal edema. Right ankle is wrapped with with bandages Neuro: Alert, Oriented to person, time and place, Gross neurological examination did not reveal any focal deficits. Cranial nerves II to XII grossly intact. Bilateral upper and lower extremity muscle strength intact and sensation intact. Psych: well appearing, appropriate affect Assessment/Plan: Patient is a 59-year-old female with past medical history of asthma/COPD, hypertension, hyperlipidemia, insulin-dependent diabetes, GERD who was admitted for elective open reduction with internal fixation of right bimalleolar ankle fracture and right syndesmotic rupture. Active: Status post ORIF of right ankle fracture Pain management and DVT prophylaxis per primary team PT consulted Awaiting subacute rehab placement Chronic: Ikn-ynsngzr-wwmbhtsuy diabetes mellitus Hold metformin Accu-Cheks per [facility] protocol Insulin sliding scale Hypoglycemia precautions Hypertension Continue amlodipine 10 mg Continue Cozaar 100 mg Continue hydrochlorothiazide 25 mg Hyperlipidemia Continue Lipitor 20 mg p.o. at bedtime GERD Continue Protonix 40 mg daily Continue Carafate 1 g p.o. ACHS COPD/asthma Continue albuterol 4 times daily as needed Continue Symbicort 2 puffs twice daily Continue Spiriva 2 puffs daily Insomnia Continue trazodone 50 mg p.o. at bedtime Anxiety Continue Celexa 20 mg F: None E: Replete as needed N: Consistent carbohydrate A: Fall precautions DVT prophylaxis: Per primary team CODE STATUS: Full code Discussed with: Patient Anticipated discharge place: Subacute rehab Attestation I have seen and examined this patient with my resident , discussed the same with the resident/SHEREEN, and agree with the dictator's assessment and plan as written GENERAL: The patient is alert and oriented x3, not in any acute distress. Well developed, well nourished. HEENT: Pupils are round and equally reacting to light. EOMI. No scleral icterus. No conjunctival pallor. Normocephalic, atraumatic. No pharyngeal erythema. No thyromegaly. CARDIOVASCULAR: S1 and S2 present. No murmurs, rubs, or gallops. PULMONARY: Chest is clear to auscultation, no wheezing or crackles. ABDOMEN: Soft, nontender, nondistended, normoactive bowel sounds. No palpable organomegaly. MUSCULOSKELETAL: Right lower extremity cast seen EXTREMITIES: No cyanosis, clubbing, or pedal edema. NEUROLOGICAL: Gross neurological examination did not reveal any focal deficits. SKIN: No rashes. Dr. Austin orellana Past Medical History Past Medical History: Asthma, Cancer, COPD, Diabetes Mellitus, GERD/Reflux, Hyperlipidemia, Hypertension, Osteoarthritis (OA), Pneumonia, Sleep Apnea/CPAP/ BIPAP Additional Past Medical History / Comment(s): R ankle fracture, wearing support boot, swelling B/L legs/ankle-possible lymphedema, emphysema, migraines, "bleeds easily", skin cancer, no current cpap use-sleep apnea condition resolved/improved. Miscarriage X1 when "young" required blood transfusion. History of Any Multi-Drug Resistant Organisms: None Reported Past Surgical History: Section, Cholecystectomy, Hernia Repair, Hysterectomy, Orthopedic Surgery Additional Past Surgical History / Comment(s): B/L carpal tunnel surgery, B/L thumb tendon repair, skin cancer removed from nose, R ankle surgery x 3, surgery on stomach, B/L eyelid surgery Past Anesthesia/Blood Transfusion Reactions: Motion Sickness, Postoperative Nausea & Vomiting (PONV) Additional Past Anesthesia/Blood Transfusion Reaction / Comment(s): "I was told i bleed easy" after one surgery, no reactions report w/ prior blood transfusion. Past Psychological History: Anxiety, Depression Smoking Status: Former smoker Past Alcohol Use History: None Reported Additional Past Alcohol Use History / Comment(s): quit smoking 2007, smoked for > 30 yrs, > 1 PPD Past Drug Use History: None Reported - Past Family History Mother Family Medical History: No Reported History Medications and Allergies Home Medications Medication Instructions Recorded Confirmed Type Citalopram Hydrobromide 20 mg PO QAM 10/03/17 12/22/24 History [Citalopram HBr] Albuterol Sulfate [Proair Hfa] 2 puff INHALATION RT-QID PRN 06/08/18 12/22/24 History Furosemide [Lasix] 20 mg PO DAILY 06/05/20 12/22/24 History Fluticasone Propion/Salmeterol 2 puff INHALATION BID 01/22/22 12/22/24 History [Advair Hfa 230-21 Mcg Inhaler] Losartan Potassium [Cozaar] 100 mg PO QAM 01/22/22 12/22/24 History Omeprazole 40 mg PO QAM 01/22/22 12/22/24 History Simvastatin [Zocor] 40 mg PO HS 01/22/22 12/22/24 History Tiotropium [place] [Spiriva] 1 cap INHALATION QAM 01/22/22 12/20/24 History hydroCHLOROthiazide [Hydrodiuril] 25 mg PO DAILY 01/22/22 12/22/24 History metFORMIN HCL 500 mg PO W/SUPPER 01/22/22 12/22/24 History traZODone HCL 50 mg PO HS 01/22/22 12/22/24 History Sucralfate [Carafate] 1 gm PO ACHS 06/01/22 12/22/24 History amLODIPine [Norvasc] 10 mg PO QAM 06/01/22 12/22/24 History HYDROcodone/APAP 5-325MG [[place] 1 tab PO Q6HR PRN 12/20/24 12/22/24 History 5-325] Allergies Allergy/AdvReac Type Severity Reaction Status Date / Time clarithromycin [From Biaxin] Allergy Severe Dyspnea/jessica Verified 12/22/24 06:50 h/swelling Macrolide Antibiotics Allergy Unknown Verified 12/22/24 06:50 Physical Exam Vitals: Vital Signs Temp Pulse Resp BP BP Pulse Ox 12/23/24 02:38 98.3 F 67 16 138/70 94 L 12/22/24 18:59 98.2 F 73 16 122/62 97 12/22/24 13:23 97.9 F 76 18 144/78 96 12/22/24 11:13 97.8 F 76 16 144/75 93 L 12/22/24 11:00 74 16 124/58 96 12/22/24 10:45 74 16 133/63 93 L 12/22/24 10:30 73 16 137/65 96 12/22/24 10:15 76 16 133/61 96 12/22/24 10:00 82 16 140/65 96 12/22/24 09:46 83 16 142/64 96 12/22/24 09:27 97 F L 85 16 159/72 99 Intake and Output 12/22/24 12/23/24 12/23/24 22:59 06:59 14:59 Intake Total 1020 550 Balance 1020 550 Intake: Oral 1020 550 Other: Voiding Method Bedpan # Voids 1 4 Results CBC & Chem 7: 12/22/24 06:30 Labs: Abnormal Lab Results - Last 24 Hours (Table) 12/22/24 Range/Units 10:54 POC Glucose (mg/dL) 144 H (70-110) mg/dL Thrombosis Risk Factor Assmnt - Choose All That Apply Each Factor Represents 1 point: Age 41-60 years Each Risk Factor Represents 2 Points: Arthroscopic surgery Thrombosis Risk Factor Assessment Total Risk Factor Score: 3 Thrombosis Risk Factor Assessment Level: Moderate Risk
[2024-12-23 16:48] LABS: Glucose,Whole Blood 130 mg/dL (70-110)
[2024-12-23] MEDS: ATORVASTATIN 20 MG TAB PO SCH (20:12)
[2024-12-23] MEDS ORDERED: traZODone HCL 50 MG TAB PO SCH (21:00)
[2024-12-23 22:37] LABS: Glucose,Whole Blood 154 mg/dL (70-110)
[2024-12-24 06:27] LABS: Glucose,Whole Blood 117 mg/dL (70-110)
--- NOTE | 2024-12-24 11:04 | P.PN ---
Subjective Progress Note Date: 12/24/24 Principal diagnosis: Status post open reduction internal fixation right ankle. Bimalleolar fracture right ankle. Patient is postop open reduction with internal fixation of right bimalleolar ankle fracture with syndesmotic fixation. Date of surgery was December 22, 2024. Pain is improved slightly today. Patient denies nausea, vomiting, fever, chills, or shortness of breath. Patient is awaiting rehab placement. Objective - Vital Signs Vital signs: Vital Signs Temp 99.1 F 12/24/24 07:45 Pulse 65 12/24/24 07:45 Resp 17 12/24/24 07:45 BP 133/70 12/24/24 07:45 Pulse Ox 93 L 12/24/24 07:45 FiO2 Intake & Output 12/23/24 12/24/24 12/24/24 18:59 06:59 18:59 Intake Total 1620 450 Output Total 220 Balance -220 1620 450 Intake: Oral 1620 450 Output: Urine 220 Other: Voiding Method Bedside Commode # Voids 2 6 - Exam This is a pleasant 59-year-old female in no acute distress. She is alert and oriented x 3. Exam of the lower extremity reveals that her splint is intact. She has full toe motion without difficulty or pain. She has normal sensation to the toes to light touch. Capillary refill is less than 3 seconds. - Labs CBC & Chem 7: 12/22/24 06:30 Labs: Abnormal Lab Results - Last 24 Hours (Table) 12/23/24 12/23/24 12/23/24 Range/Units 11:34 16:47 22:35 POC Glucose (mg/dL) 124 H 130 H 154 H (70-110) mg/dL 12/24/24 Range/Units 06:26 POC Glucose (mg/dL) 117 H (70-110) mg/dL Assessment and Plan (1) Status post ORIF of fracture of ankle Current Visit: Yes Status: Acute Code(s): Z98.890 - OTHER SPECIFIED POSTPROCEDURAL STATES; Z87.81 - PERSONAL HISTORY OF (HEALED) TRAUMATIC FRACTURE SNOMED Code(s): 94668799044940072 (2) Fracture of distal end of tibia with fibula Current Visit: No Status: Acute Code(s): S82.309A - UNSP FRACTURE OF LOWER END OF UNSP TIBIA, INIT FOR CLOS FX; S82.839A - OTH FRACTURE OF UPPER AND LOWER END OF UNSP FIBULA, INIT SNOMED Code(s): 786654931 Plan: The clinical findings are discussed with the patient. She is awaiting inpatient rehab likely tomorrow. Continue care.
[2024-12-24 11:30] LABS: Glucose,Whole Blood 126 mg/dL (70-110)
--- NOTE | 2024-12-24 13:44 | P.PN ---
Subjective Progress Note Date: 12/24/24 Patient is a 59-year-old female with past medical history of asthma/COPD, hypertension, hyperlipidemia, insulin-dependent diabetes, GERD who was admitted for elective open reduction with internal fixation of right bimalleolar ankle fracture and right syndesmotic rupture. Patient states she is passing flatus but denies bowel movements at this time. Patient denies any fevers, chills, nausea, vomiting, diarrhea, urinary or bowel complaints. 12/24. Patient seen and examined. States she feels better. No acute issues overnight. Vital signs notable REVIEW OF SYSTEMS: CONSTITUTIONAL: No fever, no malaise,. CARDIOVASCULAR: No chest pain, no palpitations, no syncope. PULMONARY: No shortness of breath, no cough, GASTROINTESTINAL: No diarrhea, no nausea, no vomiting, no abdominal pain. NEUROLOGICAL: No headaches, no weakness, PHYSICAL EXAMINATION: GENERAL: The patient is alert and oriented x3, not in any acute distress. Well developed, well nourished. HEENT: Pupils are round and equally reacting to light. EOMI. No scleral icterus. No conjunctival pallor. Normocephalic, atraumatic. No pharyngeal erythema. No thyromegaly. CARDIOVASCULAR: S1 and S2 present. No murmurs, rubs, or gallops. PULMONARY: Chest is clear to auscultation, no wheezing or crackles. ABDOMEN: Soft, nontender, nondistended, normoactive bowel sounds. No palpable organomegaly. MUSCULOSKELETAL: Right lower extremity cast seen EXTREMITIES: No cyanosis, clubbing, or pedal edema. NEUROLOGICAL: Gross neurological examination did not reveal any focal deficits. SKIN: No rashes. Assessment and plan Status post ORIF of right ankle fracture Pain management and DVT prophylaxis per orthopedic team PT OT following Chronic: Mla-zxummcl-pbaexwahl diabetes mellitus Hold metformin Accu-Cheks per [facility] protocol Insulin sliding scale Hypoglycemia precautions Hypertension Continue amlodipine 10 mg Continue Cozaar 100 mg Continue hydrochlorothiazide 25 mg Hyperlipidemia Continue Lipitor 20 mg p.o. at bedtime GERD Continue Protonix 40 mg daily Continue Carafate 1 g p.o. [facility] COPD/asthma Continue albuterol 4 times daily as needed Continue Symbicort 2 puffs twice daily Continue Spiriva 2 puffs daily Insomnia Continue trazodone 50 mg p.o. at bedtime Anxiety Continue Celexa 20 mg Labs and medication were reviewed.. Continue same treatment. Continue with symptomatic treatment. Resume home medication. Monitor labs and vitals. DVT and GI prophylaxis. Further recommendations as per clinical course of the patient Dictation was produced using [employer] dictation software. please excuse any grammatical, word or spelling errors. Objective - Vital Signs Vital signs: Vital Signs Temp 99.1 F 12/24/24 07:45 Pulse 65 12/24/24 07:45 Resp 17 12/24/24 07:45 BP 133/70 12/24/24 07:45 Pulse Ox 93 L 12/24/24 07:45 FiO2 Intake & Output 12/23/24 12/24/24 12/24/24 18:59 06:59 18:59 Intake Total 1620 450 Output Total 220 Balance -220 1620 450 Intake: Oral 1620 450 Output: Urine 220 Other: Voiding Method Bedside Commode # Voids 2 6 - Labs CBC & Chem 7: 12/22/24 06:30 Labs: Abnormal Lab Results - Last 24 Hours (Table) 12/23/24 12/23/24 12/23/24 Range/Units 11:34 16:47 22:35 POC Glucose (mg/dL) 124 H 130 H 154 H (70-110) mg/dL 12/24/24 Range/Units 06:26 POC Glucose (mg/dL) 117 H (70-110) mg/dL
[2024-12-24 17:30] LABS: Glucose,Whole Blood 125 mg/dL (70-110)
[2024-12-24] MEDS: SENNOSIDES-DOCUSATE SODIUM 1 EACH TAB PO PRN (20:37)
[2024-12-24 21:07] LABS: Glucose,Whole Blood 176 mg/dL (70-110)
[2024-12-25 06:44] LABS: Glucose,Whole Blood 120 mg/dL (70-110)
[2024-12-25 08:42] VITALS: RESP 17
[2024-12-25 11:36] LABS: Glucose,Whole Blood 98 mg/dL (70-110)
[2024-12-25 14:47] VITALS: BP 97/59; PULSE 73; TEMP 98.6
--- NOTE | 2024-12-25 15:15 | P.PN ---
Subjective Progress Note Date: 12/25/24 Hospital Course: Patient is a 59-year-old female with past medical history of asthma/COPD, hypertension, hyperlipidemia, insulin-dependent diabetes, GERD who was admitted for elective open reduction with internal fixation of right bimalleolar ankle fracture and right syndesmotic rupture. Patient states she is passing flatus but denies bowel movements at this time. Patient denies any fevers, chills, na usea, vomiting, diarrhea, urinary or bowel complaints. 12/25/2024 Patient seen and examined at bedside. No acute events overnight. Patient is resting comfortably in the chair. She denies any acute complaints at this time. She is currently awaiting rehab placement. Pertinent positives and negatives discussed above, a complete review of systems was performed and all the other systems were negative. Vitals Signs Reviewed. Physical examination: Vital signs reviewed General: nontoxic, no distress, appears at stated age Derm: warm, dry, intact Head: atraumatic, normocephalic, symmetric Eyes: anicteric sclera Mouth: no lip lesion, mucus membranes moist Cardiovascular: S1 S2 reg, no murmur Lungs: CTA bilateral, no rhonchi, no rales, no accessory muscle use Abdominal: soft, non-tender to palpation, nondistended Extremities: No cyanosis, clubbing, or pedal edema. Right ankle is wrapped with with bandages Neuro: Alert, Oriented to person, time and place, Gross neurological examination did not reveal any focal deficits. Cranial nerves II to XII grossly intact. Bilateral upper and lower extremity muscle strength intact and sensation intact. Psych: well appearing, appropriate affect Assessment and Plan: Patient is a 59-year-old female with past medical history of asthma/COPD, hypertension, hyperlipidemia, insulin-dependent diabetes, GERD who was admitted for elective open reduction with internal fixation of right bimalleolar ankle fracture and right syndesmotic rupture. Active: Status post ORIF of right ankle fracture Pain management and DVT prophylaxis per primary team PT consulted Awaiting subacute rehab placement Chronic: Sxs-wyehjmd-xrajamqbt diabetes mellitus Hold metformin Accu-Cheks per [facility] protocol Insulin sliding scale Hypoglycemia precautions Hypertension Continue amlodipine 10 mg Continue Cozaar 100 mg Continue hydrochlorothiazide 25 mg Hyperlipidemia Continue Lipitor 20 mg p.o. at bedtime GERD Continue Protonix 40 mg daily Continue Carafate 1 g p.o. ACHS COPD/asthma Continue albuterol 4 times daily as needed Continue Symbicort 2 puffs twice daily Continue Spiriva 2 puffs daily Insomnia Continue trazodone 50 mg p.o. at bedtime Anxiety Continue Celexa 20 mg F: None E: Replete as needed N: Consistent carbohydrate A: Fall precautions DVT prophylaxis: Per primary team CODE STATUS: Full code Discussed with: Patient Anticipated discharge place: Subacute rehab Objective - Vital Signs Vital signs: Vital Signs Temp 98.6 F 12/25/24 14:00 Pulse 73 12/25/24 14:00 Resp 17 12/25/24 14:00 BP 97/59 12/25/24 14:00 Pulse Ox 96 12/25/24 14:00 FiO2 Intake & Output 12/24/24 12/25/24 12/25/24 18:59 06:59 18:59 Intake Total 650 1620 120 Balance 650 1620 120 Intake: Oral 650 1620 120 Other: Voiding Method Bedside Commode # Voids 4 6 - Labs CBC & Chem 7: 12/22/24 06:30 Labs: Abnormal Lab Results - Last 24 Hours (Table) 12/24/24 12/24/24 12/25/24 Range/Units 17:28 21:04 06:43 POC Glucose (mg/dL) 125 H 176 H 120 H (70-110) mg/dL
--- NOTE | 2024-12-25 15:51 | P.DS ---
Providers Date of admission: 12/22/24 05:58 Expected date of discharge: 12/25/24 Attending physician: Apryl Mcghee Consults: 12/22/24 14:37 Consult Physician Routine Consulting Provider: Yaya Ac Consult Reason/Comments: ORIF right ankle Do you want consulting provider notified?: Yes Primary care physician: [facility] Hospital Course: Patient is a 59-year-old female with past medical history of asthma/COPD, hypertension, hyperlipidemia, insulin-dependent diabetes, GERD who was admitted for elective open reduction with internal fixation of right bimalleolar ankle fracture and right syndesmotic rupture. Patient states she is passing flatus but denies bowel movements at this time. Patient denies any fevers, chills, nausea, vomiting, diarrhea, urinary or bowel complaints. Discharge diagnoses; Right ankle fracture status post ORIF Hqb-fkikris-ypimmycic dependent diabetes mellitus Hypertension Hyperlipidemia GERD COPD Insomnia Anxiety 12/25/2024 Patient seen and examined at bedside today. Patient resting comfortably in the chair today. Patient denying any acute complaints and is excited for discharge. Patient will be discharged to subacute rehab today. Patient is advised to be compliant with medications. Patient is advised to follow-up with PCP in 1 to 2 days. Patient has to follow-up with Dr. Ac as listed in discharge instructions. Physical Exam: Vital signs reviewed General: nontoxic, no distress, appears at stated age Derm: warm, dry, intact Head: atraumatic, normocephalic, symmetric Eyes: anicteric sclera Mouth: no lip lesion, mucus membranes moist Cardiovascular: S1 S2 reg, no murmur Lungs: CTA bilateral, no rhonchi, no rales, no accessory muscle use Abdominal: soft, non-tender to palpation, nondistended Extremities: No cyanosis, clubbing, or pedal edema. Right ankle is wrapped with with bandages Neuro: Alert, Oriented to person, time and place, Gross neurological examination did not reveal any focal deficits. Cranial nerves II to XII grossly intact. Bilateral upper and lower extremity muscle strength intact and sensation intact. Psych: well appearing, appropriate affect Dictation was produced using [employer] dictation software. please excuse any grammatical, word or spelling errors. A total of minutes of 20 minutes were spent preparing this complex discharge s [email or web address]. Patient was discharged on 12/25/2024 at 1542. Patient Condition at Discharge: Good Plan - Discharge Summary Discharge Rx Participant: No New Discharge Prescriptions: Continue Citalopram Hydrobromide [Citalopram HBr] 20 mg PO QAM Albuterol Sulfate [Proair Hfa] 2 puff INHALATION RT-QID PRN PRN Reason: Shortness Of Breath Furosemide [Lasix] 20 mg PO DAILY Omeprazole 40 mg PO QAM Tiotropium [place] [Spiriva] 1 cap INHALATION QAM traZODone HCL 50 mg PO HS amLODIPine [Norvasc] 10 mg PO QAM HYDROcodone/APAP 5-325MG [[place] 5-325] 1 tab PO Q6HR PRN PRN Reason: Pain Fluticasone Propion/Salmeterol [Advair Hfa 230-21 Mcg Inhaler] 2 puff INHALATION BID hydroCHLOROthiazide [Hydrodiuril] 25 mg PO DAILY Losartan Potassium [Cozaar] 100 mg PO QAM metFORMIN HCL 500 mg PO W/SUPPER Simvastatin [Zocor] 40 mg PO HS Sucralfate [Carafate] 1 gm PO ACHS Discharge Medication List Citalopram Hydrobromide [Citalopram HBr] 20 mg PO QAM 10/03/17 [History] Albuterol Sulfate [Proair Hfa] 2 puff INHALATION RT-QID PRN 06/08/18 [History] Furosemide [Lasix] 20 mg PO DAILY 06/05/20 [History] Fluticasone Propion/Salmeterol [Advair Hfa 230-21 Mcg Inhaler] 2 puff INHALATION BID 01/22/22 [History] Losartan Potassium [Cozaar] 100 mg PO QAM 01/22/22 [History] Omeprazole 40 mg PO QAM 01/22/22 [History] Simvastatin [Zocor] 40 mg PO HS 01/22/22 [History] Tiotropium [place] [Spiriva] 1 cap INHALATION QAM 01/22/22 [History] hydroCHLOROthiazide [Hydrodiuril] 25 mg PO DAILY 01/22/22 [History] metFORMIN HCL 500 mg PO W/SUPPER 01/22/22 [History] traZODone HCL 50 mg PO HS 01/22/22 [History] Sucralfate [Carafate] 1 gm PO ACHS 06/01/22 [History] amLODIPine [Norvasc] 10 mg PO QAM 06/01/22 [History] HYDROcodone/APAP 5-325MG [[place] 5-325] 1 tab PO Q6HR PRN 12/20/24 [History] Follow up Appointment(s)/Referral(s): Yaya Ac DPM [Doctor of Osteopathic Medicine] - 12/28/24 Jeis Saunders, [NON-STAFF] - As Needed Patient Instructions/Handouts: *Surgery [facility] - (Yashira) Discharge Instructins Foot Surgery Activity/Diet/Wound Care/Special Instructions: Keep the splint clean, dry, and intact. Do not remove Nonweightbearing on right leg Use ambulatory aids for mobility keep leg elevated when resting Apply ice behind the knee, just above the splint. Discharge Disposition: TRANSFER TO SNF/ECF
[2024-12-25 16:47] LABS: Glucose,Whole Blood 93 mg/dL (70-110)
== END 2024-12-25 19:26 ==
LOC: OR 05:57 → 4SSUR 05:58
PROVIDERS: ADMIT Hospitalist; ATTEND Hospitalist
DX: S82.841A Displaced bimalleolar fracture of right lower leg, initial encounter for closed fracture (principal); S93.439A Sprain of tibiofibular ligament of unspecified ankle, initial encounter; E11.9 Type 2 diabetes mellitus without complications; E78.5 Hyperlipidemia, unspecified; F32.A Depression, unspecified; F41.9 Anxiety disorder, unspecified; G47.00 Insomnia, unspecified; I10 Essential (primary) hypertension; J44.89 Other specified chronic obstructive pulmonary disease; K21.9 Gastro-esophageal reflux disease without esophagitis; M19.90 Unspecified osteoarthritis, unspecified site; G47.30 Sleep apnea, unspecified; Z75.1 Person awaiting admission to adequate facility elsewhere; Z79.51 Long term (current) use of inhaled steroids; Z79.84 Long term (current) use of oral hypoglycemic drugs; Z79.899 Other long term (current) drug therapy; Z85.828 Personal history of other malignant neoplasm of skin; Z87.891 Personal history of nicotine dependence; Z88.1 Allergy status to other antibiotic agents; W00.0XXA Fall on same level due to ice and snow, initial encounter
CPT/HCPCS: 27814; 27829; 94640 ×4; 97116; 97530; 97162; 97166; 64447; 64445; 84132; 73600; G0378 ×4; C1713; C1734; J2250; J0330; J2270; J1100; J0690 ×3; J2405; J2003; J3010; J1171 ×2; J2795; J2704

== ENCOUNTER → 2025-02-27 | Outpatient (CLI) | payer MEDICARE, OTHER ==
--- NOTE | 2025-02-27 14:23 | MM ---
Reason for Exam: Screening (asymptomatic). Last mammogram was performed 1 year(s) and 5 month(s) ago. Patient History: Menarche at age 12. First Full-Term at age 17. Hysterectomy at age 31. Postmenopausal. Other cancer. Excisional Biopsy on the Right side. Excisional Biopsy on the Left side. Maternal aunt had breast cancer. Risk Values: Belkys 5 year model risk: 1.6%. NCI Lifetime model risk: 7.9%. Prior Study Comparison: 05/02/2020 Bilateral Screening Mammogram, [facility]. 05/16/2020 Right Diagnostic Mammogram, [facility]. 08/04/2022 Bilateral MG 3D screening mammo w/cad, [facility]. 09/28/2023 Bilateral MG 3D screening mammo w/cad, [facility]. Tissue Density: The breasts are heterogeneously dense, which may obscure small masses. Findings: There are benign-appearing round calcifications bilaterally redemonstrated. Benign-appearing bilateral axillary lymph nodes are again seen. There is no suspicious new group of microcalcifications or new suspicious mass in either breast. Overall Assessment: Benign, BI-RAD 2 Management: Screening Mammogram of both breasts in 1 year. . Patient should continue monthly self-breast exams. A clinical breast exam by your physician is recommended on an annual basis. This exam should not preclude additional follow-up of suspicious palpable abnormalities. Note on Belkys scores and lifetime risk: 1. A Belkys score greater than 3% is considered moderate risk. If this is the case, consider specialist referral to assess eligibility for a risk reducing agent. 2. If overall lifetime risk for the development of breast cancer is 20% or higher, the patient may qualify for future screening with alternating mammogram and breast MRI. [facility], , 02/27/2025 2:20 PM. Electronically signed and approved by: Ghanshyam Loco M.D.
== END | disposition home or self-care (01) ==
LOC: RADMAMWWP 11:25
PROVIDERS: ATTEND Family Medicine
DX: Z12.31 Encounter for screening mammogram for malignant neoplasm of breast (principal); R92.333 Mammographic heterogeneous density, bilateral breasts; Z78.0 Asymptomatic menopausal state; Z80.3 Family history of malignant neoplasm of breast
CPT/HCPCS: 77063; 77067

== ENCOUNTER 2025-04-30 11:36 | Inpatient (IN) | payer MEDICARE, MEDICAID ==
--- NOTE | 2025-04-30 14:07 | ED ---
Psych HPI - General Chief Complaint: Psychiatric Symptoms Stated Complaint: Mental Health Eval. Time Seen by Provider: 04/30/25 13:43 Source: patient, family, RN notes reviewed Mode of arrival: ambulatory Limitations: no limitations - History of Present Illness Initial Comments: This is a 59-year-old female who presents to the emergency department for ps ychiatric evaluation. Patient has a history of mental health problems and takes mental health medication, but states that they have not been helpful. She has had worsening depression over the last several months with suicidal ideations. Denies any plans, however she does have a history of suicide attempts and previous psychiatric hospitalizations. States that she feels like she needs to be hospitalized at this point and she is concerned about what could happen if she goes home. Her daughter is also concerned about her safety. Denies any homicidal ideations. MD Complaint: suicidal ideation, feels depressed - Related Data Home Medications Medication Instructions Recorded Confirmed Furosemide [Lasix] 20 mg PO DAILY 06/05/20 04/30/25 Fluticasone Propion/Salmeterol 2 puff INHALATION RT-BID 01/22/22 04/30/25 [Advair Hfa 230-21 Mcg Inhaler] Losartan Potassium [Cozaar] 100 mg PO DAILY 01/22/22 04/30/25 Simvastatin [Zocor] 40 mg PO HS 01/22/22 04/30/25 Tiotropium [place] [Spiriva] 1 cap INHALATION RT-DAILY 01/22/22 04/30/25 Sucralfate [Carafate] 1 gm PO ACHS 06/01/22 04/30/25 amLODIPine [Norvasc] 10 mg PO DAILY 06/01/22 04/30/25 Dulaglutide [Trulicity] 0.75 mg SQ MO 03/30/25 04/30/25 Escitalopram [Lexapro] 20 mg PO DAILY 03/30/25 04/30/25 Ibuprofen 800 mg PO TID PRN 03/30/25 04/30/25 Albuterol Sulfate [Ventolin HFA] 2 puff INHALATION RT-QID PRN 04/30/25 04/30/25 Betamethasone Dipropionate 1 applic TOPICAL BID PRN 04/30/25 04/30/25 [Betamethasone Dipropionate 0.05% Cream] Esomeprazole Magnesium [NexIUM] 40 mg PO DAILY 04/30/25 04/30/25 Ketoconazole 2% Cream [Nizoral 2%] 1 applic TOPICAL DAILY PRN 04/30/25 04/30/25 carvediloL [Coreg] 6.25 mg PO BID 04/30/25 04/30/25 metFORMIN HCL ER [Glucophage XR] 500 mg PO PC-SUPPER 04/30/25 04/30/25 traZODone HCL [Desyrel] 100 mg PO HS 04/30/25 04/30/25 Allergies Allergy/AdvReac Type Severity Reaction Status Date / Time clarithromycin [From Biaxin] Allergy Severe Dyspnea/jessica Verified 04/30/25 16:27 h/swelling Macrolide Antibiotics Allergy Rash/Hives Verified 04/30/25 16:27 Review of Systems ROS Statement: Those systems with pertinent positive or pertinent negative responses have been documented in the HPI. ROS Other: All systems not noted in ROS Statement are negative. Past Medical History Past Medical History: Asthma, Cancer, COPD, Diabetes Mellitus, GERD/Reflux, Hype rlipidemia, Hypertension, Osteoarthritis (OA), Pneumonia, Sleep Apnea/CPAP/BIPAP Additional Past Medical History / Comment(s): R ankle fracture, wearing support boot, swelling B/L legs/ankle-possible lymphedema, emphysema, migraines, "bleeds easily", skin cancer, no current cpap use-sleep apnea condition resolved/improved. Miscarriage X1 when "young" required blood transfusion. History of Any Multi-Drug Resistant Organisms: None Reported Past Surgical History: Section, Cholecystectomy, Hernia Repair, Hysterectomy, Orthopedic Surgery Additional Past Surgical History / Comment(s): B/L carpal tunnel surgery, B/L thumb tendon repair, skin cancer removed from nose, R ankle surgery x 3, surgery on stomach, B/L eyelid surgery Past Anesthesia/Blood Transfusion Reactions: Motion Sickness, Postoperative Nausea & Vomiting (PONV) Additional Past Anesthesia/Blood Transfusion Reaction / Comment(s): "I was told i bleed easy" after one surgery, no reactions report w/ prior blood transfusion. Past Psychological History: Anxiety, Depression Smoking Status: Former smoker - Past Family History Mother Family Medical History: No Reported History General Exam Limitations: no limitations General appearance: alert, in no apparent distress Head exam: Present: atraumatic, normocephalic, normal inspection Respiratory exam: Present: normal lung sounds bilaterally. Absent: respiratory distress, wheezes, rales, rhonchi, stridor Cardiovascular Exam: Present: regular rate, normal rhythm Neurological exam: Present: alert, oriented X3, CN II-XII intact Psychiatric exam: Present: depressed, suicidal ideation. Absent: homicidal ideation Skin exam: Present: warm, dry, intact, normal color. Absent: rash Course Vital Signs 04/30/25 04/30/25 11:48 19:29 Temperature 97.8 F 98.2 F Pulse Rate 69 68 Respiratory 16 16 Rate Blood Pressure 134/73 136/82 O2 Sat by Pulse 99 96 Oximetry Medical Decision Making - Medical Decision Making This is a 59-year-old female who presents to the emergency department for ps ychiatric evaluation. Was pt. sent in by a medical professional or institution? @ -No Did you speak to anyone other than the patient for history? @ -No Did you review nursing and triage notes? @ -Yes, and I agree, it is accurate with regards to the patient's symptoms. Were old charts reviewed? @ -No Differential Diagnosis? @ -Differential Mental Health Depression, anxiety, bipolar, psychosis, schizophrenia, borderline personality, situational depression, adjustment disorder, behavioral disorder, brain tumor, malingering, substance abuse, encephalopathy, medication reaction, dementia, hypothyroidism, degenerative neurologic disorder, lupus.... This is not meant to be all-inclusive list EKG interpreted by me (3pts min.)? @ -Not obtained X-rays interpreted by me (1pt min.)? @ -Not obtained CT interpreted by me (1pt min.)? @ -Not obtained U/S interpreted by me (1pt. min.)? @ -Not obtained What testing was considered but not performed? (CT, X-rays, U/S, labs)? Why? @ -None What meds were considered but not given? Why? @ -None Did you discuss the management of the patient with other professionals? @ -Yes, Wilman with EPS, who advised that the patient will be admitted to on a voluntary basis. Did you reconcile home meds? @ -No Was smoking cessation discussed for >3mins.? @ -No Was critical care preformed (if so, how long)? @ -No Were there social determinants of health that impacted care today? How? (Homelessness, low income, unemployed, alcoholism, drug addiction, transportation, low edu. Level, literacy, decrease access to med. care, fpc, rehab)? @ -No Was there de-escalation of care discussed even if they declined? (Discuss DNR or withdrawal of care, Hospice)? @ -No What co-morbidities impacted this encounter? (DM, HTN, Smoking, COPD, CAD, Cancer, CVA, Hep., AIDS, mental health diagnosis, sleep apnea, morbid obesity)? @ -Psychiatric illness Was patient admitted / discharged? @ -Admitted. Patient's BAT was 0.0 and she was cleared for EPS evaluation. UA negative for signs of infection. UDS negative. EPS evaluated the patient and advised that she meets criteria for inpatient psychiatric hospitalization due to increasing depression with active suicidal ideations. I am in agreement with this plan. Patient admitted to [facility] on a voluntary basis for further psychi atric care. Undiagnosed new problem with uncertain prognosis? @ -None Drug Therapy requiring intensive monitoring for toxicity (Heparin, Nitro, Insulin, Cardizem)? @ -None Were any procedures done? @ -None Diagnosis/symptom? @ -Suicidal ideations Acute, or Chronic, or Acute on Chronic? @ -Acute Uncomplicated (without systemic symptoms) or Complicated (systemic symptoms)? @ -Complicated Side effects of treatment? @ -None Exacerbation, Progression, or Severe Exacerbation] @ -Not applicable Poses a threat to life or bodily function? @ -Yes, can lead to - Lab Data Lab Results 04/30/25 04/30/25 Range/Units 14:25 14:25 Urine Color Colorless Urine Appearance Clear (Clear) Urine pH 5.5 (5.0-8.0) Ur Specific [place] 1.009 (1.001-1.035) Urine Protein Negative (Negative) Urine Glucose (UA) Negative (Negative) Urine Ketones Negative (Negative) Urine Blood Negative (Negative) Urine Nitrite Negative (Negative) Urine Bilirubin Negative (Negative) Urine Urobilinogen <2.0 (<2.0) mg/dL Ur Leukocyte Esterase Negative (Negative) Urine Opiates Screen Not Detected (NotDetected) Ur Oxycodone Screen Not Detected (NotDetected) Urine Methadone Screen Not Detected (NotDetected) Ur Barbiturates Screen Not Detected (NotDetected) U Tricyclic Antidepress Not Detected (NotDetected) Ur Phencyclidine Scrn Not Detected (NotDetected) Ur Amphetamines Screen Not Detected (NotDetected) U Methamphetamines Scrn Not Detected (NotDetected) U Benzodiazepines Scrn Not Detected (NotDetected) Urine Cocaine Screen Not Detected (NotDetected) U Marijuana (THC) Screen Not Detected (NotDetected) Influenza Type A (PCR) Not Detected (Not Detectd) Influenza Type B (PCR) Not Detected (Not Detectd) RSV (PCR) Not Detected (Not Detectd) SARS-CoV-2 (PCR) Not Detected (Not Detectd) Disposition Clinical Impression: Suicidal ideations, Uncontrolled depression Disposition: TRANSFER TO PSYCH HOSP/UNIT Referrals: Scottie De La Cruz DO [Primary Care Provider] - 1-2 days
[2025-04-30 14:49] LABS: Bilirubin,Urine Negative (Negative); Blood,Urine Negative (Negative); Color,Urine Colorless; Glucose,Urine (UA) Negative (Negative); Ketones,Urine Negative (Negative); Leukocyte Esterase,Urine Negative (Negative); Nitrite,Urine Negative (Negative); PH, Urine 5.5 (5.0-8.0); Protein,Urine Negative (Negative); Specific Gravity,Urine 1.009 (1.001-1.035); Urobilinogen,Urine <2.0 mg/dL (<2.0)
[2025-04-30 14:58] LABS: Barbiturate Screen,Urine Not Detected (NotDetected); Benzodiazepines Screen,Urine Not Detected (NotDetected); Opiate Screen,Urine Not Detected (NotDetected); Oxycodone Screen, Urine Not Detected (NotDetected); Phencyclidine Screen,Urine Not Detected (NotDetected); Tricyclic Antidepressant,Urine Not Detected (NotDetected); Urn Cannabinoid Scrn Not Detected (NotDetected)
[2025-04-30 15:53] LABS: RSV Not Detected (Not Detectd)
[2025-04-30] MEDS ORDERED: ALBUTEROL NEBULIZED 2.5 MG/3 ML INHALATION PRN (19:41)
[2025-04-30] MEDS ORDERED: MAG HYDROX/AL HYDROX/SIMETH 355 ML BOTTLE PO PRN (19:48)
[2025-04-30] MEDS ORDERED: ACETAMINOPHEN TAB 325 MG TAB PO PRN (19:48)
[2025-04-30] MEDS ORDERED: LORazepam 1 MG/0.5 ML VIAL IM PRN (19:48)
[2025-04-30] MEDS ORDERED: ALBUTEROL INHALER 60 PUFF/8 GM INHALER (MHU) INHALATION PRN (20:14)
[2025-04-30] MEDS: SYMBICORT 160-4.5 MCG INHALER (MHU) INHALATION SCH (21:18)
[2025-04-30] MEDS: IBUPROFEN 800 MG TAB PO PRN (21:20)
[2025-04-30] MEDS: ATORVASTATIN 20 MG TAB PO SCH (21:20)
[2025-04-30] MEDS: SUCRALFATE 1 GM TAB PO SCH (21:20)
[2025-04-30] MEDS: LORazepam 1 MG TAB PO PRN (21:27)
[2025-05-01 07:54] LABS: Glucose,Whole Blood 108 mg/dL (70-110)
[2025-05-01 08:30] LABS: Basophils # (A) 0.06 10*3/uL (0.00-0.10); Basophils % (A) 0.8 %; Eosinophils # (A) 0.19 10*3/uL (0.04-0.35); Eosinophils % (A) 2.7 %; HCT 40.9 % (37.2-46.3); HGB 12.9 g/dL (12.0-15.0); Lymphocytes # (A) 1.47 10*3/uL (0.90-5.00); Lymphocytes % (A) 20.8 %; MCH 25.7 pg (27.0-32.0); MCHC 31.5 g/dL (32.0-37.0); MCV 81.5 fL (80.0-97.0); Monocytes # (A) 0.72 10*3/uL (0.20-1.00); Monocytes % (A) 10.2 %; Neutrophils # (A) 4.57 10*3/uL (1.80-7.70); Neutrophils % (A) 64.8 %; Platelet Count 270 10*3/uL (140-440); RBC 5.02 10*6/uL (4.10-5.20); RDW 14.6 % (11.5-14.5); WBC 7.06 10*3/uL (4.50-10.00)
[2025-05-01] MEDS: LOSARTAN 50 MG TAB PO SCH (08:43)
[2025-05-01] MEDS: ESCITALOPRAM 20 MG TAB PO SCH (08:43)
[2025-05-01] MEDS: amLODIPine 10 MG TAB PO SCH (08:43)
[2025-05-01] MEDS: PANTOPRAZOLE 40 MG TABLET PO SCH (08:44)
[2025-05-01] MEDS: TIOTROPIUM 2.5 MCG INHALER (MHU) INHALATION SCH (08:44)
[2025-05-01] MEDS: FUROSEMIDE 20 MG TAB PO SCH (08:44)
[2025-05-01 08:53] LABS: ALT 18 U/L (4-34); AST 17 U/L (14-36); African American GFR (CKD) >90 (>60 ml/min/1.73 sqM); Albumin 4.0 g/dL (3.5-5.0); Alkaline Phosphatase 148 U/L (38-126); Anion Gap 10 mmol/L; Blood Urea Nitrogen 14 mg/dL (7-17); Calcium 9.3 mg/dL (8.4-10.2); Carbon Dioxide 25 mmol/L (22-30); Chloride 107 mmol/L (98-107); Glucose 104 mg/dL (74-99); Non-African American GFR(CKD) 86 (>60 ml/min/1.73 sqM); Potassium 3.6 mmol/L (3.5-5.1); Sodium 142 mmol/L (137-145); Total Protein 6.3 g/dL (6.3-8.2)
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
[2025-05-01] MEDS: SUCRALFATE 1 GM TAB PO SCH (12:14)
[2025-05-01 12:44] LABS: Glucose,Whole Blood 90 mg/dL (70-110)
[2025-05-01] MEDS: PSEUDOEPHEDRINE 30 MG TAB PO SCH (14:44)
[2025-05-01 15:22] LABS: Cholesterol 130.00 mg/dL (0.00-200.00); HDL Cholesterol 32.30 mg/dL (40.00-60.00); LDL Cholesterol,Calculated 32.7 mg/dL (0.0-131.0); Triglycerides 325.00 mg/dL (0.00-149.00); VLDL Calculation 65.00 mg/dL (5.00-40.00)
[2025-05-01 15:39] LABS: Glucose,Whole Blood 108 mg/dL (70-110)
[2025-05-01] MEDS: metFORMIN 500 MG TAB PO SCH (17:38)
[2025-05-01 17:39] LABS: Glucose,Whole Blood 93 mg/dL (70-110)
[2025-05-01] MEDS: ALBUTEROL INHALER 60 PUFF/8 GM INHALER (MHU) INHALATION SCH (17:40)
[2025-05-01 20:10] LABS: Glucose,Whole Blood 107 mg/dL (70-110)
--- NOTE | 2025-05-01 23:00 | CONS ---
CONSULTATION REASON FOR CONSULTATION: Advice regarding upper respiratory infection and other issues requested by Psychiatry. HISTORY OF PRESENT ILLNESS: 59-year-old woman with a past medical history of multiple medical issues including COPD, was admitted with major depressive disorder. The patient is complaining of upper respiratory symptoms and some cough also. No chest pain. No palpitation. No fever. PAST MEDICAL HISTORY: Reviewed and include asthma, COPD, and diabetes mellitus. Rest of the history and chart are also reviewed. HOME MEDICATIONS: Reviewed and include Zocor. Rest of medications and doses reviewed. ALLERGIES: Sulbactam. FAMILY HISTORY: No history of smoking, alcohol, or drug use. SOCIAL HISTORY: Previous smoking. REVIEW OF SYSTEMS: 14-point review of systems is negative, except as mentioned earlier. PHYSICAL EXAMINATION: VITAL SIGNS: Pulse is 89, blood pressure 119/75, respirations 20. HEENT: Conjunctivae pale. NECK: No jugular venous distention. CARDIOVASCULAR: S1, S2. RESPIRATION: Few scattered rhonchi. ABDOMEN: Soft, nontender. NERVOUS SYSTEM: Nonfocal. LABORATORY DATA: Reviewed. ASSESSMENT: 1. Major depressive disorder and anxiety. 2. Upper respiratory infection. 3. Chronic obstructive pulmonary disease and asthma. 4. Diabetes mellitus type 2. 5. Hyperlipidemia. 6. Hypertension. 7. Gastroesophageal reflux disease. RECOMMENDATION: Recommend to continue symptomatic treatment. Continue the course of bronchodilators. Also recommend safety testing and continue to monitor. Resume the rest of medication. Guarded prognosis. Further recommendations to follow. MMODL / IJN: [id number] /
[2025-05-02 07:49] LABS: Glucose,Whole Blood 86 mg/dL (70-110)
[2025-05-02] MEDS: ESCITALOPRAM 10 MG TAB PO SCH (08:13)
--- NOTE | 2025-05-02 12:06 | P.PN ---
Progress Note - Text Progress Note Date: 05/02/25 Interval History: Patient was seen wandering the hallways and was directable and agreeable to sp [place] with lyric writer in the office. Patient reports feeling better today, stating groups have been helpful. She states her suicidal ideations comes and goes, no plan or intent. She states sleeping well. At this time patient denies any homicidal ideations, intent or plan. Patient denies any auditory, visual hallucinations and denies any paranoia or delusions. Patient denies any side effects from the medications and has been compliant with meds. Mental Status Exam: General Appearance: Patient appears to be stated age is alert, directable, and cooperative. She has fair grooming and hygiene Behavior: Patient is calmly seated without any agitated behavior. She ambulates via walker Speech: Patient's speech is fluent and nonpressured. Mood/Affect: Mood is improving mildly, affect is congruent and blunted. Suicidality/Homicidality: Patient denies having any homicidal ideation intent or plan. Patient reports suicidal ideations, lessening in intensity Perceptions: Patient denies any visual hallucinations and denies any auditory hallucinations Though content/process: There is no evidence of any delusional thought content and thought process is linear and goal-directed. Memory and concentration: AOX3, grossly intact for the purposes of this session Judgment and insight: Improving mildly Assessment Major depressive disorder, recurrent, moderate Generalized anxiety disorder Plan: -Patient continues to meet criteria for inpatient psychiatric admission for symptom stabilization and safety. Patient has signed adult voluntary form and medication consent and was placed in patient's chart. -Medications: Continue Lexapro 10 mg daily, duloxetine 30 mg daily for depression/anxiety with a plan to taper Lexapro off and increase duloxetine in the upcoming days, continue trazodone 200 mg at bedtime for insomnia -When necessary Ativan and Haldol for agitation/aggression. -Labs: Lab work overall looked well other than abnormal lipid panel however patient is currently on a statin -SW on board for discharge planning. Encouraged the patient to participate in milieu.
[2025-05-02 12:38] LABS: Glucose,Whole Blood 83 mg/dL (70-110)
[2025-05-02 17:43] LABS: Glucose,Whole Blood 92 mg/dL (70-110)
[2025-05-02 20:07] LABS: Glucose,Whole Blood 103 mg/dL (70-110)
[2025-05-03 07:52] LABS: Glucose,Whole Blood 93 mg/dL (70-110)
[2025-05-03] MEDS: ESCITALOPRAM 5 MG TAB PO SCH (08:35)
[2025-05-03] MEDS: DULoxetine HCL 60 MG CAPSULE.DR PO SCH (08:36)
--- NOTE | 2025-05-03 11:26 | P.PN ---
Progress Note - Text Progress Note Date: 05/03/25 Interval History: Patient was seen in the lounge working on the puzzle and was directable and ag reeable to speak with personal lines underwriter in the lounge privately. She states she has been keeping busy by doing word searches and puzzles. Her daughter visited her yesterday during visitations and she is hopeful that her granddaughter will visit her over the weekend. She reports sleeping well with lower anxiety however continues to express depressive symptoms with suicidal ideations, coming and going, still no plan or intent. She reports some constipation and was encouraged to take as needed milk of mag for this. At this time patient denies any homicidal ideations, intent or plan. Patient denies any auditory, visual hallucinations and denies any paranoia or delusions. Patient denies any side effects from the medications and has been compliant with meds. Mental Status Exam: General Appearance: Patient appears to be stated age is alert, directable, and cooperative. She has fair grooming and hygiene Behavior: Patient is calmly seated without any agitated behavior. She ambulates via walker Speech: Patient's speech is fluent and nonpressured. Mood/Affect: Mood is improving mildly, affect is congruent and constricted. Suicidality/Homicidality: Patient denies having any homicidal ideation intent or plan. Patient reports suicidal ideations, waxing and waning with no plan or intent Perceptions: Patient denies any visual hallucinations and denies any auditory hallucinations Though content/process: There is no evidence of any delusional thought content and thought process is linear and goal-directed. Memory and concentration: AOX3, grossly intact for the purposes of this session Judgment and insight: Improving mildly Assessment Major depressive disorder, recurrent, moderate Generalized anxiety disorder Plan: -Patient continues to meet criteria for inpatient psychiatric admission for symptom stabilization and safety. Patient has signed adult voluntary form and medication consent and was placed in patient's chart. -Medications: Increase Cymbalta to 60 mg daily today for depression/anxiety, decrease Lexapro to 5 mg daily with a plan to discontinue in the upcoming days, continue trazodone 200 mg at bedtime for insomnia -When necessary Ativan and Haldol for agitation/aggression. -Labs: Reviewed -SW on board for discharge planning. Encouraged the patient to participate in milieu. Anticipate discharge early next week, home with daughter
[2025-05-03 12:35] LABS: Glucose,Whole Blood 82 mg/dL (70-110)
[2025-05-03 17:47] LABS: Glucose,Whole Blood 99 mg/dL (70-110)
[2025-05-03 20:33] LABS: Glucose,Whole Blood 104 mg/dL (70-110)
[2025-05-04 07:41] LABS: Glucose,Whole Blood 116 mg/dL (70-110)
--- NOTE | 2025-05-04 11:45 | P.PN ---
Progress Note - Text Progress Note Date: 05/04/25 Chief complaint: Suicidal thoughts Interval History: Patient was seen wandering the hallways with her walker and was directable and agreeable to speak with loan underwriter in the office. The patient notes that he continues to have periodic suicidal thoughts but notes that they are less frequent. She notes that the depression is still there but has more concern over the anxiety today and describes it as "a lot". She notes that her sleep was not as good as yesterday. She does note improvements with her energy level. She ate breakfast this morning and was able to concentrate in groups. She notes some side effects including constipation. She will stay with her daughter upon discharge and wants to go to [facility] for counseling. Mental Status Exam: General Appearance: [Patient appears to be stated age is alert, directable, and cooperative.] Behavior: [Patient is calmly seated without any agitated behavior.] Speech: Patient's speech is fluent and nonpressured. Mood/Affect: Mood is improving mildly, affect is congruent and constricted. Suicidality/Homicidality: Patient denies having any suicidal or homicidal ideation intent or plan. Perceptions: Patient denies any visual hallucinations [and denies any auditory hallucinations] Though content/process: [There is no evidence of any delusional thought content and thought process is linear and goal-directed.] Memory and concentration: AOX3, grossly intact for the purposes of this session Judgment and insight: Improving mildly Assessment Major depressive disorder, recurrent, moderate Generalized anxiety disorder Assessment: The patient is still having suicidal thoughts it is felt at this time she needs to continue at this level of care. No changes in medication today tomorrow will make adjustments including discontinuing the Lexapro. Plan: -Patient continues to meet criteria for inpatient psychiatric admission for symptom stabilization and safety. Patient has signed adult voluntary form and medication consent and was placed in patient's chart. -Medications: Continue Cymbalta to 60 mg daily today for depression/anxiety, discontinue tomorrow Lexapro to 5 mg daily with a plan to discontinue in the upcoming days, continue trazodone 200 mg at bedtime for insomnia -When necessary Ativan and Haldol for agitation/aggression. -Labs: Reviewed -SW on board for discharge planning. Encouraged the patient to participate in milieu. Anticipate discharge early next week, home with daughter
[2025-05-04 12:36] LABS: Glucose,Whole Blood 91 mg/dL (70-110)
[2025-05-04 17:40] LABS: Glucose,Whole Blood 99 mg/dL (70-110)
[2025-05-04 20:16] LABS: Glucose,Whole Blood 110 mg/dL (70-110)
[2025-05-05 07:50] LABS: Glucose,Whole Blood 100 mg/dL (70-110)
[2025-05-05 12:40] LABS: Glucose,Whole Blood 97 mg/dL (70-110)
--- NOTE | 2025-05-05 13:57 | P.PN ---
Progress Note - Text Progress Note Date: 05/05/25 Chief complaint: Suicidal thoughts Interval History: Patient was seen wandering the hallways and was directable and agreeable to speak with lyric writer in the office. The patient notes that she is doing better. She notes no suicidal thoughts today this is the first time she has not reported having suicidal thoughts. She notes that her depression is mild and her anxiety is decreased to moderate. She notes that she has had improvements in sleep and has slept through the night. She notes that her energy is returned to normal. She denies any problems with appetite or concentration. She notes that she is having tingling of her lips and does not know if this is related to the new medication. Mental Status Exam: General Appearance: Patient appears to be stated age is alert, directable, and cooperative. Behavior: Patient is calmly seated without any agitated behavior. Speech: Patient's speech is fluent and nonpressured. Mood/Affect: Mood is improving mildly, affect is congruent and constricted. Suicidality/Homicidality: Patient denies having any suicidal or homicidal ideation intent or plan. Perceptions: Patient denies any visual hallucinations and denies any auditory hallucinations Though content/process: There is no evidence of any delusional thought content and thought process is linear and goal-directed. Memory and concentration: AOX3, grossly intact for the purposes of this session Judgment and insight: Improving mildly Assessment Major depressive disorder, recurrent, moderate Generalized anxiety disorder Assessment: The patient is showing signs of improvement today is the first day she has not reported suicidal thoughts. Additionally she notes decreasing levels of depression as well as anxiety. Is currently felt to hold off on the increase in Cymbalta due to patient having some tingling in her lips this resolves tomorrow will increase the dose. Anticipated discharge next week. Plan: -Patient continues to meet criteria for inpatient psychiatric admission for symptom stabilization and safety. Patient has signed adult voluntary form and medication consent and was placed in patient's chart. -Medications: Continue Cymbalta to 60 mg daily today for depression/anxiety possible increase tomorrow Trazodone 200 mg at bedtime for insomnia -When necessary Ativan and Haldol for agitation/aggression. -Labs: Reviewed -SW on board for discharge planning. Encouraged the patient to participate in milieu. Anticipate discharge early next week, home with daughter
[2025-05-05 17:25] LABS: Glucose,Whole Blood 102 mg/dL (70-110)
[2025-05-05 20:15] LABS: Glucose,Whole Blood 106 mg/dL (70-110)
[2025-05-05 21:24] VITALS: RESP 16
[2025-05-06 07:41] LABS: Glucose,Whole Blood 100 mg/dL (70-110)
--- NOTE | 2025-05-06 10:28 | P.CN ---
Psychiatric Consult - . Consult date: 05/06/25 Consult:: 05/06/25 10:14 Chief complaint: Suicidal thoughts Interval History: Patient was seen wandering the hallways and was directable and agreeable to speak with machine sign writer in the office. The patient notes that she is not doing as well as she was yesterday. She notes that she wakes up in the middle the night in a panic and had a hard time going back to sleep after that. She notes that her day is frustrating so far. She does note that she spoke with her daughter yesterday that was positive. She notes that the tingling in her lips have gone away. She is ready to try the increased dose of Cymbalta due to her depression being mild and her anxiety being moderate. She denies any active suicidal thoughts. She notes that her energy is "okay". She feels that her appetite is off the did not give her the food that she ordered which frustrated her. She notes that she cannot stay concentrated but is able to focus when she needs to. She continues to plan to go stay with her daughter and follow-up with [facility] on discharge. Mental Status Exam: General Appearance: Patient appears to be stated age is alert, directable, and cooperative. Behavior: Patient is calmly seated without any agitated behavior. Speech: Patient's speech is fluent and nonpressured. Mood/Affect: Mood is improving mildly, affect is congruent and constricted. Suicidality/Homicidality: Patient denies having any suicidal or homicidal ideation intent or plan. Perceptions: Patient denies any visual hallucinations and denies any auditory hallucinations Though content/process: There is no evidence of any delusional thought content and thought process is linear and goal-directed. Memory and concentration: AOX3, grossly intact for the purposes of this session Judgment and insight: Improving mildly Assessment Major depressive disorder, recurrent, moderate Generalized anxiety disorder Assessment: The patient is having "a bad day". At this time we will make adjustments in medication anticipate discharge on Wednesday or Wednesday next week. Plan: -Patient continues to meet criteria for inpatient psychiatric admission for symptom stabilization and safety. Patient has signed adult voluntary form and medication consent and was placed in patient's chart. -Medications: Continue Trazodone 200 mg at bedtime for insomnia Increase Cymbalta to 60 mg daily and 30 mg at night for depression/anxiety possible increase tomorrow -When necessary Ativan and Haldol for agitation/aggression. -Labs: Reviewed -SW on board for discharge planning. Encouraged the patient to participate in milieu. Anticipate discharge early next week, home with daughter
[2025-05-06 12:42] LABS: Glucose,Whole Blood 97 mg/dL (70-110)
[2025-05-06 17:38] LABS: Glucose,Whole Blood 83 mg/dL (70-110)
[2025-05-06 19:54] LABS: Glucose,Whole Blood 105 mg/dL (70-110)
[2025-05-07 07:48] LABS: Glucose,Whole Blood 114 mg/dL (70-110)
[2025-05-07] MEDS: NON FORMULARY DRUG (Dulaglutide [Trulicity] 0.75 MG/0.5 ML Each) SQ SCH (08:54)
--- NOTE | 2025-05-07 11:38 | P.PN ---
Progress Note - Text Progress Note Date: 05/06/25 Chief complaint: Suicidal thoughts Interval History: Patient was seen wandering the hallways and was directable and agreeable to speak with filing writer in the office. The patient notes that she is not doing as well as she was yesterday. She notes that she wakes up in the middle the night in a panic and had a hard time going back to sleep after that. She notes that her day is frustrating so far. She does note that she spoke with her daughter yesterday that was positive. She notes that the tingling in her lips have gone away. She is ready to try the increased dose of Cymbalta due to her depression being mild and her anxiety being moderate. She denies any active suicidal thoughts. She notes that her energy is "okay". She feels that her appetite is off the did not give her the food that she ordered which frustrated her. She notes that she cannot stay concentrated but is able to focus when she needs to. She continues to plan to go stay with her daughter and follow-up with [facility] on discharge. Mental Status Exam: General Appearance: Patient appears to be stated age is alert, directable, and cooperative. Behavior: Patient is calmly seated without any agitated behavior. Speech: Patient's speech is fluent and nonpressured. Mood/Affect: Mood is improving mildly, affect is congruent and constricted. Suicidality/Homicidality: Patient denies having any suicidal or homicidal ideation intent or plan. Perceptions: Patient denies any visual hallucinations and denies any auditory hallucinations Though content/process: There is no evidence of any delusional thought content and thought process is linear and goal-directed. Memory and concentration: AOX3, grossly intact for the purposes of this session Judgment and insight: Improving mildly Assessment Major depressive disorder, recurrent, moderate Generalized anxiety disorder Assessment: The patient is having "a bad day". At this time we will make adjustments in medication anticipate discharge on Wednesday or Wednesday next week. Plan: -Patient continues to meet criteria for inpatient psychiatric admission for symptom stabilization and safety. Patient has signed adult voluntary form and medication consent and was placed in patient's chart. -Medications: Continue Trazodone 200 mg at bedtime for insomnia Increase Cymbalta to 60 mg daily and 30 mg at night for depression/anxiety possible increase tomorrow -When necessary Ativan and Haldol for agitation/aggression. -Labs: Reviewed -SW on board for discharge planning. Encouraged the patient to participate in milieu. Anticipate discharge early next week, home with daughter
--- NOTE | 2025-05-07 11:50 | P.PN ---
Progress Note - Text Progress Note Date: 05/07/25 Chief complaint: Suicidal thoughts Interval History: Patient was seen wandering the hallways and was directable and agreeable to speak with contract technical writer in the office. The patient is doing better today and notes that she feels that she is ready to return to her daughter's house. She notes that there was some stress her conversations yesterday concerning disagreements between the two, however that it has been resolved. The patient plans to follow-up with [facility] and was wondering whether we could send the medications to the [facility] in the hospital. The patient currently reports no depression or anxiety versus yesterday where she was mildly depressed and moderately anxious. She is denying any ongoing suicidal thoughts. She feels that her sleep is improved specifically due to temperature dysregulation in the room and has finally got up to the right temperature. She notes that her energy is normal. She denies any problems with her appetite today yesterday it was decreased. She feels that her concentration is back to normal. She did attend group and started processing information. Mental Status Exam: General Appearance: Patient appears to be stated age is alert, directable, and cooperative. Behavior: Patient is calmly seated without any agitated behavior. Speech: Patient's speech is fluent and nonpressured. Mood/Affect: Mood is improving mildly, affect is congruent and constricted. Suicidality/Homicidality: Patient denies having any suicidal or homicidal ideation intent or plan. Perceptions: Patient denies any visual hallucinations and denies any auditory hallucinations Though content/process: There is no evidence of any delusional thought content and thought process is linear and goal-directed. Memory and concentration: AOX3, grossly intact for the purposes of this session Judgment and insight: Improving mildly Assessment Major depressive disorder, recurrent, moderate Generalized anxiety disorder Assessment: The patient is doing better today she appears that she is ready to go home anticipated discharge tomorrow. Plan: -Patient continues to meet criteria for inpatient psychiatric admission for symptom stabilization and safety. Patient has signed adult voluntary form and medication consent and was placed in patient's chart. -Medications: Continue Trazodone 200 mg at bedtime for insomnia Cymbalta to 60 mg daily and 30 mg at night for depression/anxiety possible increase tomorrow -When necessary Ativan and Haldol for agitation/aggression. -Labs: Reviewed -SW on board for discharge planning. Encouraged the patient to participate in milieu. Anticipate discharge early next week, home with daughter
[2025-05-07 12:50] LABS: Glucose,Whole Blood 126 mg/dL (70-110)
[2025-05-07 17:37] LABS: Glucose,Whole Blood 90 mg/dL (70-110)
[2025-05-07 20:19] LABS: Glucose,Whole Blood 104 mg/dL (70-110)
[2025-05-08 07:44] LABS: Glucose,Whole Blood 110 mg/dL (70-110)
[2025-05-08] MEDS: MAGNESIUM HYDROXIDE 2,400 MG/30 ML CUP PO PRN (07:55)
[2025-05-08 08:42] VITALS: BP 119/72; PULSE 69; TEMP 98.2
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
[2025-05-08 12:59] LABS: Glucose,Whole Blood 100 mg/dL (70-110)
== END 2025-05-08 15:20 | disposition home or self-care (01) | DRG 885 ==
LOC: EC 11:36 → 3MHU 19:40
PROVIDERS: ADMIT Psychiatry & Neurology Psychiatry; ATTEND Psychiatry & Neurology Psychiatry
DX: F33.1 Major depressive disorder, recurrent, moderate (principal); E11.9 Type 2 diabetes mellitus without complications; R45.851 Suicidal ideations; J43.9 Emphysema, unspecified; I10 Essential (primary) hypertension; J44.89 Other specified chronic obstructive pulmonary disease; E78.5 Hyperlipidemia, unspecified; F41.1 Generalized anxiety disorder; G47.00 Insomnia, unspecified; J06.9 Acute upper respiratory infection, unspecified; K21.9 Gastro-esophageal reflux disease without esophagitis; K59.00 Constipation, unspecified; Z79.84 Long term (current) use of oral hypoglycemic drugs; Z79.899 Other long term (current) drug therapy; Z81.8 Family history of other mental and behavioral disorders; Z85.828 Personal history of other malignant neoplasm of skin; Z87.891 Personal history of nicotine dependence; Z90.710 Acquired absence of both cervix and uterus; Z91.51 Personal history of suicidal behavior; Z11.52 Encounter for screening for COVID-19
CPT/HCPCS: 80053; 80061; 80306; 81003; 83036; 84443; 85025; 87636; 99285